=== PATIENT | female | born 1995 | race Caucasian/White ===

== ENCOUNTER 2016-05-06 13:44 | Emergency (ER) | payer OTHER ==
[2016-05-06] MEDS ORDERED: LORazepam 2 MG/ML SYRINGE IM STA (14:50)
[2016-05-06] MEDS ORDERED: ONDANSETRON 4 MG/2 ML VIAL IM STA (14:50)
--- NOTE | 2016-05-06 14:51 | ED ---
General Adult HPI - General Chief complaint: Anxiety Stated complaint: ANXIETY Time Seen by Provider: 05/06/16 14:47 Source: patient, RN notes reviewed Mode of arrival: ambulatory Limitations: no limitations - History of Present Illness Initial comments: Patient is a pleasant 21-year-old female presenting to the emergency department complaining of anxiety. Patient has chronic anxiety. Symptoms worsened last night around 7:00. Patient did not sleep well through the night. Patient is unable to take her anxiety medicine at this time secondary to nausea and vomiting which she also attributes to her anxiety. No fevers. Patient has had increased stress recently. - Related Data Home Medications Medication Instructions Recorded Confirmed Promethazine [Phenergan] 25 mg PO Q6H PRN 07/11/14 05/06/16 busPIRone HCL 15 mg PO BID 07/12/14 05/06/16 ALPRAZolam [Xanax] 0.5 mg PO TID PRN 05/06/16 05/06/16 Loratadine [Claritin] 10 mg PO DAILY 05/06/16 05/06/16 Mirtazapine [Remeron] 15 mg PO HS 05/06/16 05/06/16 Ondansetron [Zofran ODT] 8 mg PO Q8H PRN 05/06/16 05/06/16 Sertraline [Zoloft] 150 mg PO DAILY 05/06/16 05/06/16 Allergies Allergy/AdvReac Type Severity Reaction Status Date / Time No Known Allergies Allergy Verified 05/06/16 14:58 Review of Systems ROS Statement: Those systems with pertinent positive or pertinent negative responses have been documented in the HPI. ROS Other: All systems not noted in ROS Statement are negative. Constitutional: Denies: fever Eyes: Denies: eye pain ENT: Denies: ear pain Respiratory: Denies: cough Cardiovascular: Denies: chest pain Endocrine: Denies: fatigue Gastrointestinal: Reports: nausea, vomiting Genitourinary: Denies: dysuria Skin: Denies: rash Neurological: Denies: weakness Psychiatric: Reports: anxiety Past Medical History Past Medical History: No Reported History Additional Past Medical History / Comment(s): anxiety and nausea History of Any Multi-Drug Resistant Organisms: None Reported Past Surgical History: Adenoidectomy, Tonsillectomy Past Psychological History: Anxiety, Panic Disorder Smoking Status: Light tobacco smoker Past Alcohol Use History: None Reported Past Drug Use History: None Reported General Exam Limitations: no limitations General appearance: alert, anxious Head exam: Present: atraumatic Eye exam: Present: normal appearance, PERRL ENT exam: Present: normal oropharynx Neck exam: Present: normal inspection Respiratory exam: Present: normal lung sounds bilaterally Cardiovascular Exam: Present: tachycardia GI/Abdominal exam: Present: soft. Absent: tenderness Extremities exam: Present: normal inspection Neurological exam: Present: alert Psychiatric exam: Present: anxious Skin exam: Absent: rash Course Vital Signs 05/06/16 05/06/16 14:30 15:05 Temperature 98.6 F Pulse Rate 112 H 68 Respiratory 24 30 H Rate Blood Pressure 109/71 106/55 O2 Sat by Pulse 97 100 Oximetry Medical Decision Making - Medical Decision Making Patient reexamined and resting comfortably in bed. Patient appears much better and does request discharge home. Disposition Clinical Impression: Acute anxiety Disposition: HOME SELF-CARE Condition: Stable Instructions: Generalized Anxiety Disorder (ED) Additional Instructions: Please follow-up with your doctor in be in a week. Return for change or worsening symptoms or other concerns. Referrals: Rory Miner DO [Primary Care Provider] - 1-2 days
[2016-05-06 16:27] VITALS: BP 120/66; PULSE 65; RESP 16; TEMP 97.5
== END 2016-05-06 16:27 | disposition home or self-care (01) ==
LOC: EC 13:44
DX: F41.9 Anxiety disorder, unspecified (principal); F41.0 Panic disorder [episodic paroxysmal anxiety]; F17.200 Nicotine dependence, unspecified, uncomplicated; Z79.899 Other long term (current) drug therapy
CPT/HCPCS: 99283; 96372 ×2; J2060; J2405

== ENCOUNTER 2016-06-10 19:59 | Emergency (ER) | payer OTHER ==
[2016-06-10] MEDS ORDERED: ONDANSETRON 4 MG/2 ML VIAL IVP STA (20:48)
[2016-06-10] MEDS ORDERED: SODIUM CHLORIDE 0.9% 1,000 ML IV ONE (20:48)
[2016-06-10] MEDS ORDERED: LORazepam 2 MG/ML SYRINGE IV STA (20:48)
[2016-06-10 21:02] LABS: Basophils % (A) 0 %; CH 27.7; Eosinophils # (A) 0.1 k/uL (0-0.7); Eosinophils % (A) 1 %; HCT 43.9 % (34.0-46.0); HDW 2.37; HGB 14.1 gm/dL (11.4-16.0); Luc % (Auto) 1; Lymphocytes % (A) 22 %; MCH 27.2 pg (25.0-35.0); MCHC 32.2 g/dL (31.0-37.0); MCV 84.3 fL (80.0-100.0); Mean Platelet Volume 6.2; Monocytes # (A) 0.3 k/uL (0-1.0); Monocytes % (A) 4 %; Neutrophils # (A) 6.4 k/uL (1.3-7.7); Neutrophils % (A) 71 %; RDW 12.9 % (11.5-15.5); WBC (Perox) 9.23
[2016-06-10 21:11] LABS: ALT 25 U/L (9-52); AST 23 U/L (14-36); Alkaline Phosphatase 89 U/L (38-126); Anion Gap 16 mmol/L; Blood Urea Nitrogen 6 mg/dL (7-17); Calcium 10.5 mg/dL (8.4-10.2); Carbon Dioxide 23 mmol/L (22-30); Chloride 103 mmol/L (98-107); Glucose 116 mg/dL (74-99); Non-African American GFR(MDRD) >60 (>60 ml/min/1.73 sqM); Potassium 4.2 mmol/L (3.5-5.1); Sodium 142 mmol/L (137-145); Total Bilirubin 0.5 mg/dL (0.2-1.3); Total Protein 8.3 g/dL (6.3-8.2)
[2016-06-10 22:23] LABS: Appearance,Urine Cloudy (Clear); Bilirubin,Urine Negative (Negative); Glucose,Urine (UA) Negative (Negative); Ketones,Urine Negative (Negative); Leukocyte Esterase,Urine Negative (Negative); Mucus,Urine Occasional /hpf; Nitrite,Urine Negative (Negative); Particle Count 6598; Protein,Urine Trace (Negative); Specific Gravity,Urine 1.014 (1.001-1.035); Squamous Epithelial Cell,Urine 3 /hpf (0-4); UA Billing (MACRO vs. MICRO) MICRO; Urobilinogen,Urine <2.0 mg/dL (<2.0); WBC,Urine 1 /hpf (0-5)
--- NOTE | 2016-06-10 23:03 | ED ---
General Adult HPI - General Chief complaint: Anxiety Stated complaint: Anxiety Time Seen by Provider: 06/10/16 20:10 Source: patient Mode of arrival: EMS Limitations: no limitations - History of Present Illness Initial comments: 21-year-old female presenting for evaluation of anxiety with nausea and vomiting that started today. She states that she has a long-standing history of anxiety and it does present itself with nausea and vomiting during her severe exacerbations. She states that her grandfather recently which is been a stressor on her causing her to not eat over the last 3 weeks. She states that she will have the occasional cracker and a sip or 2 of water. Over the last 2 days she has been started to eat again but today without provocation or identifiable etiology she had an acute anxiety attack which express itself with severe anxiety, nausea, and vomiting. There is no associated hematemesis and she is only vomiting of stomach contents. She denies any preceding abdominal pain, dysuria, or diarrhea. 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 - Related Data Home Medications Medication Instructions Recorded Confirmed busPIRone HCL 15 mg PO BID 07/12/14 06/10/16 ALPRAZolam [Xanax] 0.5 - 1 mg PO TID PRN 05/06/16 06/10/16 Mirtazapine [Remeron] 15 mg PO HS 05/06/16 06/10/16 Ondansetron [Zofran ODT] 8 mg PO Q8H PRN 05/06/16 06/10/16 Sertraline [Zoloft] 150 mg PO DAILY 05/06/16 06/10/16 Allergies Allergy/AdvReac Type Severity Reaction Status Date / Time No Known Allergies Allergy Verified 06/10/16 20:17 Review of Systems ROS Statement: Those systems with pertinent positive or pertinent negative responses have been documented in the HPI. ROS Other: All systems not noted in ROS Statement are negative. Constitutional: Denies: fever, chills Eyes: Denies: eye pain, eye discharge ENT: Denies: ear pain, throat pain Respiratory: Denies: cough, dyspnea Cardiovascular: Denies: chest pain, palpitations Endocrine: Denies: polydipsia, polyuria Gastrointestinal: Reports: nausea, vomiting. Denies: abdominal pain, diarrhea, constipation, hematemesis, melena, hematochezia Genitourinary: Denies: urgency, dysuria Musculoskeletal: Denies: back pain, myalgia Skin: Denies: rash, lesions Neurological: Denies: headache, weakness Psychiatric: Reports: anxiety. Denies: homicidal thoughts, suicidal thoughts Past Medical History Past Medical History: No Reported History Additional Past Medical History / Comment(s): anxiety and nausea History of Any Multi-Drug Resistant Organisms: None Reported Past Surgical History: Adenoidectomy, Tonsillectomy Past Psychological History: Anxiety, Panic Disorder Smoking Status: Light tobacco smoker Past Alcohol Use History: None Reported Past Drug Use History: Marijuana General Exam Limitations: no limitations General appearance: alert, anxious Head exam: Present: atraumatic, normocephalic Eye exam: Present: normal appearance, EOMI ENT exam: Present: normal exam, normal oropharynx Neck exam: Present: normal inspection, tenderness Respiratory exam: Present: normal lung sounds bilaterally. Absent: respiratory distress, wheezes, rales Cardiovascular Exam: Present: normal rhythm, tachycardia GI/Abdominal exam: Present: soft. Absent: distended, tenderness, guarding Rectal exam: Present: deferred Extremities exam: Present: normal inspection, full ROM Back exam: Present: normal inspection, full ROM Neurological exam: Present: alert, oriented X3, normal gait Psychiatric exam: Present: normal affect, normal mood Skin exam: Present: warm, dry, intact Course Vital Signs 06/10/16 06/10/16 06/10/16 20:01 21:14 23:10 Temperature 98.8 F 97.2 F L Pulse Rate 129 H 115 H 114 H Respiratory 34 H 22 16 Rate Blood Pressure 141/83 129/81 138/62 O2 Sat by Pulse 99 97 97 Oximetry Medical Decision Making - Medical Decision Making 21-year-old female presented for evaluation of anxiety attack of sudden onset today. Patient states that her anxiety attacks have a concurrent nausea and vomiting component which she has been experiencing since the onset of her symptoms. Denies any preceding abdominal pain, dysuria, vaginal discharge or bleeding, or diarrhea. Physical examination reveals a markedly distressed and anxious female who is tearful but obeying commands. Physical exam is benign reveals no significant abnormalities. Although this is consistent with previous anxiety attacks we'll obtain laboratory workup to rule out any medical etiology. Labs revealed no significant abnormalities including negative for UTI and urine . The patient was reevaluated after being given Ativan and had marked improvement in symptoms, sitting on bed without crying and able to smile. The patient was informed of these results and that she would be discharged with instructions to follow-up with her primary care physician for further psychiatric referral. She was advised to return to this facility if her symptoms should worsen or persist. She acknowledged an understanding of this information and agreed with this plan of care. - Lab Data Result diagrams: 06/10/16 20:40 06/10/16 20:40 Lab Results 06/10/16 06/10/16 06/10/16 Range/Units 20:40 20:40 22:00 WBC 9.0 (3.8-10.6) k/uL RBC 5.20 (3.80-5.40) m/uL Hgb 14.1 (11.4-16.0) gm/dL Hct 43.9 (34.0-46.0) % MCV 84.3 (80.0-100.0) fL MCH 27.2 (25.0-35.0) pg MCHC 32.2 (31.0-37.0) g/dL RDW 12.9 (11.5-15.5) % Plt Count 428 (150-450) k/uL Neutrophils % 71 % Lymphocytes % 22 % Monocytes % 4 % Eosinophils % 1 % Basophils % 0 % Neutrophils # 6.4 (1.3-7.7) k/uL Lymphocytes # 2.0 (1.0-4.8) k/uL Monocytes # 0.3 (0-1.0) k/uL Eosinophils # 0.1 (0-0.7) k/uL Basophils # 0.0 (0-0.2) k/uL Sodium 142 (137-145) mmol/L Potassium 4.2 (3.5-5.1) mmol/L Chloride 103 (98-107) mmol/L Carbon Dioxide 23 (22-30) mmol/L Anion Gap 16 mmol/L BUN 6 L (7-17) mg/dL Creatinine 0.50 L (0.52-1.04) mg/dL Est GFR (MDRD) Af Amer >60 (>60 ml/min/1.73 sqM) Est GFR (MDRD) Non-Af >60 (>60 ml/min/1.73 sqM) Glucose 116 H (74-99) mg/dL Calcium 10.5 H (8.4-10.2) mg/dL Total Bilirubin 0.5 (0.2-1.3) mg/dL AST 23 (14-36) U/L ALT 25 (9-52) U/L Alkaline Phosphatase 89 (38-126) U/L Total Protein 8.3 H (6.3-8.2) g/dL Albumin 5.0 (3.5-5.0) g/dL Lipase 32 (23-300) U/L Urine Color Urine Appearance (Clear) Urine pH (5.0-8.0) Ur Specific [place] (1.001-1.035) Urine Protein (Negative) Urine Glucose (UA) (Negative) Urine Ketones (Negative) Urine Blood (Negative) Urine Nitrate (Negative) Urine Bilirubin (Negative) Urine Urobilinogen (<2.0) mg/dL Ur Leukocyte Esterase (Negative) Urine WBC (0-5) /hpf Ur Squamous Epith Cells (0-4) /hpf Urine Mucus (None) /hpf Urine HCG, Qual Not Detected (Not Detectd) 06/10/16 Range/Units 22:00 WBC (3.8-10.6) k/uL RBC (3.80-5.40) m/uL Hgb (11.4-16.0) gm/dL Hct (34.0-46.0) % MCV (80.0-100.0) fL MCH (25.0-35.0) pg MCHC (31.0-37.0) g/dL RDW (11.5-15.5) % Plt Count (150-450) k/uL Neutrophils % % Lymphocytes % % Monocytes % % Eosinophils % % Basophils % % Neutrophils # (1.3-7.7) k/uL Lymphocytes # (1.0-4.8) k/uL Monocytes # (0-1.0) k/uL Eosinophils # (0-0.7) k/uL Basophils # (0-0.2) k/uL Sodium (137-145) mmol/L Potassium (3.5-5.1) mmol/L Chloride (98-107) mmol/L Carbon Dioxide (22-30) mmol/L Anion Gap mmol/L BUN (7-17) mg/dL Creatinine (0.52-1.04) mg/dL Est GFR (MDRD) Af Amer (>60 ml/min/1.73 sqM) Est GFR (MDRD) Non-Af (>60 ml/min/1.73 sqM) Glucose (74-99) mg/dL Calcium (8.4-10.2) mg/dL Total Bilirubin (0.2-1.3) mg/dL AST (14-36) U/L ALT (9-52) U/L Alkaline Phosphatase (38-126) U/L Total Protein (6.3-8.2) g/dL Albumin (3.5-5.0) g/dL Lipase (23-300) U/L Urine Color Yellow Urine Appearance Cloudy H (Clear) Urine pH 8.0 (5.0-8.0) Ur Specific [place] 1.014 (1.001-1.035) Urine Protein Trace H (Negative) Urine Glucose (UA) Negative (Negative) Urine Ketones Negative (Negative) Urine Blood Negative (Negative) Urine Nitrate Negative (Negative) Urine Bilirubin Negative (Negative) Urine Urobilinogen <2.0 (<2.0) mg/dL Ur Leukocyte Esterase Negative (Negative) Urine WBC 1 (0-5) /hpf Ur Squamous Epith Cells 3 (0-4) /hpf Urine Mucus Occasional H (None) /hpf Urine HCG, Qual (Not Detectd) Disposition Clinical Impression: Anxiety, Nausea & vomiting Disposition: HOME SELF-CARE Condition: Stable Instructions: Generalized Anxiety Disorder (ED) Referrals: Rory Miner DO [Primary Care Provider] - 1-2 days Time of Disposition: 23:03
[2016-06-10 23:13] VITALS: BP 138/62; PULSE 114; RESP 16; TEMP 97.2
== END 2016-06-10 23:10 | disposition home or self-care (01) ==
LOC: EC 19:59
DX: F41.9 Anxiety disorder, unspecified (principal); R11.2 Nausea with vomiting, unspecified; F41.0 Panic disorder [episodic paroxysmal anxiety]; F17.200 Nicotine dependence, unspecified, uncomplicated; Z79.899 Other long term (current) drug therapy
CPT/HCPCS: 36415; 80053; 83690; 85025; 81001; 81025; 96374; 96375; 96361 ×2; 99283; J2060; J2405

== ENCOUNTER 2016-08-28 04:14 | Emergency (ER) | payer OTHER ==
[2016-08-28 04:45] VITALS: TEMP 98.5
[2016-08-28] MEDS ORDERED: LORazepam 2 MG/ML SYRINGE IM STA (05:06)
--- NOTE | 2016-08-28 05:08 | ED ---
General Adult HPI - General Chief complaint: Anxiety Stated complaint: anxiety Time Seen by Provider: 08/28/16 04:43 Source: patient, RN notes reviewed Mode of arrival: wheelchair Limitations: no limitations - History of Present Illness Initial comments: Patient is a pleasant 21-year-old female presenting to the emergency department with concerns for anxiety. Patient has chronic anxiety. Patient states she cannot afford her medication and has been off her Xanax recently. Patient states symptoms are similar to her prior anxiety. Patient feels tense all over. - Related Data Home Medications Medication Instructions Recorded Confirmed busPIRone HCL 15 mg PO BID 07/12/14 08/28/16 ALPRAZolam [Xanax] 0.5 - 1 mg PO TID PRN 05/06/16 08/28/16 Mirtazapine [Remeron] 15 mg PO HS 05/06/16 08/28/16 Ondansetron [Zofran ODT] 8 mg PO Q8H PRN 05/06/16 08/28/16 Sertraline [Zoloft] 150 mg PO DAILY 05/06/16 08/28/16 Previous Rx's Medication Instructions Recorded Ondansetron Odt [Zofran Odt] 4 mg PO Q8HR PRN #10 tab 08/28/16 Allergies Allergy/AdvReac Type Severity Reaction Status Date / Time No Known Allergies Allergy Verified 08/28/16 04:31 Review of Systems ROS Statement: Those systems with pertinent positive or pertinent negative responses have been documented in the HPI. ROS Other: All systems not noted in ROS Statement are negative. Constitutional: Denies: fever Eyes: Denies: eye pain ENT: Denies: ear pain Respiratory: Denies: cough Cardiovascular: Denies: chest pain Endocrine: Denies: fatigue Gastrointestinal: Denies: abdominal pain Genitourinary: Denies: dysuria Musculoskeletal: Denies: arthralgia Skin: Denies: rash Neurological: Denies: weakness Psychiatric: Reports: anxiety Past Medical History Past Medical History: No Reported History Additional Past Medical History / Comment(s): anxiety and nausea History of Any Multi-Drug Resistant Organisms: None Reported Past Surgical History: Adenoidectomy, Tonsillectomy Past Psychological History: Anxiety, Panic Disorder Smoking Status: Light tobacco smoker Past Alcohol Use History: None Reported Past Drug Use History: Marijuana General Exam Limitations: no limitations General appearance: alert, anxious Head exam: Present: atraumatic Eye exam: Present: normal appearance, PERRL Pupils: Present: mydriatic ENT exam: Present: normal oropharynx Neck exam: Present: normal inspection Respiratory exam: Present: normal lung sounds bilaterally Cardiovascular Exam: Present: tachycardia GI/Abdominal exam: Present: soft. Absent: distended, tenderness, guarding, rebound, rigid Extremities exam: Present: normal inspection Back exam: Present: normal inspection Neurological exam: Present: alert Psychiatric exam: Present: anxious Skin exam: Present: normal color Course Vital Signs 08/28/16 08/28/16 08/28/16 04:28 05:34 06:01 Temperature 98.5 F Pulse Rate 142 H 103 H Respiratory 40 H 20 Rate Blood Pressure 94/81 122/75 O2 Sat by Pulse 98 99 Oximetry Medical Decision Making - Medical Decision Making Patient reexamined and significant improvement. Patient resting comfortably in bed. Vital signs improved. Patient comfortable discharge. Patient does request nausea medicine for home. Patient states she will follow-up with her doctor today. Disposition Clinical Impression: Acute anxiety Disposition: HOME SELF-CARE Condition: Stable Instructions: Generalized Anxiety Disorder (ED) Additional Instructions: please follow-up today with her doctor as planned. Return for worsening symptoms or other concerns. Prescriptions: Ondansetron Odt [Zofran Odt] 4 mg PO Q8HR PRN #10 tab PRN Reason: Nausea Referrals: Rory Miner DO [Primary Care Provider] - 1-2 days Time of Disposition: 06:08
[2016-08-28 05:35] VITALS: BP 122/75; PULSE 103
[2016-08-28] MEDS ORDERED: ONDANSETRON ODT 4 MG TAB PO STA (05:36)
[2016-08-28 06:01] VITALS: RESP 20
== END 2016-08-28 06:17 | disposition home or self-care (01) ==
LOC: EC 04:14
DX: F41.9 Anxiety disorder, unspecified (principal); R00.0 Tachycardia, unspecified; F17.200 Nicotine dependence, unspecified, uncomplicated; Z79.899 Other long term (current) drug therapy
CPT/HCPCS: 99282; 96372; J2060

== ENCOUNTER 2017-01-04 15:19 | Emergency (ER) | payer OTHER ==
[2017-01-04] MEDS ORDERED: LORazepam 1 MG TAB PO STA (15:57)
[2017-01-04] MEDS ORDERED: SODIUM CHLORIDE 0.9% 1,000 ML IV STA ×2 (15:57)
[2017-01-04] MEDS ORDERED: ONDANSETRON 4 MG/2 ML VIAL IVP STA (15:57)
--- NOTE | 2017-01-04 16:04 | ED ---
General Adult HPI - General Chief complaint: Anxiety Stated complaint: anxiety Time Seen by Provider: 01/04/17 15:39 Source: patient, family, RN notes reviewed Mode of arrival: ambulatory Limitations: no limitations - History of Present Illness Initial comments: Chief complaint history of present illness is a 21-year-old female here with him mother. Patient's had a lot of [place] recently. Her father in the last day or 2. Her grandfather with whom she lived for years this past April. Patient has had a long standing history of anxiety. In the past she's been on Xanax as well as Zoloft. Patient reports that she takes that when she took Zoloft in the past because diarrhea. Patient has extreme phobia for vomiting. And feels nauseated all the time. She has used Reglan, Phenergan and Zofran in the past Zofran works best at this time the rest stop working. Patient reports she is depressed grandmother states that she stated she just wanted to go home and lay down and not wake up. She does not have a plan. She has been scratching her forearms. - Related Data Home Medications Medication Instructions Recorded Confirmed busPIRone HCL 15 mg PO BID 07/12/14 01/04/17 ALPRAZolam [Xanax] 0.5 - 1 mg PO TID PRN 05/06/16 01/04/17 Mirtazapine [Remeron] 15 mg PO HS 05/06/16 01/04/17 Ondansetron [Zofran ODT] 8 mg PO Q8H PRN 05/06/16 01/04/17 Previous Rx's Medication Instructions Recorded ALPRAZolam [Xanax] 0.5 mg PO DAILY PRN #5 tablet 01/04/17 Ondansetron Odt [Zofran Odt] 4 mg PO Q8HR PRN #10 tab 01/04/17 Allergies Allergy/AdvReac Type Severity Reaction Status Date / Time No Known Allergies Allergy Verified 01/04/17 16:35 Review of Systems ROS Statement: Those systems with pertinent positive or pertinent negative responses have been documented in the HPI. Review of systems. The patient reports she normally weighs 98 pounds is currently 88 pounds. States she has difficulty eating because she is nauseated and she does not want to vomit so she will need. Diarrhea started yesterday she thinks because of the Zoloft which cause diarrhea in the past. Patient denying any chest pain or shortness of breath. She is extremely anxious and shaky. All systems reviewed. Past history anxiety, surgeries tonsils and adenoids. Family history father recently both mother and father are alcoholics. Father they think of hypertension recently. Patient denies ALLERGIES occasionally smokes, rarely uses alcohol. ROS Other: All systems not noted in ROS Statement are negative. Past Medical History Past Medical History: No Reported History Additional Past Medical History / Comment(s): anxiety and nausea History of Any Multi-Drug Resistant Organisms: None Reported Past Surgical History: Adenoidectomy, Tonsillectomy Past Psychological History: Anxiety, Panic Disorder Smoking Status: Light tobacco smoker Past Alcohol Use History: None Reported Past Drug Use History: Marijuana General Exam - General Exam Comments Initial Comments: General: The patient is awake and alert, patient is distressed. Very anxious. His shaking. Depressed and sad because her father in the last 48 hours. Vital signs temperature 97.1 pulse 137 history of tachycardia in the past. Respiratory rate 24 pulse ox 99% room air blood pressure 138/85. Eye: Pupils are equal, round and reactive to light, extra-ocular movements are intact ; there is normal conjunctiva bilaterally. No signs of icterus. Ears, nose, mouth and throat: There are moist mucous membranes and no oral lesions. Neck: The neck is supple, there is no tenderness . Cardiovascular: Tachycardic heart rate, 1:30. No murmur, rub or gallop is appreciated. Respiratory: Lungs are clear to auscultation, respirations are non-labored, breath sounds are equal. No wheezes, stridor, rales, or rhonchi. Gastrointestinal: Patient complains of feeling nauseated but she hasn't eaten anything or has had anything to drink because she is deathly afraid of vomiting. States she's had loose stool for the past day after restarting Zoloft Back: There is no tenderness to palpation in the midline. There is no obvious deformity. No rashes noted. Musculoskeletal: Patient has a history of cutting herself she is recently restarted causing abrasions to her left forearm. None of which are infected or deep. Neurological: No neuro deficits. No balance problems. Able to walk. She does have shakes from anxiety. Skin: Skin is warm and dry and no rashes or lesions are noted. Psychiatric: Severe anxiety. States she used to see a counselor but didn't get along with the counselor. Used to take Zoloft but cause diarrhea. Has taken Xanax 0.5 on occasion when her anxiety becomes really bad. Denies a plan for suicide but reports she is depressed. Limitations: no limitations Course Vital Signs 01/04/17 01/04/17 15:30 17:44 Temperature 97.1 F L 98.2 F Pulse Rate 130 H 125 H Respiratory 24 18 Rate Blood Pressure 138/85 104/55 O2 Sat by Pulse 99 100 Oximetry Medical Decision Making - Medical Decision Making Medical decision making; the patient's white count 7.7 hemoglobin 14 hematocrit 44. Potassium is 4.3 with a BUN of 13 creatinine 0.5 and GFR greater than 60. Glucose 106. TSH normal at 0.47. The patient's feeling much better smiling and laughing. She'll be given a number for social insurance administrator follow-up. She also be given a prescription for Xanax for 5 days. 0.5 mg per dose. And Zofran ODT. - Lab Data Result diagrams: 01/04/17 16:20 01/04/17 16:20 Lab Results 01/04/17 01/04/17 Range/Units 16:20 16:20 WBC 7.7 (3.8-10.6) k/uL RBC 5.26 (3.80-5.40) m/uL Hgb 14.7 (11.4-16.0) gm/dL Hct 44.3 (34.0-46.0) % MCV 84.2 (80.0-100.0) fL MCH 28.0 (25.0-35.0) pg MCHC 33.2 (31.0-37.0) g/dL RDW 13.9 (11.5-15.5) % Plt Count 414 (150-450) k/uL Neutrophils % 67 % Lymphocytes % 26 % Monocytes % 5 % Eosinophils % 1 % Basophils % 0 % Neutrophils # 5.1 (1.3-7.7) k/uL Lymphocytes # 2.0 (1.0-4.8) k/uL Monocytes # 0.4 (0-1.0) k/uL Eosinophils # 0.1 (0-0.7) k/uL Basophils # 0.0 (0-0.2) k/uL Sodium 141 (137-145) mmol/L Potassium 4.3 (3.5-5.1) mmol/L Chloride 106 (98-107) mmol/L Carbon Dioxide 18 L (22-30) mmol/L Anion Gap 17 mmol/L BUN 13 (7-17) mg/dL Creatinine 0.50 L (0.52-1.04) mg/dL Est GFR (MDRD) Af Amer >60 (>60 ml/min/1.73 sqM) Est GFR (MDRD) Non-Af >60 (>60 ml/min/1.73 sqM) Glucose 106 H (74-99) mg/dL Calcium 10.7 H (8.4-10.2) mg/dL Total Bilirubin 1.0 (0.2-1.3) mg/dL AST 21 (14-36) U/L ALT 33 (9-52) U/L Alkaline Phosphatase 94 (38-126) U/L Total Protein 8.2 (6.3-8.2) g/dL Albumin 5.1 H (3.5-5.0) g/dL TSH 0.470 (0.465-4.680) mIU/L Disposition Clinical Impression: Anxiety attack Disposition: HOME SELF-CARE Condition: Stable Instructions: Generalized Anxiety Disorder (ED) Additional Instructions: Follow-up with Dr. Miner. Take Xanax 0.5 as needed one per day. Zofran for nausea vomiting. Advance her diet. Follow-up with social welfare administrator Med at [phone]. Prescriptions: ALPRAZolam [Xanax] 0.5 mg PO DAILY PRN #5 tablet PRN Reason: Anxiety Ondansetron Odt [Zofran Odt] 4 mg PO Q8HR PRN #10 tab PRN Reason: Nausea vomiting Referrals: Rory Miner DO [Primary Care Provider] - 1-2 days Time of Disposition: 18:42
[2017-01-04 16:31] LABS: Basophils % (A) 0 %; CH 29.3; CHCM 34.9; Eosinophils # (A) 0.1 k/uL (0-0.7); Eosinophils % (A) 1 %; HCT 44.3 % (34.0-46.0); HDW 2.29; HGB 14.7 gm/dL (11.4-16.0); Luc # (Auto) 0.12; Luc % (Auto) 2; Lymphocytes % (A) 26 %; MCHC 33.2 g/dL (31.0-37.0); MCV 84.2 fL (80.0-100.0); Mean Platelet Volume 6.6; Monocytes # (A) 0.4 k/uL (0-1.0); Monocytes % (A) 5 %; Neutrophils # (A) 5.1 k/uL (1.3-7.7); Neutrophils % (A) 67 %; RBC 5.26 m/uL (3.80-5.40); RDW 13.9 % (11.5-15.5); WBC 7.7 k/uL (3.8-10.6); WBC (Perox) 7.57
[2017-01-04 16:41] LABS: ALT 33 U/L (9-52); AST 21 U/L (14-36); Alkaline Phosphatase 94 U/L (38-126); Anion Gap 17 mmol/L; Blood Urea Nitrogen 13 mg/dL (7-17); Calcium 10.7 mg/dL (8.4-10.2); Carbon Dioxide 18 mmol/L (22-30); Chloride 106 mmol/L (98-107); Glucose 106 mg/dL (74-99); Non-African American GFR(MDRD) >60 (>60 ml/min/1.73 sqM); Potassium 4.3 mmol/L (3.5-5.1); Sodium 141 mmol/L (137-145); Total Protein 8.2 g/dL (6.3-8.2)
[2017-01-04 18:59] VITALS: BP 133/66; PULSE 133; RESP 15; TEMP 99.5
== END 2017-01-04 18:57 | disposition home or self-care (01) ==
LOC: EC 15:19
DX: F41.9 Anxiety disorder, unspecified (principal); R00.0 Tachycardia, unspecified; R11.0 Nausea; F17.200 Nicotine dependence, unspecified, uncomplicated; Z79.899 Other long term (current) drug therapy
CPT/HCPCS: 36415; 80053; 84443; 85025; 99283; 96374; 96361 ×2; J2405

== ENCOUNTER → 2017-04-05 | Outpatient (CLI) | payer OTHER | END | disposition home or self-care (01) | LOC: RADECHMAIN 12:21 | PROVIDERS: ATTEND Family Medicine | DX: R55 Syncope and collapse (principal) | CPT/HCPCS: 93270; 93271 ==

== ENCOUNTER 2017-08-21 10:15 | Emergency (ER) | payer OTHER ==
[2017-08-21 10:20] VITALS: BP 130/100; PULSE 60; RESP 18; TEMP 98
[2017-08-21] MEDS ORDERED: LORazepam 1 MG TAB PO STA (10:27)
[2017-08-21] MEDS ORDERED: ONDANSETRON ODT 4 MG TAB PO STA (10:27)
--- NOTE | 2017-08-21 10:36 | ED ---
Anxiety HPI - General Chief Complaint: Anxiety Stated Complaint: Anxiety Time Seen by Provider: 08/21/17 10:20 Source: patient, RN notes reviewed Mode of arrival: ambulatory Limitations: no limitations - History of Present Illness Initial Comments: 22-year-old female presents emergency from for severe anxiety panic attacks. Patient states she never takes Xanax 0.5 mg 3 times a day. Patient states that she just ran out. Patient states that she's having severe anxiety today. Patient states that she's in between insurances and cannot see her primary care physician. Patient also has ongoing nausea in which she takes a milligrams of Zofran daily. Patient denies any suicidal or homicidal ideations. Patient is here with family who states that she is stable that she would never hurt herself. Patient denies any physical complaints. - Related Data Home Medications: Home Medications Medication Instructions Recorded Confirmed Mirtazapine [Remeron] 15 mg PO HS 05/06/16 01/04/17 Ondansetron [Zofran ODT] 8 mg PO Q8H PRN 05/06/16 01/04/17 Norgestimate-Ethinyl Estradiol 1 tab PO HS 08/21/17 08/21/17 [Sprintec 28 Day Tablet] Previous Rx's Medication Instructions Recorded ALPRAZolam [Xanax] 0.5 mg PO DAILY PRN #5 tablet 01/04/17 ALPRAZolam [Xanax] 1 mg PO Q8HR PRN #10 tab 08/21/17 Allergies/Adverse Reactions: Allergies Allergy/AdvReac Type Severity Reaction Status Date / Time No Known Allergies Allergy Verified 08/21/17 10:30 Review of Systems ROS Statement: Those systems with pertinent positive or pertinent negative responses have been documented in the HPI. ROS Other: All systems not noted in ROS Statement are negative. Past Medical History Past Medical History: No Reported History Additional Past Medical History / Comment(s): anxiety and nausea History of Any Multi-Drug Resistant Organisms: None Reported Past Surgical History: Adenoidectomy, Tonsillectomy Past Psychological History: Anxiety, Panic Disorder Smoking Status: Light tobacco smoker Past Alcohol Use History: None Reported Past Drug Use History: Marijuana General Exam Limitations: no limitations General appearance: alert, in no apparent distress, anxious Head exam: Present: atraumatic, normocephalic, normal inspection Eye exam: Present: normal appearance, PERRL, EOMI. Absent: scleral icterus, conjunctival injection, periorbital swelling ENT exam: Present: normal exam, normal oropharynx, mucous membranes moist Neck exam: Present: normal inspection, full ROM. Absent: tenderness, meningismus, lymphadenopathy Respiratory exam: Present: normal lung sounds bilaterally. Absent: respiratory distress, wheezes, rales, rhonchi, stridor Cardiovascular Exam: Present: regular rate, normal rhythm, normal heart sounds. Absent: systolic murmur, diastolic murmur, rubs, gallop, clicks GI/Abdominal exam: Present: soft, normal bowel sounds. Absent: distended, tenderness, guarding, rebound, rigid Neurological exam: Present: alert, oriented X3, CN II-XII intact Psychiatric exam: Present: anxious Skin exam: Present: warm, dry, intact, normal color. Absent: rash Course Vital Signs 08/21/17 10:17 Temperature 98.0 F Pulse Rate 60 Respiratory 18 Rate Blood Pressure 130/100 O2 Sat by Pulse 99 Oximetry Medical Decision Making - Medical Decision Making 22-year-old female presented for severe anxiety, panic attacks. Patient will be given Ativan in the emergency department. Patient will be discharged on her Xanax and advised to follow-up. Disposition Clinical Impression: Panic attack, Acute anxiety Disposition: HOME SELF-CARE Condition: Stable Instructions: Generalized Anxiety Disorder (ED) Additional Instructions: Please return to the Emergency Department if symptoms worsen or any other concerns. Prescriptions: ALPRAZolam [Xanax] 1 mg PO Q8HR PRN #10 tab PRN Reason: Anxiety Is patient prescribed a controlled substance at d/c from ED?: Yes If prescribed controlled substance>3 days was MAPS reviewed?: Yes When asked, does pt state using other controlled substances?: Yes Referrals: Rory Miner DO [Primary Care Provider] - 1-2 days Time of Disposition: 10:36
== END 2017-08-21 11:10 | disposition home or self-care (01) ==
LOC: EC 10:15
DX: F41.0 Panic disorder [episodic paroxysmal anxiety] (principal); R11.0 Nausea; F17.200 Nicotine dependence, unspecified, uncomplicated; Z79.3 Long term (current) use of hormonal contraceptives; Z79.899 Other long term (current) drug therapy
CPT/HCPCS: 99283

== ENCOUNTER 2017-08-21 13:54 | Emergency (ER) | payer OTHER ==
[2017-08-21 14:02] VITALS: TEMP 97
[2017-08-21] MEDS ORDERED: SODIUM CHLORIDE 0.9% 1,000 ML IV STA ×2 (14:36→16:23)
[2017-08-21] MEDS ORDERED: ONDANSETRON 4 MG/2 ML VIAL IVP STA (14:36)
[2017-08-21] MEDS ORDERED: SODIUM CHLORIDE 0.9% 500 ML IV STA (14:36)
[2017-08-21] MEDS ORDERED: LORazepam 2 MG/ML INJ IV STA (14:37)
[2017-08-21] MEDS ORDERED: MIRTAZAPINE 15 MG TAB PO STA (14:38)
[2017-08-21 15:04] LABS: Basophils % (A) 0 %; Eosinophils # (A) 0.1 k/uL (0-0.7); Eosinophils % (A) 1 %; HCT 38.4 % (34.0-46.0); Lymphocytes # (A) 1.1 k/uL (1.0-4.8); Lymphocytes % (A) 11 %; MCH 27.3 pg (25.0-35.0); MCHC 33.8 g/dL (31.0-37.0); MCV 80.8 fL (80.0-100.0); Mean Platelet Volume 6.2; Monocytes # (A) 0.2 k/uL (0-1.0); Monocytes % (A) 2 %; Neutrophils # (A) 9.2 k/uL (1.3-7.7); Neutrophils % (A) 85 %; Platelet Count 379 k/uL (150-450); RBC 4.75 m/uL (3.80-5.40); RDW 12.9 % (11.5-15.5); WBC 10.8 k/uL (3.8-10.6)
[2017-08-21 15:17] LABS: ALT 31 U/L (9-52); AST 24 U/L (14-36); Alkaline Phosphatase 70 U/L (38-126); Anion Gap 14 mmol/L; Blood Urea Nitrogen 8 mg/dL (7-17); Calcium 10.6 mg/dL (8.4-10.2); Carbon Dioxide 23 mmol/L (22-30); Chloride 101 mmol/L (98-107); Glucose 111 mg/dL (74-99); Magnesium 1.9 mg/dL (1.6-2.3); Phosphorus 3.7 mg/dL (2.5-4.5); Potassium 4.3 mmol/L (3.5-5.1); Sodium 138 mmol/L (137-145); Total Bilirubin 0.4 mg/dL (0.2-1.3); Total Protein 7.6 g/dL (6.3-8.2)
--- NOTE | 2017-08-21 15:28 | ED ---
General Adult HPI - General Chief complaint: Anxiety Stated complaint: Anxiety/Nausea Time Seen by Provider: 08/21/17 14:16 Source: patient, RN notes reviewed, old records reviewed Mode of arrival: ambulatory Limitations: no limitations - History of Present Illness Initial comments: This is a 22-year-old female the ER for evaluation. Patient presents for evaluation of persistent anxiety. Patient going to multiple stressors, stressors related to recent family loss including father and mother. Patient is here with grandma today. Patient was in ER earlier today for evaluation of same symptoms, anxiety. Patient does not want herself or anyone else, patient denies any alcohol - Related Data Home Medications Medication Instructions Recorded Confirmed Mirtazapine [Remeron] 15 mg PO HS 05/06/16 08/21/17 Ondansetron [Zofran ODT] 8 mg PO Q8H PRN 05/06/16 08/21/17 Norgestimate-Ethinyl Estradiol 1 tab PO HS 08/21/17 08/21/17 [Sprintec 28 Day Tablet] Previous Rx's Medication Instructions Recorded ALPRAZolam [Xanax] 1 mg PO Q8HR PRN #10 tab 08/21/17 Allergies Allergy/AdvReac Type Severity Reaction Status Date / Time No Known Allergies Allergy Verified 08/21/17 14:05 Review of Systems ROS Statement: Those systems with pertinent positive or pertinent negative responses have been documented in the HPI. ROS Other: All systems not noted in ROS Statement are negative. Past Medical History Past Medical History: No Reported History Additional Past Medical History / Comment(s): anxiety and nausea History of Any Multi-Drug Resistant Organisms: None Reported Past Surgical History: Adenoidectomy, Tonsillectomy Past Psychological History: Anxiety, Panic Disorder Smoking Status: Light tobacco smoker Past Alcohol Use History: None Reported Past Drug Use History: Marijuana General Exam Limitations: no limitations General appearance: alert, in no apparent distress, anxious Head exam: Present: atraumatic, normocephalic, normal inspection Eye exam: Present: normal appearance, PERRL, EOMI. Absent: scleral icterus, conjunctival injection, periorbital swelling ENT exam: Present: normal exam, mucous membranes moist Neck exam: Present: normal inspection. Absent: tenderness, meningismus, lymphadenopathy Respiratory exam: Present: normal lung sounds bilaterally. Absent: respiratory distress, wheezes, rales, rhonchi, stridor Cardiovascular Exam: Present: normal rhythm, tachycardia, normal heart sounds. Absent: systolic murmur, diastolic murmur, rubs, gallop, clicks GI/Abdominal exam: Present: soft, normal bowel sounds. Absent: distended, tenderness, guarding, rebound, rigid Extremities exam: Present: normal inspection, full ROM, normal capillary refill. Absent: tenderness, pedal edema, joint swelling, calf tenderness Back exam: Present: normal inspection Neurological exam: Present: alert, oriented X3, CN II-XII intact Psychiatric exam: Present: normal affect, normal mood Skin exam: Present: warm, dry, intact, normal color. Absent: rash Course Vital Signs 08/21/17 13:59 Temperature 97.0 F L Pulse Rate 128 H Respiratory 18 Rate Blood Pressure 124/75 O2 Sat by Pulse 100 Oximetry - Reevaluation(s) Reevaluation #1: 08/21/17 15:38 ER visit from earlier today is reviewed Reevaluation #2: 08/21/17 15:38 Patient feeling better here in the ER EKG Findings - EKG Comments: EKG Findings:: Tach cardia rate 106, FL 160, QRS 80, QTC 464 Medical Decision Making - Medical Decision Making 20 female DEL with recurrent anxiety episode. Patient given prescription, patient will be discharged - Lab Data Result diagrams: 08/21/17 14:45 08/21/17 14:45 Lab Results 08/21/17 08/21/17 Range/Units 14:45 14:45 WBC 10.8 H (3.8-10.6) k/uL RBC 4.75 (3.80-5.40) m/uL Hgb 13.0 (11.4-16.0) gm/dL Hct 38.4 (34.0-46.0) % MCV 80.8 (80.0-100.0) fL MCH 27.3 (25.0-35.0) pg MCHC 33.8 (31.0-37.0) g/dL RDW 12.9 (11.5-15.5) % Plt Count 379 (150-450) k/uL Neutrophils % 85 % Lymphocytes % 11 % Monocytes % 2 % Eosinophils % 1 % Basophils % 0 % Neutrophils # 9.2 H (1.3-7.7) k/uL Lymphocytes # 1.1 (1.0-4.8) k/uL Monocytes # 0.2 (0-1.0) k/uL Eosinophils # 0.1 (0-0.7) k/uL Basophils # 0.0 (0-0.2) k/uL Sodium 138 (137-145) mmol/L Potassium 4.3 (3.5-5.1) mmol/L Chloride 101 (98-107) mmol/L Carbon Dioxide 23 (22-30) mmol/L Anion Gap 14 mmol/L BUN 8 (7-17) mg/dL Creatinine 0.45 L (0.52-1.04) mg/dL Est GFR (CKD-EPI)AfAm >90 (>60 ml/min/1.73 sqM) Est GFR (CKD-EPI)NonAf >90 (>60 ml/min/1.73 sqM) Glucose 111 H (74-99) mg/dL Calcium 10.6 H (8.4-10.2) mg/dL Phosphorus 3.7 (2.5-4.5) mg/dL Magnesium 1.9 (1.6-2.3) mg/dL Total Bilirubin 0.4 (0.2-1.3) mg/dL AST 24 (14-36) U/L ALT 31 (9-52) U/L Alkaline Phosphatase 70 (38-126) U/L Total Protein 7.6 (6.3-8.2) g/dL Albumin 5.0 (3.5-5.0) g/dL Disposition Clinical Impression: Panic disorder, Acute anxiety Disposition: HOME SELF-CARE Instructions: Generalized Anxiety Disorder (ED) Is patient prescribed a controlled substance at d/c from ED?: No Referrals: Rory Miner DO [Primary Care Provider] - 1-2 days
[2017-08-21] MEDS ORDERED: diphenhydrAMINE 50 MG/ML 1 ML VIAL IVP STA (15:42)
[2017-08-21] MEDS ORDERED: METOCLOPRAMIDE 5 MG/ML 2 ML VIAL IVP STA (15:42)
[2017-08-21] MEDS ORDERED: KETOROLAC 30 MG/ML 1 ML VIAL IVP STA (15:42)
[2017-08-21 16:52] VITALS: RESP 18
[2017-08-21 17:03] LABS: Appearance,Urine Clear (Clear); Bilirubin,Urine Negative (Negative); Blood,Urine Negative (Negative); Color,Urine Yellow; Glucose,Urine (UA) Negative (Negative); Ketones,Urine 1+ (Negative); Leukocyte Esterase,Urine Small (Negative); Mucus,Urine Occasional /hpf; Nitrite,Urine Negative (Negative); PH, Urine 7.5 (5.0-8.0); Protein,Urine Negative (Negative); RBC,Urine 2 /hpf (0-5); Specific Gravity,Urine 1.014 (1.001-1.035); Squamous Epithelial Cell,Urine 1 /hpf (0-4); Urobilinogen,Urine <2.0 mg/dL (<2.0); WBC,Urine 16 /hpf (0-5)
[2017-08-21 17:10] LABS: Amphetamine Screen,Urine Not Detected (NotDetected); Barbiturate Screen,Urine Not Detected (NotDetected); Benzodiazepines Screen,Urine Detected (NotDetected); Cocaine Screen,Urine Not Detected (NotDetected); Methadone Screen, Urine Not Detected (NotDetected); Opiate Screen,Urine Not Detected (NotDetected); Oxycodone Screen, Urine Not Detected (NotDetected); Phencyclidine Screen,Urine Not Detected (NotDetected); Tricyclic Antidepressant,Urine Not Detected (NotDetected); Urn Cannabinoid Scrn Detected (NotDetected)
[2017-08-21 17:22] VITALS: BP 121/70; PULSE 94
== END 2017-08-21 17:21 | disposition home or self-care (01) ==
LOC: EC 13:54
DX: F41.0 Panic disorder [episodic paroxysmal anxiety] (principal); R11.0 Nausea; F17.200 Nicotine dependence, unspecified, uncomplicated; Z79.3 Long term (current) use of hormonal contraceptives; Z79.899 Other long term (current) drug therapy
CPT/HCPCS: 96375 ×5; 96361 ×4; 96374 ×2; 99284 ×2; 99283; 36415; 93005; 80053; 83735; 84100; 85025; 81001; 81025; 80306; 87086; J2060; J1200; J2765; J2405; J1885

== ENCOUNTER 2017-09-25 23:36 | Emergency (ER) | payer OTHER ==
[2017-09-26] MEDS ORDERED: SODIUM CHLORIDE 0.9% 500 ML IV STA (01:11)
[2017-09-26] MEDS ORDERED: diphenhydrAMINE 50 MG/ML 1 ML VIAL IVP STA (01:11)
[2017-09-26] MEDS ORDERED: METOCLOPRAMIDE 5 MG/ML 2 ML VIAL IVP STA (01:11)
[2017-09-26] MEDS ORDERED: SODIUM CHLORIDE 0.9% 1,000 ML IV STA (01:11)
--- NOTE | 2017-09-26 01:22 | ED ---
Abdominal Pain HPI - General Chief Complaint: Abdominal Pain Stated Complaint: Vomiting-11 wks pg Time Seen by Provider: 09/26/17 00:47 Source: patient Mode of arrival: ambulatory Limitations: no limitations - History of Present Illness Initial Comments: 22-year-old female patient who is 11 weeks presents to the emergency department today for evaluation of vomiting, dizziness, and headache. Patient states that she has been experiencing increased vomiting for about the last month or so after stopping her anxiety medication. Patient states that she has been taking Zofran at home without relief of symptoms. Patient states that she is able to eat dry foods but whenever she tries to drink liquids she vomits. She denies any abdominal pain or cramping. Denies any abnormal vaginal bleeding or discharge. Denies any numbness or tingling. Denies any fevers or chills. Patient denies any recent rash, shortness breath, chest pain, abdominal pain, diarrhea, constipation, back pain, numbness, tingling, dizziness, weakness, hematuria, dysuria, urinary urgency, urinary frequency, visual changes, or any other complaints. - Related Data Previous Rx's Medication Instructions Recorded ALPRAZolam [Xanax] 1 mg PO Q8HR PRN #10 tab 08/21/17 Ondansetron [Zofran ODT] 8 mg PO Q8H PRN #30 tab.rapdis 08/21/17 Cephalexin [Keflex] 500 mg PO Q6H #28 cap 09/26/17 Metoclopramide [Reglan] 10 mg PO Q8H PRN #10 tab 09/26/17 Allergies Allergy/AdvReac Type Severity Reaction Status Date / Time No Known Allergies Allergy Verified 09/25/17 23:51 Review of Systems ROS Statement: Those systems with pertinent positive or pertinent negative responses have been documented in the HPI. ROS Other: All systems not noted in ROS Statement are negative. Past Medical History Past Medical History: No Reported History Additional Past Medical History / Comment(s): anxiety and nausea History of Any Multi-Drug Resistant Organisms: None Reported Past Surgical History: Adenoidectomy, Tonsillectomy Past Psychological History: Anxiety, Panic Disorder Smoking Status: Light tobacco smoker Past Alcohol Use History: None Reported Past Drug Use History: Marijuana General Exam Limitations: no limitations General appearance: alert, in no apparent distress Eye exam: Present: normal appearance, PERRL, EOMI. Absent: scleral icterus, conjunctival injection, periorbital swelling Respiratory exam: Present: normal lung sounds bilaterally. Absent: respiratory distress, wheezes, rales, rhonchi, stridor Cardiovascular Exam: Present: normal rhythm, tachycardia, normal heart sounds. Absent: systolic murmur, diastolic murmur, rubs, gallop, clicks GI/Abdominal exam: Present: soft, normal bowel sounds. Absent: distended, tenderness, guarding, rebound, rigid Back exam: Present: normal inspection. Absent: CVA tenderness (R), CVA tenderness (L) Neurological exam: Present: alert, oriented X3, CN II-XII intact Psychiatric exam: Present: normal affect, normal mood Skin exam: Present: warm, dry, intact, normal color. Absent: rash Course Vital Signs 09/25/17 09/26/17 23:46 03:49 Temperature 98.2 F 97.8 F Pulse Rate 119 H 68 Respiratory 20 18 Rate Blood Pressure 139/96 111/63 O2 Sat by Pulse 100 98 Oximetry Medical Decision Making - Medical Decision Making 22-year-old female patient presented to the emergency department today for evaluation of nausea and vomiting times one month. Patient states that she has been feeling lightheaded and dizzy today and feels like she may be getting dehydrated. Physical examination is unremarkable. Her abdomen is soft and nontender. heart tones were 150. Labs reviewed and are relatively unremarkable. Patient did have some bacteria in her urine, this has been sent for culture. Patient is feeling better upon reevaluation. She'll be discharged home with a prescription for Reglan. She is instructed to soak slowly on water throughout the day. She is instructed to follow with her OB/ EMERGENCY MEDICAL SERVICE COORDINATOR for recheck as possible. Return parameters discussed in detail. She verbalizes understanding and agrees with this plan. - Lab Data Result diagrams: 09/26/17 01:30 09/26/17 01:30 Lab Results 09/26/17 09/26/17 09/26/17 Range/Units 01:30 01:30 02:25 WBC 11.7 H (3.8-10.6) k/uL RBC 4.57 (3.80-5.40) m/uL Hgb 12.6 (11.4-16.0) gm/dL Hct 36.7 (34.0-46.0) % MCV 80.4 (80.0-100.0) fL MCH 27.5 (25.0-35.0) pg MCHC 34.2 (31.0-37.0) g/dL RDW 13.2 (11.5-15.5) % Plt Count 365 (150-450) k/uL Neutrophils % 70 % Lymphocytes % 23 % Monocytes % 5 % Eosinophils % 1 % Basophils % 0 % Neutrophils # 8.2 H (1.3-7.7) k/uL Lymphocytes # 2.7 (1.0-4.8) k/uL Monocytes # 0.6 (0-1.0) k/uL Eosinophils # 0.1 (0-0.7) k/uL Basophils # 0.0 (0-0.2) k/uL Sodium 138 (137-145) mmol/L Potassium 4.0 (3.5-5.1) mmol/L Chloride 101 (98-107) mmol/L Carbon Dioxide 24 (22-30) mmol/L Anion Gap 13 mmol/L BUN 8 (7-17) mg/dL Creatinine 0.40 L (0.52-1.04) mg/dL Est GFR (CKD-EPI)AfAm >90 (>60 ml/min/1.73 sqM) Est GFR (CKD-EPI)NonAf >90 (>60 ml/min/1.73 sqM) Glucose 90 (74-99) mg/dL Calcium 10.1 (8.4-10.2) mg/dL Total Bilirubin 0.3 (0.2-1.3) mg/dL AST 23 (14-36) U/L ALT 34 (9-52) U/L Alkaline Phosphatase 80 (38-126) U/L Total Protein 7.3 (6.3-8.2) g/dL Albumin 4.5 (3.5-5.0) g/dL Urine Color Yellow Urine Appearance Cloudy H (Clear) Urine pH 6.5 (5.0-8.0) Ur Specific [place] 1.016 (1.001-1.035) Urine Protein Negative (Negative) Urine Glucose (UA) Negative (Negative) Urine Ketones 1+ H (Negative) Urine Blood Negative (Negative) Urine Nitrite Negative (Negative) Urine Bilirubin Negative (Negative) Urine Urobilinogen <2.0 (<2.0) mg/dL Ur Leukocyte Esterase Trace H (Negative) Urine WBC 8 H (0-5) /hpf Ur Squamous Epith Cells 5 H (0-4) /hpf Amorphous Sediment Occasional H (None) /hpf Urine Bacteria Rare H (None) /hpf Urine Mucus Moderate H (None) /hpf Disposition Clinical Impression: Vomiting Disposition: HOME SELF-CARE Condition: Good Instructions: Acute Nausea and Vomiting (ED) Additional Instructions: Do small frequent sips of water. Take medications as directed. Follow-up with your SOCIOLOGY PROFESSOR for recheck as soon as possible. Take Benadryl if you're having difficulty sleeping. Return here immediately for any new, worsening, or concerning symptoms. Prescriptions: Cephalexin [Keflex] 500 mg PO Q6H #28 cap Metoclopramide [Reglan] 10 mg PO Q8H PRN #10 tab PRN Reason: Vomiting Is patient prescribed a controlled substance at d/c from ED?: No Referrals: Rory Miner DO [Primary Care Provider] - 1-2 days Time of Disposition: 03:20
[2017-09-26 01:54] LABS: Basophils % (A) 0 %; Eosinophils # (A) 0.1 k/uL (0-0.7); Eosinophils % (A) 1 %; HCT 36.7 % (34.0-46.0); HGB 12.6 gm/dL (11.4-16.0); Lymphocytes # (A) 2.7 k/uL (1.0-4.8); Lymphocytes % (A) 23 %; MCH 27.5 pg (25.0-35.0); MCHC 34.2 g/dL (31.0-37.0); MCV 80.4 fL (80.0-100.0); Mean Platelet Volume 6.2; Monocytes # (A) 0.6 k/uL (0-1.0); Monocytes % (A) 5 %; Neutrophils # (A) 8.2 k/uL (1.3-7.7); Neutrophils % (A) 70 %; Platelet Count 365 k/uL (150-450); RBC 4.57 m/uL (3.80-5.40); RDW 13.2 % (11.5-15.5); WBC 11.7 k/uL (3.8-10.6)
[2017-09-26 02:03] LABS: ALT 34 U/L (9-52); AST 23 U/L (14-36); Albumin 4.5 g/dL (3.5-5.0); Alkaline Phosphatase 80 U/L (38-126); Anion Gap 13 mmol/L; Blood Urea Nitrogen 8 mg/dL (7-17); Calcium 10.1 mg/dL (8.4-10.2); Carbon Dioxide 24 mmol/L (22-30); Chloride 101 mmol/L (98-107); Glucose 90 mg/dL (74-99); Sodium 138 mmol/L (137-145); Total Bilirubin 0.3 mg/dL (0.2-1.3); Total Protein 7.3 g/dL (6.3-8.2)
[2017-09-26 02:50] LABS: Amorphous Sediment,Urine Occasional /hpf; Appearance,Urine Cloudy (Clear); Bacteria,Urine Rare /hpf; Bilirubin,Urine Negative (Negative); Blood,Urine Negative (Negative); Color,Urine Yellow; Glucose,Urine (UA) Negative (Negative); Ketones,Urine 1+ (Negative); Leukocyte Esterase,Urine Trace (Negative); Mucus,Urine Moderate /hpf; Nitrite,Urine Negative (Negative); PH, Urine 6.5 (5.0-8.0); Protein,Urine Negative (Negative); Specific Gravity,Urine 1.016 (1.001-1.035); Squamous Epithelial Cell,Urine 5 /hpf (0-4); Urobilinogen,Urine <2.0 mg/dL (<2.0); WBC,Urine 8 /hpf (0-5)
[2017-09-26 03:50] VITALS: BP 111/63; PULSE 68; RESP 18; TEMP 97.8
== END 2017-09-26 03:35 | disposition home or self-care (01) ==
LOC: EC 23:36
DX: O21.0 Mild hyperemesis gravidarum (principal); O99.89 Other specified diseases and conditions complicating pregnancy, childbirth and the puerperium; R42 Dizziness and giddiness; R51 Headache; O99.331 Smoking (tobacco) complicating pregnancy, first trimester; F17.290 Nicotine dependence, other tobacco product, uncomplicated; Z3A.11 11 weeks gestation of pregnancy
CPT/HCPCS: 99284; 96374; 96375; 96361; 36415; 80053; 85025; 81001; 87086; J1200; J2765

== ENCOUNTER 2017-10-29 20:50 | Emergency (ER) | payer OTHER ==
[2017-10-29] MEDS ORDERED: SODIUM CHLORIDE 0.9% 1,000 ML IV STA (23:07)
--- NOTE | 2017-10-29 23:11 | ED ---
Syncope HPI - General Chief Complaint: Syncope Stated Complaint: syncope/vomiting-16wks preg Time Seen by Provider: 10/29/17 23:02 Source: patient, RN notes reviewed Mode of arrival: ambulatory Limitations: no limitations - History of Present Illness Initial Comments: This is a 22-year-old female who presents to the emergency department with chief complaint of syncope. Patient states that she is currently 16 weeks . She states that she has been very nauseous and has had multiple episodes of vomiting throughout . 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 Patient states that she is currently taking Zofran and Reglan. Patient states that at 7 :30 this evening she passed out and lost consciousness for approximately 5 minutes. She states that she knows this because she was exiting her boyfriend at the time and it was 5 minutes later when she came to. She denies any abdominal pain or vaginal bleeding. She does state that she feels nauseous at this time. Denies fevers or chills, chest pain or shortness of breath, dysuria or hematuria. - Related Data Home Medications Medication Instructions Recorded Confirmed Pnv No.95/Ferrous Fum/Folic AC 1 tab PO DAILY 10/29/17 10/29/17 [ Multivitamin Tablet] Previous Rx's Medication Instructions Recorded ALPRAZolam [Xanax] 1 mg PO Q8HR PRN #10 tab 08/21/17 Ondansetron [Zofran ODT] 8 mg PO Q8H PRN #30 tab.rapdis 08/21/17 Metoclopramide [Reglan] 10 mg PO Q8H PRN #10 tab 09/26/17 Nitrofurantoin Monohyd/M-Cryst 100 mg PO Q12HR #10 cap 10/30/17 [Macrobid] Allergies Allergy/AdvReac Type Severity Reaction Status Date / Time No Known Allergies Allergy Verified 10/29/17 23:12 Review of Systems ROS Statement: Those systems with pertinent positive or pertinent negative responses have been documented in the HPI. ROS Other: All systems not noted in ROS Statement are negative. Past Medical History Past Medical History: No Reported History Additional Past Medical History / Comment(s): anxiety and nausea History of Any Multi-Drug Resistant Organisms: None Reported Past Surgical History: Adenoidectomy, Tonsillectomy Past Psychological History: Anxiety, Panic Disorder Smoking Status: Former smoker Past Alcohol Use History: None Reported Past Drug Use History: None Reported General Exam - General Exam Comments Initial Comments: General: Awake and alert, well-developed; in no apparent distress. Does not appear acutely ill. HEENT: Head atraumatic, normocephalic. Pupils are equal, round and reactive to light. Extraocular movements intact. Oropharynx moist without erythema or exudate. Neck: Supple. Normal ROM. Cardiovascular: Regular rate and rhythm. No murmurs, rubs or gallops. Chest symmetrical. Respiratory: Lungs clear to auscultation bilaterally. No wheezes, rales or rhonchi. Normal respiratory effort with no use of accessory muscles. Abdomen: Soft, non-tender, non-distended. No rigidity, rebound or guarding. Musculoskeletal: Normal ROM, no tenderness bilateral upper and lower extremities. Ambulating normally. Skin: [place], warm and dry without rashes or lesions. Neurological: Alert and oriented x3. CN II-XII grossly intact. Speech is fluent and answers are appropriate. No focal neuro deficits. Psychiatric: Normal mood and affect. No overt signs of depression or anxiety noted. Limitations: no limitations Course Vital Signs 10/29/17 10/29/17 10/29/17 20:58 23:26 23:27 Temperature 98.2 F 97.8 F Pulse Rate 109 H 103 H Pulse Rate [ 103 H Water Quality Assistant ] Respiratory 18 18 Rate Blood Pressure 148/91 147/80 O2 Sat by Pulse 100 100 Oximetry 10/30/17 00:20 Temperature 99.2 F Pulse Rate 101 H Pulse Rate [ Water Quality Assistant ] Respiratory 18 Rate Blood Pressure 118/66 O2 Sat by Pulse 99 Oximetry - Reevaluation(s) Reevaluation #1: At this time, patient is resting comfortably in bed. She does state that her symptoms have improved. Awaiting heart tones. 10/30/17 00:36 EKG Findings - EKG Comments: EKG Findings:: 21:28:00. Sinus tachycardia. Ventricular rate 10 3 bpm, NH interval 122, QRS duration 80, QT/QTC 352/461. Medical Decision Making - Medical Decision Making This is a 22-year-old female, currently 16 weeks , who presents to the emergency department with chief complaint of syncope. Patient states that earlier today she passed out for 5 minutes. She states that she has had nausea and vomiting and feels as if she is dehydrated. Given a liter bolus and antiemetics while in the emergency department. CBC did reveal a slightly elevated white blood cell count of 13.1 with left shift at 9.5. CMP showed mildly elevated transaminases. UA showed evidence for many bacteria. Patient has had tachycardia while in the emergency department. EKG revealed sinus tachycardia. When brought to patient's attention, she states that she is feeling anxious and does have a history of anxiety. Patient denies any symptoms , however she will be treated for asymptomatic bacteriuria with Macrobid as she was treated one month ago with Keflex. heart tones were obtained and were within normal range at 138-145. Patient is in no acute distress and will be discharged home at this time. - Lab Data Result diagrams: 10/29/17 23:25 10/29/17 23:25 Lab Results 10/29/17 10/29/17 10/29/17 Range/Units 23:17 23:25 23:25 WBC 13.7 H (3.8-10.6) k/uL RBC 4.26 (3.80-5.40) m/uL Hgb 11.8 (11.4-16.0) gm/dL Hct 35.3 (34.0-46.0) % MCV 83.0 (80.0-100.0) fL MCH 27.7 (25.0-35.0) pg MCHC 33.4 (31.0-37.0) g/dL RDW 13.7 (11.5-15.5) % Plt Count 385 (150-450) k/uL Neutrophils % 69 % Lymphocytes % 22 % Monocytes % 5 % Eosinophils % 2 % Basophils % 0 % Neutrophils # 9.5 H (1.3-7.7) k/uL Lymphocytes # 3.1 (1.0-4.8) k/uL Monocytes # 0.7 (0-1.0) k/uL Eosinophils # 0.3 (0-0.7) k/uL Basophils # 0.0 (0-0.2) k/uL Sodium 137 (137-145) mmol/L Potassium 4.1 (3.5-5.1) mmol/L Chloride 105 (98-107) mmol/L Carbon Dioxide 22 (22-30) mmol/L Anion Gap 10 mmol/L BUN 8 (7-17) mg/dL Creatinine 0.40 L (0.52-1.04) mg/dL Est GFR (CKD-EPI)AfAm >90 (>60 ml/min/1.73 sqM) Est GFR (CKD-EPI)NonAf >90 (>60 ml/min/1.73 sqM) Glucose 76 (74-99) mg/dL Calcium 9.8 (8.4-10.2) mg/dL Total Bilirubin 0.1 L (0.2-1.3) mg/dL AST 45 H (14-36) U/L ALT 56 H (9-52) U/L Alkaline Phosphatase 100 (38-126) U/L Total Protein 7.2 (6.3-8.2) g/dL Albumin 4.3 (3.5-5.0) g/dL Urine Color Light Yellow Urine Appearance Cloudy H (Clear) Urine pH 7.0 (5.0-8.0) Ur Specific [place] 1.011 (1.001-1.035) Urine Protein Negative (Negative) Urine Glucose (UA) Negative (Negative) Urine Ketones Negative (Negative) Urine Blood Negative (Negative) Urine Nitrite Negative (Negative) Urine Bilirubin Negative (Negative) Urine Urobilinogen <2.0 (<2.0) mg/dL Ur Leukocyte Esterase Negative (Negative) Urine RBC 1 (0-5) /hpf Urine WBC 2 (0-5) /hpf Ur Squamous Epith Cells 5 H (0-4) /hpf Amorphous Sediment Occasional H (None) /hpf Urine Bacteria Many H (None) /hpf Urine Mucus Rare H (None) /hpf Disposition Clinical Impression: Syncope, Asymptomatic bacteriuria during Disposition: HOME SELF-CARE Condition: Good Instructions: Syncope (ED) Additional Instructions: Please take medications as prescribed. Please follow up with primary care provider within 1-2 days. Return to emergency department if symptoms should worsen or any concerns arise. Prescriptions: Nitrofurantoin Monohyd/M-Cryst [Macrobid] 100 mg PO Q12HR #10 cap Is patient prescribed a controlled substance at d/c from ED?: No Referrals: Rory Miner DO [Primary Care Provider] - 1-2 days Time of Disposition: 01:40
[2017-10-29 23:39] LABS: Basophils % (A) 0 %; Eosinophils # (A) 0.3 k/uL (0-0.7); Eosinophils % (A) 2 %; HCT 35.3 % (34.0-46.0); HGB 11.8 gm/dL (11.4-16.0); Lymphocytes # (A) 3.1 k/uL (1.0-4.8); Lymphocytes % (A) 22 %; MCH 27.7 pg (25.0-35.0); MCHC 33.4 g/dL (31.0-37.0); Mean Platelet Volume 6.1; Monocytes # (A) 0.7 k/uL (0-1.0); Monocytes % (A) 5 %; Neutrophils # (A) 9.5 k/uL (1.3-7.7); Neutrophils % (A) 69 %; Platelet Count 385 k/uL (150-450); RBC 4.26 m/uL (3.80-5.40); RDW 13.7 % (11.5-15.5); WBC 13.7 k/uL (3.8-10.6)
[2017-10-29 23:51] LABS: ALT 56 U/L (9-52); AST 45 U/L (14-36); Albumin 4.3 g/dL (3.5-5.0); Alkaline Phosphatase 100 U/L (38-126); Anion Gap 10 mmol/L; Blood Urea Nitrogen 8 mg/dL (7-17); Calcium 9.8 mg/dL (8.4-10.2); Carbon Dioxide 22 mmol/L (22-30); Chloride 105 mmol/L (98-107); Glucose 76 mg/dL (74-99); Potassium 4.1 mmol/L (3.5-5.1); Sodium 137 mmol/L (137-145); Total Bilirubin 0.1 mg/dL (0.2-1.3); Total Protein 7.2 g/dL (6.3-8.2)
[2017-10-30 00:11] LABS: Amorphous Sediment,Urine Occasional /hpf; Appearance,Urine Cloudy (Clear); Bacteria,Urine Many /hpf; Bilirubin,Urine Negative (Negative); Blood,Urine Negative (Negative); Color,Urine Light Yellow; Glucose,Urine (UA) Negative (Negative); Ketones,Urine Negative (Negative); Leukocyte Esterase,Urine Negative (Negative); Mucus,Urine Rare /hpf; Nitrite,Urine Negative (Negative); Protein,Urine Negative (Negative); RBC,Urine 1 /hpf (0-5); Specific Gravity,Urine 1.011 (1.001-1.035); Squamous Epithelial Cell,Urine 5 /hpf (0-4); Urobilinogen,Urine <2.0 mg/dL (<2.0); WBC,Urine 2 /hpf (0-5)
[2017-10-30] MEDS ORDERED: METOCLOPRAMIDE 5 MG/ML 2 ML VIAL IVP STA (01:26)
[2017-10-30] MEDS ORDERED: diphenhydrAMINE 50 MG/ML 1 ML VIAL IVP STA (01:26)
[2017-10-30] MEDS ORDERED: NITROFURANTOIN MONOHYD/M-CRYST 100 MG CAP PO STA (01:27)
[2017-10-30 02:04] VITALS: BP 126/92; RESP 16
[2017-10-30 02:26] VITALS: PULSE 105
[2017-10-30 02:32] VITALS: TEMP 98.7
== END 2017-10-30 02:31 | disposition home or self-care (01) ==
LOC: EC 20:50
DX: O99.89 Other specified diseases and conditions complicating pregnancy, childbirth and the puerperium (principal); R55 Syncope and collapse; R82.71 Bacteriuria; R00.0 Tachycardia, unspecified; R74.0 Nonspecific elevation of levels of transaminase and lactic acid dehydrogenase [LDH]; O21.9 Vomiting of pregnancy, unspecified; O99.112 Other diseases of the blood and blood-forming organs and certain disorders involving the immune mechanism complicating pregnancy, second trimester; D72.829 Elevated white blood cell count, unspecified; O99.342 Other mental disorders complicating pregnancy, second trimester; F41.9 Anxiety disorder, unspecified; Z3A.16 16 weeks gestation of pregnancy; Z87.891 Personal history of nicotine dependence
CPT/HCPCS: 99284; 96374; 96375; 96361; 36415; 93005; 80053; 85025; 81001; 87086; J1200; J2765

== ENCOUNTER 2017-11-20 16:16 | Emergency (ER) | payer OTHER ==
[2017-11-20] MEDS ORDERED: SODIUM CHLORIDE 0.9% 1,000 ML IV ONE (18:27)
--- NOTE | 2017-11-20 18:28 | ED ---
Anxiety HPI - General Chief Complaint: Anxiety Stated Complaint: panic attack, Time Seen by Provider: 11/20/17 18:00 Source: patient Mode of arrival: ambulatory - History of Present Illness Initial Comments: This is a 22-year-old female past medical history of severe anxiety who is currently [address] Veloz for obstetrics care who presents today for chief complaint of anxiety attack and dehydration. Patient states that she has chronic nausea and vomiting for many years and has been prescribed Reglan and Zofran 8 mg every 8 hours. Since patient became she's not been able to take her benzodiazepines for her anxiety, so she states that it has been worse in usual. She had an episode of vomiting a week ago, no episode since however she stated that this threw her into a state of anxiety. Patient states that she hasnt been feeling like drinking due to her anxiety. She called Dr. Veloz's office today, who told her to come to the emergency department for at least some fluids. Patient states that this feels exactly like all of her other panic attacks, including feeling of racing heart and impending doom. Patient denies any chest pain or shortness of breath, dizziness , syncope, visual changes, headache, abdominal pain, vaginal bleeding, lower extremity edema, suicidal ideations, depression or homicidal thoughts. - Related Data Home Medications: Home Medications Medication Instructions Recorded Confirmed Pnv No.95/Ferrous Fum/Folic AC 1 tab PO DAILY 10/29/17 10/29/17 [ Multivitamin Tablet] Previous Rx's Medication Instructions Recorded ALPRAZolam [Xanax] 1 mg PO Q8HR PRN #10 tab 08/21/17 Ondansetron [Zofran ODT] 8 mg PO Q8H PRN #30 tab.rapdis 08/21/17 Metoclopramide [Reglan] 10 mg PO Q8H PRN #10 tab 09/26/17 Nitrofurantoin Monohyd/M-Cryst 100 mg PO Q12HR #10 cap 10/30/17 [Macrobid] Allergies/Adverse Reactions: Allergies Allergy/AdvReac Type Severity Reaction Status Date / Time No Known Allergies Allergy Verified 11/20/17 16:52 Review of Systems ROS Statement: Those systems with pertinent positive or pertinent negative responses have been documented in the HPI. ROS Other: All systems not noted in ROS Statement are negative. Past Medical History Past Medical History: No Reported History Additional Past Medical History / Comment(s): anxiety and nausea History of Any Multi-Drug Resistant Organisms: None Reported Past Surgical History: Adenoidectomy, Tonsillectomy Past Psychological History: Anxiety, Panic Disorder Smoking Status: Former smoker Past Alcohol Use History: None Reported Past Drug Use History: None Reported General Exam - General Exam Comments Initial Comments: General: The patient is awake and alert, in no acute distress, and does not appear acutely ill. No diaphoresis. Eye: Pupils are equal, round and reactive to light, extra-ocular movements are intact. No nystagmus. There is normal conjunctiva bilaterally. No signs of icterus. Ears, nose, mouth and throat: There are moist mucous membranes and no oral lesions. Neck: The neck is supple, there is no tenderness or JVD. Cardiovascular: There is a regular rate and rhythm. No murmur, rub or gallop is appreciated. Respiratory: Lungs are clear to auscultation, respirations are non-labored, breath sounds are equal. No wheezes, stridor, rales, or rhonchi. Musculoskeletal: Normal ROM, no tenderness. Strength 5/5. Sensation intact. Pulses equal bilaterally 2+. No edema of the lower extremities bilaterally. Neurological: A&O x 3. CN II-XII intact, There are no obvious motor or sensory deficits. Coordination appears grossly intact. Speech is normal. Skin: Skin is warm and dry and no rashes or lesions are noted. Psychiatric: Cooperative, appropriate mood & affect, normal judgment. Limitations: no limitations Course Vital Signs 11/20/17 16:49 Temperature 98.6 F Pulse Rate 127 H Respiratory 18 Rate Blood Pressure 130/89 O2 Sat by Pulse 98 Oximetry Medical Decision Making - Medical Decision Making Pt prsents today for CC of anxiety and dehydration. Given pt states this feels exactly like her previous episodes of anxiety and she is a 22 year old with no PMH i have low suspicion for an ACS. UA, CBC and CMP obtained all returned WNL. UA appeared to be a dirty catch, with 9 squamous cell and 6 WBC. No ketones, leukocyesterase or nitrates. Physical examination pt appeared hydrated. Pt is requesting d/c stating that the fluids made her feel better and her anxiety is better knowing she is hydrated. Case discussed with Dr. Winchester at this time we feel pt is stable for d/c with OBGYN f/u. Pt agreed with plan and d/c in stable condition.Pt was educated to return to the ER if she experiencing any SOB or CP , or new or worsening symptoms. - Lab Data Result diagrams: 11/20/17 18:38 11/20/17 18:38 Lab Results 11/20/17 11/20/17 11/20/17 Range/Units 18:38 18:38 20:00 WBC 11.0 H (3.8-10.6) k/uL RBC 4.04 (3.80-5.40) m/uL Hgb 11.2 L (11.4-16.0) gm/dL Hct 33.5 L (34.0-46.0) % MCV 82.9 (80.0-100.0) fL MCH 27.8 (25.0-35.0) pg MCHC 33.5 (31.0-37.0) g/dL RDW 13.6 (11.5-15.5) % Plt Count 345 (150-450) k/uL Neutrophils % 82 % Lymphocytes % 12 % Monocytes % 4 % Eosinophils % 1 % Basophils % 0 % Neutrophils # 9.0 H (1.3-7.7) k/uL Lymphocytes # 1.4 (1.0-4.8) k/uL Monocytes # 0.4 (0-1.0) k/uL Eosinophils # 0.1 (0-0.7) k/uL Basophils # 0.0 (0-0.2) k/uL Sodium 136 L (137-145) mmol/L Potassium 4.3 (3.5-5.1) mmol/L Chloride 104 (98-107) mmol/L Carbon Dioxide 22 (22-30) mmol/L Anion Gap 10 mmol/L BUN 6 L (7-17) mg/dL Creatinine 0.40 L (0.52-1.04) mg/dL Est GFR (CKD-EPI)AfAm >90 (>60 ml/min/1.73 sqM) Est GFR (CKD-EPI)NonAf >90 (>60 ml/min/1.73 sqM) Glucose 88 (74-99) mg/dL Calcium 9.7 (8.4-10.2) mg/dL Total Bilirubin 0.2 (0.2-1.3) mg/dL AST 21 (14-36) U/L ALT 23 (9-52) U/L Alkaline Phosphatase 98 (38-126) U/L Total Protein 7.0 (6.3-8.2) g/dL Albumin 4.1 (3.5-5.0) g/dL Urine Color Yellow Urine Appearance Turbid H (Clear) Urine pH 7.5 (5.0-8.0) Ur Specific [place] 1.015 (1.001-1.035) Urine Protein Trace H (Negative) Urine Glucose (UA) Negative (Negative) Urine Ketones Negative (Negative) Urine Blood Negative (Negative) Urine Nitrite Negative (Negative) Urine Bilirubin Negative (Negative) Urine Urobilinogen <2.0 (<2.0) mg/dL Ur Leukocyte Esterase Negative (Negative) Urine WBC 6 H (0-5) /hpf Ur Squamous Epith Cells 9 H (0-4) /hpf Urine Bacteria Moderate H (None) /hpf Urine Mucus Moderate H (None) /hpf Disposition Clinical Impression: Anxiety Disposition: HOME SELF-CARE Condition: Good Instructions: Generalized Anxiety Disorder (ED) Additional Instructions: Please follow-up with OBGYN in the next 2 days of symptoms have not improved. Please return to emergency room if the symptoms increase or worsen or for any other concerns. Is patient prescribed a controlled substance at d/c from ED?: No Referrals: Rory Miner DO [Primary Care Provider] - 1-2 days Mary Veloz MD [STAFF PHYSICIAN] - 1-2 days Time of Disposition: 21:00
[2017-11-20 18:49] LABS: Basophils % (A) 0 %; Eosinophils # (A) 0.1 k/uL (0-0.7); Eosinophils % (A) 1 %; HCT 33.5 % (34.0-46.0); HGB 11.2 gm/dL (11.4-16.0); Lymphocytes # (A) 1.4 k/uL (1.0-4.8); Lymphocytes % (A) 12 %; MCH 27.8 pg (25.0-35.0); MCHC 33.5 g/dL (31.0-37.0); MCV 82.9 fL (80.0-100.0); Mean Platelet Volume 6.8; Monocytes # (A) 0.4 k/uL (0-1.0); Monocytes % (A) 4 %; Neutrophils % (A) 82 %; Platelet Count 345 k/uL (150-450); RBC 4.04 m/uL (3.80-5.40); RDW 13.6 % (11.5-15.5)
[2017-11-20 19:02] LABS: ALT 23 U/L (9-52); AST 21 U/L (14-36); Albumin 4.1 g/dL (3.5-5.0); Alkaline Phosphatase 98 U/L (38-126); Anion Gap 10 mmol/L; Blood Urea Nitrogen 6 mg/dL (7-17); Calcium 9.7 mg/dL (8.4-10.2); Carbon Dioxide 22 mmol/L (22-30); Chloride 104 mmol/L (98-107); Glucose 88 mg/dL (74-99); Potassium 4.3 mmol/L (3.5-5.1); Sodium 136 mmol/L (137-145); Total Bilirubin 0.2 mg/dL (0.2-1.3)
[2017-11-20 20:49] LABS: Appearance,Urine Turbid (Clear); Bacteria,Urine Moderate /hpf; Bilirubin,Urine Negative (Negative); Blood,Urine Negative (Negative); Color,Urine Yellow; Glucose,Urine (UA) Negative (Negative); Ketones,Urine Negative (Negative); Leukocyte Esterase,Urine Negative (Negative); Mucus,Urine Moderate /hpf; Nitrite,Urine Negative (Negative); PH, Urine 7.5 (5.0-8.0); Protein,Urine Trace (Negative); Specific Gravity,Urine 1.015 (1.001-1.035); Squamous Epithelial Cell,Urine 9 /hpf (0-4); Urobilinogen,Urine <2.0 mg/dL (<2.0); WBC,Urine 6 /hpf (0-5)
[2017-11-20 21:16] VITALS: BP 119/78; PULSE 102; RESP 16; TEMP 98.3
== END 2017-11-20 21:16 | disposition home or self-care (01) ==
LOC: EC 16:16
DX: O99.342 Other mental disorders complicating pregnancy, second trimester (principal); F41.9 Anxiety disorder, unspecified; O21.9 Vomiting of pregnancy, unspecified; Z3A.19 19 weeks gestation of pregnancy; Z87.891 Personal history of nicotine dependence
CPT/HCPCS: 36415; 80053; 81001; 85025; 96360; 99283

== ENCOUNTER → 2018-01-26 | Outpatient (CLI) | payer OTHER | END | disposition home or self-care (01) | LOC: LABWHC1 09:37 | PROVIDERS: ATTEND Obstetrics & Gynecology | DX: L29.9 Pruritus, unspecified (principal) | CPT/HCPCS: 36415 ==

== ENCOUNTER 2018-01-30 10:55 | Outpatient (CLI) | payer OTHER ==
[2018-01-30 11:34] VITALS: BP 158/106; PULSE 144; RESP 18; TEMP 98.3
[2018-01-30] MEDS ORDERED: MISOPROSTOL 200 MCG TAB VAGINAL STA (12:19)
[2018-01-30] MEDS ORDERED: MISOPROSTOL 200 MCG TAB PO STA (12:19)
--- NOTE | 2018-01-30 12:53 | US ---
EXAMINATION TYPE: US OB >= 14 wk fetus DATE OF EXAM: 01/30/2018 COMPARISON: None CLINICAL HISTORY: decreased movement, no fhts Exam was performed portable in [facility] TECHNIQUE: Transabdominal (TA) GESTATIONAL AGE / DATING Physician Established: (29 weeks/4 days) EDC: 04/13/2018 Dates by Current Scan: (27 weeks/6 days) EDC: 04/25/2018 SURVEY IUP: Single PLACENTA: Anterior PREVIA: No Previa ROM: 10.1 cm Normal CERVICAL LENGTH (transabdominal: norm > 3.0cm): 3.1 cm BIOMETRY PRESENTATION: Vertex BPD: 6.8 cm 27 weeks / 4 days HC: 26.2 cm 28 weeks / 4 days AC: 22.7 cm 27 weeks / 0 days FL: 5.3 cm 28 weeks / 2 days ESTIMATED WEIGHT IN GRAMS: 1108 grams ESTIMATED WEIGHT IN LBS/OZ: 2 lbs. 7 oz. WEIGHT PERCENTAGE BASED ON ESTABLISHED DATES: <3% HC/AC: 1.2 Normal FL/AC: 23.5 Normal HEART RATE: 0 bpm demise. Negative FHT's. M-Mode and color doppler performed. Hypoechoic lesion within placent a = 3.8 x 3.3 x 2.5 cm, possible placental barrett IMPRESSION: There is no heart rate detected compatible with demise
--- NOTE | 2018-02-15 07:28 | P.MSEPDOC ---
Presenting Problems - Arrival Data Date of Arrival on Unit: 01/30/18 Time of Arrival on Unit: 10:56 Mode of Transport: Portable - Complaint OB-Reason for Admission/Chief Complaint: Decreased Movement Comment: no movement x2 days Medical History - Information : 1 Para: 0 Term: 0 : 0 Abortions: Spontaneous or Elective: 0 Number of Living Children: 0 - Gestational Age Gestational Age by PREETI (wks/days): 29 Weeks and 4 Days Review of Systems - Review of Systems Constitutional: No problems Breast: No problems ENT: No problems Cardiovascular: No problems Respiratory: No problems Gastrointestinal: No problems Genitourinary: No problems Musculoskeletal: No problems Neurological: No problems Skin: No problems Vital Signs - Temperature Temperature: 98.3 F Temperature Source: Temporal Artery Scan - Pulse Right Pulse Rate: 144 Pulse Assessment Method: Pulse Oximetry - Respirations Respiratory Rate: 18 O2 Sat by Pulse Oximetry: 100 - Blood Pressure Right Arm Blood Pressure: 158/106 Blood Pressure Mean: 123 Blood Pressure Source: Automatic Cuff Medical Screen Scoring (Pre) - Assessment NST: Unable to detect FHT's = 10 - Total Score Total Score (Pre): 10 - Level of Risk Level of Risk: High (10+) Physician Notification (Pre) - Physician Notified Physician Notified Date: 01/30/18 Physician Notified Time: 11:20 Physician/Practitioner Notifed:: Dr Veloz - Notification Comment Comment: Dr Veloz called at office. Reported on no fhts, decreased movement x2 days. Reported on vitals- orders for u/s stat, and do not treat vitals at this time. call with results Medical Screen Scoring (Post) - Cervical Exam Dilation: 1-3 cm = 1 Membranes: Intact - Uterine Contractions Frequency: N/A Duration: N/A Intensity: N/A - Maternal Vital Signs Maternal Temperature: N/A Maternal Blood Pressure: N/A Signs of Preeclampsia: N/A Maternal Respirations: N/A - Pain Assessment Pain Scale Used: Numeric (1 - 10) Pain Intensity: 0 Pain Management Goal: 2 - Maternal Trauma Maternal Trauma: N/A - Assessment NST: Unable to detect FHT's = 10 - Total Score Total Score (Post): 11 - Post Treatment Level of Risk Post Treatment Level of Risk: High (10+) Physician Notification (Post) - Notification Comment Comment: Dr Veloz to unit to discuss plan of care with patient regarding IUFD, pt wishes to return tomorrow am for IOL so that she can be NPO after midnight and reduce chances of vomiting because she states she gets very bad panic attacks when she vomits. pt educated on instructions to continue home medications Disposition - Disposition OB Disposition: Discharge to home Discharge Date: 01/30/18 Discharge Time: 14:10 I agree with the RN Medical Screening Exam: Yes Risk & Benefit of care provided described in d/c instruction: Yes Diagnosis: DECREASED MOVEMENTS, THIRD TRIMESTER, FETUS 1
== END 2018-01-30 14:10 | disposition home or self-care (01) ==
LOC: FBPOP 10:55 → 4FBP 12:21 → UNDOADMIN 12:21 → FBPOP 14:10
PROVIDERS: ATTEND Obstetrics & Gynecology
DX: O36.8130 Decreased fetal movements, third trimester, not applicable or unspecified (principal); Z3A.29 29 weeks gestation of pregnancy
CPT/HCPCS: 76805; G0463; 99213

== ENCOUNTER 2018-01-30 15:12 | Outpatient (CLI) | payer OTHER ==
[2018-01-30 17:28] VITALS: BP 143/91; PULSE 97; RESP 18; TEMP 98.1
[2018-01-31] MEDS ORDERED: ROPIVACAINE 100 MG, fentaNYL (PF) 200 MCG in SODIUM CHLORIDE 0.9% 76 ML EPIDURAL ONE (14:37)
--- NOTE | 2018-02-15 07:31 | P.MSEPDOC ---
Presenting Problems - Arrival Data Date of Arrival on Unit: 01/30/18 Time of Arrival on Unit: 15:10 Mode of Transport: Ambulatory Vital Signs - Temperature Temperature: 98.1 F Temperature Source: Oral - Pulse Right Pulse Oximetery Pulse Rate: 97 Pulse Assessment Method: Pulse Oximetry - Respirations Respiratory Rate: 18 Oxygen Delivery Method: Room Air O2 Sat by Pulse Oximetry: 99 - Blood Pressure Right Arm Blood Pressure: 143/91 Blood Pressure Mean: 108 Blood Pressure Source: Automatic Cuff Medical Screen Scoring (Post) - Cervical Exam Dilation: Exam Deferred Effacement: Exam Deferred Membranes: Intact - Uterine Contractions Frequency: N/A Duration: N/A Intensity: N/A - Maternal Vital Signs Maternal Temperature: N/A Maternal Blood Pressure: N/A Signs of Preeclampsia: N/A Maternal Respirations: N/A - Pain Assessment Pain Scale Used: Numeric (1 - 10) Pain Intensity: 0 - Maternal Trauma Maternal Trauma: N/A - Assessment NST: Unable to detect FHT's = 10 - Total Score Total Score (Post): 10 - Post Treatment Level of Risk Post Treatment Level of Risk: High (10+) Physician Notification (Post) - Physician Notified Physician Notified Date: 01/30/18 Physician Notified Time: 16:40 Physician/Practitioner Notified:: Dr Veloz Spoke With: Dr Veloz - Notification Comment Comment: pt returned to TR for bleeding - no bleeding noted on pad, spotting was post cervical exam. pt reassured. following vitals WNL, pt discharged home per physician orders. Disposition - Disposition OB Disposition: Discharge to home Discharge Date: 01/30/18 Discharge Time: 17:10 I agree with the RN Medical Screening Exam: Yes Risk & Benefit of care provided described in d/c instruction: Yes Diagnosis: DECREASED MOVEMENTS, THIRD TRIMESTER, FETUS 1
== END 2018-01-30 17:10 | disposition home or self-care (01) ==
LOC: FBPOP 15:12
PROVIDERS: ATTEND Obstetrics & Gynecology
DX: O36.8131 Decreased fetal movements, third trimester, fetus 1 (principal); Z3A.00 Weeks of gestation of pregnancy not specified
CPT/HCPCS: 99213

== ENCOUNTER 2018-01-31 04:55 | Inpatient (IN) | payer OTHER ==
[2018-01-31 05:20] VITALS: BMI 20.2
[2018-01-31] MEDS: LACTATED RINGERS 1,000 ML IV SCH ×4 (05:22→22:14)
[2018-01-31] MEDS ORDERED: LORazepam 2 MG/ML INJ IV STA ×6 (05:48→19:21)
[2018-01-31 06:01] LABS: Basophils % (A) 0 %; Eosinophils # (A) 0.1 k/uL (0-0.7); Eosinophils % (A) 1 %; HCT 36.6 % (34.0-46.0); HGB 12.1 gm/dL (11.4-16.0); Lymphocytes # (A) 3.8 k/uL (1.0-4.8); Lymphocytes % (A) 36 %; MCH 26.2 pg (25.0-35.0); MCHC 32.9 g/dL (31.0-37.0); MCV 79.5 fL (80.0-100.0); Mean Platelet Volume 6.8; Monocytes # (A) 0.6 k/uL (0-1.0); Monocytes % (A) 5 %; Neutrophils # (A) 5.8 k/uL (1.3-7.7); Neutrophils % (A) 55 %; Platelet Count 332 k/uL (150-450); RBC 4.61 m/uL (3.80-5.40); RDW 13.2 % (11.5-15.5); WBC 10.5 k/uL (3.8-10.6)
[2018-01-31 06:10] LABS: INR 0.9 (<1.2); Partial Thromboplastin Time 23.4 sec (22.0-30.0); Prothrombin Time 9.3 sec (9.0-12.0)
[2018-01-31 06:16] LABS: Uric Acid 5.2 mg/dL (3.7-7.4)
[2018-01-31 06:30] LABS: Amphetamine Screen,Urine Not Detected (NotDetected); Barbiturate Screen,Urine Not Detected (NotDetected); Benzodiazepines Screen,Urine Not Detected (NotDetected); Cocaine Screen,Urine Not Detected (NotDetected); Methadone Screen, Urine Not Detected (NotDetected); Opiate Screen,Urine Not Detected (NotDetected); Oxycodone Screen, Urine Not Detected (NotDetected); Phencyclidine Screen,Urine Not Detected (NotDetected); Tricyclic Antidepressant,Urine Not Detected (NotDetected); Urn Cannabinoid Scrn Not Detected (NotDetected)
[2018-01-31] MEDS: MISOPROSTOL 200 MCG TAB VAGINAL SCH ×4 (07:07→21:57)
--- NOTE | 2018-01-31 07:46 | P.HPOB ---
History of Present Illness H&P Date: 01/31/18 Chief Complaint: Intrauterine demise This is a 22-year-old white female 1 para 0 EDC 04/04/1918 29-5/7 weeks ' gestation. Patient presented to triage yesterday with the complaint of no movement for 48 hours. On evaluation she was noted to have an intrauterine demise, vertex presentation. Offer was made for induction at that time but patient was concerned regarding her nothing by mouth status, not wishing to have emesis. She was therefore sent home and presents this morning for induction having been nothing by mouth after midnight. She denies complaints with the exception of vaginal pressure. She did have vaginal bleeding 1 after her pelvic exam yesterday. Past medical history significant for chronic nausea, anxiety. Past surgical history tonsillectomy. Current medications Zofran 8 mg tablets every 8 hours when necessary, Reglan 10 mg tablets once daily, vitamin daily. ALLERGIES none known. Family history significant for esophageal cancer, hypertension, stomach cancer and heart failure. Social history patient is a previous marijuana smoker, she denies tobacco use, she denies alcohol or drug use. history is significant for one hour Glucola 128, GC and chlamydia cultures negative, HIV hepatitis B surface antigen and urine culture negative. Rubella status immune. Blood type B positive, antibody screen negative. On exam this is an anxious young female, she is 5 foot 3 inches, 126 pounds, blood pressure 152/100 on admission with a pulse of 114, blood pressure now 120s over 70s. HEENT examination is negative. Chest is clear. Cardiac exam reveals no murmur click or rub. Abdomen is soft and nontender, 28 week size. Extremities are negative for edema. Cervix is 1 cm dilated, soft, anterior, 1-1 /2 cm long. Cytotec 400 MCG's is placed intravaginally. Impression: 29-5/7 weeks intrauterine demise. Here for Cytotec induction of labor. Plan: Extensive blood work has been ordered along with urine drug screen. We will consult our ham rolling machine operator for spiritual support as well. Patient is wishing to view the and hold her after delivery. Placental cultures will be sent and autopsy to be considered. Close maternal surveillance. Ativan has been given 1 mg IV and may be repeated as needed for anxiety. Anticipate vaginal delivery. Review of Systems Negative except as in HPI Constitutional: Reports as per HPI Past Medical History Past Medical History: No Reported History Additional Past Medical History / Comment(s): anxiety and nausea History of Any Multi-Drug Resistant Organisms: None Reported Past Surgical History: Adenoidectomy, Tonsillectomy Past Anesthesia/Blood Transfusion Reactions: Postoperative Nausea & Vomiting ( PONV) Past Psychological History: Anxiety, Panic Disorder Smoking Status: Never smoker Past Alcohol Use History: None Reported Past Drug Use History: Marijuana Additional Drug Use History / Comment(s): Pt states not using in months - Past Family History Father Family Medical History: Hypertension Medications and Allergies Home Medications Medication Instructions Recorded Confirmed Type ALPRAZolam [Xanax] 1 mg PO Q8HR PRN #10 tab 08/21/17 01/30/18 Rx Ondansetron [Zofran ODT] 8 mg PO Q8H PRN #30 tab.rapdis 08/21/17 01/31/18 Rx Metoclopramide [Reglan] 10 mg PO Q8H PRN #10 tab 09/26/17 01/31/18 Rx Pnv No.95/Ferrous Fum/Folic AC 1 tab PO DAILY 10/29/17 01/31/18 History [ Multivitamin Tablet] methylPREDNISolone [Medrol Dose 4 mg PO DIRECTED 01/30/18 01/31/18 History Pack] Allergies Allergy/AdvReac Type Severity Reaction Status Date / Time No Known Allergies Allergy Verified 01/30/18 16:27 Exam Vital Signs Temp Pulse Resp BP Pulse Ox 01/31/18 05:13 96.8 F L 114 H 16 152/100 99 Intake and Output 01/30/18 01/31/18 01/31/18 22:59 06:59 14:59 Other: # Voids 1 Weight 57.153 kg See dictation under HPI please Results Result Diagrams: 01/31/18 05:23 Abnormal Lab Results - Last 24 Hours (Table) 01/31/18 01/31/18 Range/Units 05:23 05:43 MCV 79.5 L (80.0-100.0) fL Fibrinogen 560 H (200-500) mg/dL Assessment and Plan Assessment: 29-5/7 weeks intrauterine , demise Plan: For Cytotec induction per hospital protocol. Please see dictation. Close maternal surveillance. Spiritual support provided. Time with Patient: Greater than 30
[2018-01-31] MEDS: ONDANSETRON 4 MG/2 ML VIAL IVP PRN ×3 (09:09→21:48)
[2018-01-31 11:16] LABS: Cardiolipin Ab IgG Interp NEGATIVE (NEGATIVE); Cardiolipin Ab IgM Interp NEGATIVE (NEGATIVE); Cardiolipin IgA Antibody <0.5 U/mL; Cardiolipin IgM Antibody 1.2 U/mL
[2018-01-31] MEDS ORDERED: ROPIVACAINE 5MG/ML 20ML VIAL ONE (14:05)
[2018-01-31] MEDS ORDERED: fentaNYL (PF) 50 MCG/ML 5 ML AMP ONE (14:05)
[2018-01-31] MEDS ORDERED: SODIUM CHLORIDE 0.9% 100 ML BAG ONE (14:05)
[2018-01-31] MEDS: METOCLOPRAMIDE 5 MG/ML 2 ML VIAL IVP SCH (17:34)
[2018-01-31] MEDS ORDERED: OXYTOCIN 20 UNITS/1000 ML NS 1,000 ML IV SCH (19:44)
[2018-01-31] MEDS ORDERED: HYDROCORTISONE 2.5% RECTAL CREAM 30 GM TUBE RECTAL PRN (20:10)
[2018-01-31] MEDS ORDERED: IBUPROFEN 600 MG TAB PO PRN (20:10)
[2018-01-31] MEDS ORDERED: ZOLPIDEM 5 MG TAB PO PRN (20:10)
[2018-01-31] MEDS ORDERED: WITCH HAZEL 1 EACH MED..PAD TOPICAL PRN (20:10)
[2018-01-31] MEDS ORDERED: LANOLIN CREAM 5 GM TUBE TOPICAL PRN (20:10)
[2018-01-31] MEDS ORDERED: diphenhydrAMINE 25 MG CAP PO PRN (20:10)
[2018-01-31] MEDS ORDERED: ACETAMINOPHEN TAB 325 MG TAB PO PRN (20:10)
[2018-01-31] MEDS ORDERED: BENZOCAINE/MENTHOL SPRAY 1 GM/SPRAY AEROSOL TOPICAL PRN (20:10)
[2018-01-31] MEDS ORDERED: diphenhydrAMINE 50 MG/ML 1 ML VIAL IVP PRN ×2 (20:10)
[2018-01-31] MEDS ORDERED: SIMETHICONE 80 MG CHEWABLE PO PRN (20:10)
[2018-01-31] MEDS ORDERED: diphenhydrAMINE 50 MG CAP PO PRN (20:10)
--- NOTE | 2018-01-31 20:10 | P.PROBDLV ---
Vaginal Delivery Note - . Vaginal Delivery Note: This is a 22-year-old white female 1 para 0 EDC 04/04/1918 29-5/7 weeks ' gestation. Patient presented yesterday with decreased movement for 2 days. Sonogram revealed intrauterine demise. Patient went home for rest and so that she could re-present with nothing by mouth status. was essentially unremarkable with the exception of late presentation, history of Xanax and marijuana use earlier in the . Blood type is B+, rubella status immune. Please see dictated history and physical for details. Cytotec was given 400 MCG's intravaginally 3 doses, at 7 AM, 11 PM, and 3 PM. She became uncomfortable and epidural was placed per her request. Artificial amniorrhexis revealed meconium-stained fluid at approximately 1643 hours. Ativan was given per her request 3 times during the course of labor. Patient had an uncontrollable urge to push. Perineal body was prepped and draped in the usual sterile fashion. She was judged to be completely dilated at 1940 hrs., vertex presentation. With maternal expulsive effort the stillborn fetus was delivered at 1942 hrs. The umbilical cord appeared edematous, it was clamped and ligated. It was noted to have 3 vessels. With good uterine expulsive efforts again and uterine massage the placenta was delivered spontaneously at 1944 hrs. It was inspected and noted to be meconium- stained, but otherwise intact. Aerobic and anaerobic cultures were done on both the maternal and sides. Inspection now of the cervix, vagina, and periurethral areas revealed no lacerations. No suture material was deemed necessary. Total estimated blood loss 100 mL's. scores 0 and 0 at one and 5 minutes respectively. Heart rate 0. No nuchal cord noted. Weight of infant is pending at time of this dictation. The patient and her family are contemplating autopsy and this will be discussed further. Close maternal surveillance at this time and continued emotional and spiritual support.
[2018-01-31] MEDS ORDERED: ACETAMINOPHEN IV (For NPO) 1,000 MG in EMPTY BAG 1 BAG IVPB STA (20:22)
[2018-01-31] MEDS ORDERED: DIPHENOX-ATROP 2.5-0.025 MG 1 EACH TAB PO PRN (21:22)
[2018-01-31] MEDS: AMPICILLIN-SULBACTAM 3 GM in SODIUM CHLORIDE 0.9% 100 ML IVPB SCH (22:15)
[2018-01-31 22:39] LABS: Basophils % (A) 0 %; Eosinophils % (A) 0 %; HCT 29.4 % (34.0-46.0); Hypochromasia Slight; Lymphocytes # (A) 2.6 k/uL (1.0-4.8); Lymphocytes % (A) 16 %; MCH 26.1 pg (25.0-35.0); MCHC 32.7 g/dL (31.0-37.0); MCV 79.8 fL (80.0-100.0); Mean Platelet Volume 6.8; Monocytes # (A) 0.7 k/uL (0-1.0); Monocytes % (A) 4 %; Neutrophils # (A) 13.1 k/uL (1.3-7.7); Neutrophils % (A) 79 %; Platelet Count 273 k/uL (150-450); RBC 3.68 m/uL (3.80-5.40); RDW 13.1 % (11.5-15.5); WBC 16.6 k/uL (3.8-10.6)
[2018-01-31 22:41] LABS: HGB 9.6 gm/dL (11.4-16.0)
[2018-02-01] MEDS: METOCLOPRAMIDE 5 MG/ML 2 ML VIAL IVP SCH ×2 (00:20→06:58)
[2018-02-01] MEDS: ONDANSETRON 4 MG/2 ML VIAL IVP PRN (03:48)
[2018-02-01 03:54] VITALS: RESP 16
[2018-02-01 05:13] LABS: Herpes simplex IgG I Ab 6.36 (< or = 0.90); Herpes simplex IgG II Ab 0.09 (< or = 0.90); Toxoplasma Antibody (IgG) <3.0 IU/mL (<7.2)
[2018-02-01] MEDS: AMPICILLIN-SULBACTAM 3 GM in SODIUM CHLORIDE 0.9% 100 ML IVPB SCH (05:47)
[2018-02-01 07:11] LABS: Herpes simplex I and/or II IgM 1.92 INDEX (<=0.90); Toxoplasma Antibody (IgM) <3.0 AU/mL (<8.0)
[2018-02-01 07:59] LABS: Basophils % (A) 0 %; Eosinophils # (A) 0.1 k/uL (0-0.7); Eosinophils % (A) 1 %; HCT 29.6 % (34.0-46.0); HGB 9.8 gm/dL (11.4-16.0); Hypochromasia Slight; Lymphocytes # (A) 2.9 k/uL (1.0-4.8); Lymphocytes % (A) 28 %; MCH 26.2 pg (25.0-35.0); MCV 79.4 fL (80.0-100.0); Mean Platelet Volume 6.5; Monocytes # (A) 0.6 k/uL (0-1.0); Monocytes % (A) 5 %; Neutrophils # (A) 6.8 k/uL (1.3-7.7); Neutrophils % (A) 64 %; Platelet Count 241 k/uL (150-450); RBC 3.72 m/uL (3.80-5.40); WBC 10.6 k/uL (3.8-10.6)
[2018-02-01] MEDS ORDERED: SENNOSIDES-DOCUSATE SODIUM 1 EACH TAB PO SCH (08:00)
--- NOTE | 2018-02-01 08:13 | P.DS ---
Providers Date of admission: 01/31/18 04:55 Expected date of discharge: 02/01/18 Attending physician: Mary Veloz Primary care physician: Mary Veloz [facility] Course: This is a 22-year-old white female 1 para 0 EDC 04/13/2018 at 29-5/7 weeks' gestation. Patient presents to the hospital with decreased movement. Ultrasound revealed intrauterine demise. Patient's history is significant for anxiety, nausea and vomiting. Blood type B+, rubella status immune. Please see dictated history and physical for details. Patient was admitted and Cytotec induction was started. She received 400 MCG's of Cytotec intravaginally 3. She went on to deliver A stillborn female with scores of 0 and 0. Infant weighed 2 lbs. 9 oz. or 1180 g. There was a trivascular cord. Placental cultures were sent. Patient has declined the option for autopsy. Our route service representative has seen the patient for spiritual support. This morning from the physical perspective patient appears well for discharge. She however has a long-standing psychiatric history which is concerning. She denies homicidal or suicidal ideation this morning. I have consulted social media marketing specialist and will arrange outpatient follow-up prior to discharge home today. She will call me with any fevers shakes or chills, foul smelling or copious lochia, with the passage of large blood clots, or with indeed with any physical concerns. I have also asked her to call me if she should have suicidal or homicidal ideation which began at this time she denies. She does have good family support. Contraceptive options have been reviewed and we will discuss this further in the office. Morning CBC is pending. Patient Condition at Discharge: Fair Plan - Discharge Summary Discharge Rx Participant: No New Discharge Prescriptions: No Action ALPRAZolam [Xanax] 1 mg PO Q8HR PRN #10 tab PRN Reason: Anxiety Ondansetron [Zofran ODT] 8 mg PO Q8H PRN #30 tab.rapdis PRN Reason: Nausea And Vomiting Metoclopramide [Reglan] 10 mg PO Q8H PRN #10 tab PRN Reason: Vomiting Pnv No.95/Ferrous Fum/Folic AC [ Multivitamin Tablet] 1 tab PO DAILY methylPREDNISolone [Medrol Dose Pack] 4 mg PO DIRECTED Discharge Medication List ALPRAZolam [Xanax] 1 mg PO Q8HR PRN #10 tab 08/21/17 [Rx] Ondansetron [Zofran ODT] 8 mg PO Q8H PRN #30 tab.rapdis 08/21/17 [Rx] Metoclopramide [Reglan] 10 mg PO Q8H PRN #10 tab 09/26/17 [Rx] Pnv No.95/Ferrous Fum/Folic AC [ Multivitamin Tablet] 1 tab PO DAILY [History] methylPREDNISolone [Medrol Dose Pack] 4 mg PO DIRECTED 01/30/18 [History] Follow up Appointment(s)/Referral(s): Mary Veloz MD [Primary Care Provider] - 2 Weeks Discharge Disposition: HOME SELF-CARE
[2018-02-01 08:50] VITALS: BP 127/83; PULSE 100; TEMP 98
[2018-02-01 13:42] LABS: APTT 37 Sec(s) (<43); Dilute Russell Viper Venom 39 Sec(s) (<44)
== END 2018-02-01 10:30 | disposition home or self-care (01) | DRG 807 ==
LOC: 4FBP 04:55
PROVIDERS: ADMIT Obstetrics & Gynecology; ATTEND Obstetrics & Gynecology
PROC: 10E0XZZ Delivery of Products of Conception, External Approach (ICD-10-PCS; principal; 2018-01-31)
PROC: 3E033VJ Introduction of Other Hormone into Peripheral Vein, Percutaneous Approach (ICD-10-PCS; 2018-01-31)
PROC: 00HU33Z Insertion of Infusion Device into Spinal Canal, Percutaneous Approach (ICD-10-PCS; 2018-01-31)
PROC: 3E0R3BZ Introduction of Anesthetic Agent into Spinal Canal, Percutaneous Approach (ICD-10-PCS; 2018-01-31)
PROC: 10907ZC Drainage of Amniotic Fluid, Therapeutic from Products of Conception, Via Natural or Artificial Opening (ICD-10-PCS; 2018-01-31)
DX: O36.4XX0 Maternal care for intrauterine death, not applicable or unspecified (principal); Z37.1 Single stillbirth; O77.0 Labor and delivery complicated by meconium in amniotic fluid; O99.344 Other mental disorders complicating childbirth; Z3A.29 29 weeks gestation of pregnancy; F41.0 Panic disorder [episodic paroxysmal anxiety]; Z79.899 Other long term (current) drug therapy; Z80.0 Family history of malignant neoplasm of digestive organs; Z82.49 Family history of ischemic heart disease and other diseases of the circulatory system
CPT/HCPCS: 80306; 84443; 84450; 84460; 84550; 85025; 85384; 85610; 85613; 85730; 86147; 86644; 86645; 86694; 86695; 86696; 86747; 86762; 86777; 86778; 86850; 86900; 86901; 87070; 87075; 87077; 87186; 87205; 88233; 88262; 88305; 88307

== ENCOUNTER 2018-03-14 20:28 | Emergency (ER) | payer OTHER ==
[2018-03-14 20:56] VITALS: TEMP 98.1
--- NOTE | 2018-03-14 21:45 | ED ---
Headache HPI - General Chief Complaint: Headache Stated Complaint: headache, panic attack Time Seen by Provider: 03/14/18 21:07 Source: RN notes reviewed, old records reviewed Mode of arrival: ambulatory Limitations: no limitations - History of Present Illness Initial Comments: This is a 23-year-old female the ER for evaluation of panic attack, headaches, before seeing patient in room when evaluating, patient wanted to be discharged secondary to needing more medication originally was given, patient requesting pain medication Associated Symptoms: other (Anxiety) - Related Data Home Medications Medication Instructions Recorded Confirmed ALPRAZolam [Xanax] 0.5 mg PO DAILY PRN 03/14/18 03/14/18 Metoclopramide [Reglan] 2.5 mg PO Q8H PRN 03/14/18 03/14/18 Mirtazapine [Remeron] 22.5 mg PO HS 03/14/18 03/14/18 Ondansetron [Zofran ODT] 4 mg PO Q8H PRN 03/14/18 03/14/18 Allergies Allergy/AdvReac Type Severity Reaction Status Date / Time No Known Allergies Allergy Verified 03/14/18 21:08 Review of Systems ROS Statement: Those systems with pertinent positive or pertinent negative responses have been documented in the HPI. ROS Other: All systems not noted in ROS Statement are negative. Past Medical History Past Medical History: No Reported History Additional Past Medical History / Comment(s): anxiety and nausea, Still born at 7 months History of Any Multi-Drug Resistant Organisms: None Reported Past Surgical History: Adenoidectomy, Tonsillectomy Past Anesthesia/Blood Transfusion Reactions: Postoperative Nausea & Vomiting ( PONV) Past Psychological History: Anxiety, Panic Disorder Smoking Status: Never smoker Past Alcohol Use History: None Reported Past Drug Use History: Marijuana - Past Family History Father Family Medical History: Hypertension Course Vital Signs 03/14/18 03/14/18 20:51 22:29 Temperature 98.1 F Pulse Rate 132 H 105 H Respiratory 30 H 18 Rate Blood Pressure 133/78 121/87 O2 Sat by Pulse 99 99 Oximetry Medical Decision Making - Medical Decision Making 23 female the ER for panic attack and migraine headache, patient requesting pain medication, patient refusing further evaluation and treatment, is leaving AGAINST MEDICAL ADVICE Disposition Clinical Impression: Headache, Acute anxiety Disposition: Left Against Medical Advice Condition: Undetermined Instructions: Acute Headache (ED) Is patient prescribed a controlled substance at d/c from ED?: No Referrals: Rory Miner DO [Primary Care Provider] - 1-2 days
[2018-03-14] MEDS ORDERED: ONDANSETRON ODT 4 MG TAB PO STA (21:48)
[2018-03-14] MEDS ORDERED: LORazepam 1 MG TAB PO STA (21:48)
[2018-03-14] MEDS ORDERED: LORazepam 2 MG/ML INJ IM STA (22:06)
[2018-03-14 22:30] VITALS: BP 121/87; PULSE 105; RESP 18
--- NOTE | 2018-03-25 00:38 | CDI ---
Dear Jose Dowling DO: Please do addendum Physical Examination. Thank you, Dragan Correa, Broadcast News Producer. If you have any questions, please contact Lawn C[facility]aker at [phone]. [facility]
== END 2018-03-14 23:19 | disposition left against medical advice (07) ==
LOC: EC 20:28
DX: F41.0 Panic disorder [episodic paroxysmal anxiety] (principal); R51 Headache; Z79.899 Other long term (current) drug therapy
CPT/HCPCS: 99284; 96372; J2060

== ENCOUNTER 2018-03-23 17:41 | Emergency (ER) | payer OTHER ==
[2018-03-23] MEDS ORDERED: SODIUM CHLORIDE 0.9% 1,000 ML IV STA (18:26)
[2018-03-23] MEDS ORDERED: PROMETHAZINE INJ 25 MG in SODIUM CHLORIDE 0.9% 50 ML IVPB STA (18:26)
[2018-03-23] MEDS ORDERED: LORazepam 2 MG/ML INJ IV STA (18:26)
[2018-03-23 19:13] LABS: Appearance,Urine Cloudy (Clear); Bilirubin,Urine Negative (Negative); Blood,Urine Moderate (Negative); Color,Urine Yellow; Glucose,Urine (UA) Negative (Negative); Ketones,Urine Negative (Negative); Leukocyte Esterase,Urine Negative (Negative); Mucus,Urine Few /hpf; Nitrite,Urine Negative (Negative); PH, Urine 7.5 (5.0-8.0); Protein,Urine Trace (Negative); RBC,Urine 26 /hpf (0-5); Specific Gravity,Urine 1.022 (1.001-1.035); Squamous Epithelial Cell,Urine 5 /hpf (0-4)
[2018-03-23 19:13] LABS: Basophils % (A) 0 %; Eosinophils # (A) 0.3 k/uL (0-0.7); Eosinophils % (A) 4 %; HCT 39.9 % (34.0-46.0); Lymphocytes # (A) 3.4 k/uL (1.0-4.8); Lymphocytes % (A) 45 %; MCH 24.5 pg (25.0-35.0); MCHC 32.1 g/dL (31.0-37.0); MCV 76.5 fL (80.0-100.0); Microcytosis Slight; Monocytes # (A) 0.3 k/uL (0-1.0); Monocytes % (A) 4 %; Neutrophils # (A) 3.4 k/uL (1.3-7.7); Neutrophils % (A) 45 %; Platelet Count 409 k/uL (150-450); RBC 5.21 m/uL (3.80-5.40); RDW 15.5 % (11.5-15.5); WBC 7.6 k/uL (3.8-10.6)
--- NOTE | 2018-03-23 19:13 | ED ---
General Adult HPI - General Chief complaint: Anxiety Stated complaint: Anxiety Time Seen by Provider: 03/23/18 18:10 Source: patient, RN notes reviewed Mode of arrival: ambulatory Limitations: no limitations - History of Present Illness Initial comments: Patient's a 23-year-old female presenting to the emergency room today with chief complaint of increased anxiety. She states to history of anxiety states she uses Xanax. She admits that she was seen yesterday at [facility] for this as well. She states that because of the nausea feeling that she gets with her anxiety she's not been eating. She states that she's only had a small amount of water recently. She states they give her shot of anxiety medicine and Center home. She is also on antibiotics because she was bitten on the right index finger by a cat 3 days ago. She states she believes that the antibiotics are also making her feel nauseated. She does admit to increased anxiety as she states that she had a rough year last year. She states she lost both her grandfather and her father suddenly. She states that she had a still born at 29 weeks. Patient admits that she uses Zofran also Compazine at home for her nausea and has been trying this with little relief recently. She states she was on promethazine in the past and thinks that this may help better. Patient states she was seen a counselor for her anxiety but stopped going there because it was 2 hours away. She is trying to follow up with someone else. She's been seen her family doctor who has been treating her for the symptoms. Patient denies any homicidal or suicidal thoughts or plans. She denies any other complaints or symptoms at this time. - Related Data Home Medications Medication Instructions Recorded Confirmed ALPRAZolam [Xanax] 0.5 mg PO DAILY PRN 03/14/18 03/23/18 Metoclopramide [Reglan] 10 mg PO Q8H PRN 03/14/18 03/23/18 Mirtazapine [Remeron] 45 mg PO HS 03/14/18 03/23/18 Ondansetron [Zofran ODT] 8 mg PO Q8H 03/14/18 03/23/18 Amoxic-Pot Clav 875-125Mg 1 tab PO BID 03/23/18 03/23/18 [Augmentin 875-125] Previous Rx's Medication Instructions Recorded Promethazine [Phenergan] 25 mg PO Q6HR #16 tablet 03/23/18 Allergies Allergy/AdvReac Type Severity Reaction Status Date / Time No Known Allergies Allergy Verified 03/23/18 18:12 Review of Systems ROS Statement: Those systems with pertinent positive or pertinent negative responses have been documented in the HPI. ROS Other: All systems not noted in ROS Statement are negative. Past Medical History Past Medical History: No Reported History Additional Past Medical History / Comment(s): anxiety and nausea, Still born at 7 months History of Any Multi-Drug Resistant Organisms: None Reported Past Surgical History: Adenoidectomy, Tonsillectomy Past Anesthesia/Blood Transfusion Reactions: Postoperative Nausea & Vomiting ( PONV) Past Psychological History: Anxiety, Panic Disorder Smoking Status: Never smoker Past Alcohol Use History: None Reported Past Drug Use History: Marijuana - Past Family History Father Family Medical History: Hypertension General Exam - General Exam Comments Initial Comments: General: The patient is awake and alert, in no distress, and does not appear acutely ill. Eye: Pupils are equal, round and reactive to light, extra-ocular movements are intact. No nystagmus. There is normal conjunctiva bilaterally. No signs of icterus. Ears, nose, mouth and throat: There are moist mucous membranes and no oral lesions. Neck: The neck is supple, there is no tenderness or JVD. Cardiovascular: There is a regular rate and rhythm. No murmur, rub or gallop is appreciated. Respiratory: Lungs are clear to auscultation, respirations are non-labored, breath sounds are equal. No wheezes, stridor, rales, or rhonchi. Musculoskeletal: Normal ROM, no tenderness. Neurological: A&O x 3. CN II-XII intact, There are no obvious motor or sensory deficits. Coordination appears grossly intact. Speech is normal. Skin: Skin is warm and dry and no rashes or lesions are noted. Psychiatric: Cooperative, appropriate mood & affect, normal judgment. Limitations: no limitations Course Vital Signs 03/23/18 18:03 Temperature 98.5 F Pulse Rate 121 H Respiratory 18 Rate Blood Pressure 126/86 O2 Sat by Pulse 99 Oximetry Medical Decision Making - Medical Decision Making Patient reexamined at this time shows no signs of distress. Resting comfortably. Patient was seen by mental health. The recommendation patient can follow up outpatient. She denies any suicidal or homicidal thoughts or plans. Feeling better after IV fluids and nausea medication here and will be discharged home with a prescription for Phenergan. Advised following up with therapist. Advised return if symptoms increase or worsen. - Lab Data Result diagrams: 03/23/18 18:50 Lab Results 03/23/18 03/23/18 03/23/18 Range/Units 18:50 18:51 18:51 WBC 7.6 (3.8-10.6) k/uL RBC 5.21 (3.80-5.40) m/uL Hgb 12.8 D (11.4-16.0) gm/dL Hct 39.9 (34.0-46.0) % MCV 76.5 L (80.0-100.0) fL MCH 24.5 L (25.0-35.0) pg MCHC 32.1 (31.0-37.0) g/dL RDW 15.5 (11.5-15.5) % Plt Count 409 (150-450) k/uL Neutrophils % 45 % Lymphocytes % 45 % Monocytes % 4 % Eosinophils % 4 % Basophils % 0 % Neutrophils # 3.4 (1.3-7.7) k/uL Lymphocytes # 3.4 (1.0-4.8) k/uL Monocytes # 0.3 (0-1.0) k/uL Eosinophils # 0.3 (0-0.7) k/uL Basophils # 0.0 (0-0.2) k/uL Microcytosis Slight Urine Color Yellow Urine Appearance Cloudy H (Clear) Urine pH 7.5 (5.0-8.0) Ur Specific [place] 1.022 (1.001-1.035) Urine Protein Trace H (Negative) Urine Glucose (UA) Negative (Negative) Urine Ketones Negative (Negative) Urine Blood Moderate H (Negative) Urine Nitrite Negative (Negative) Urine Bilirubin Negative (Negative) Urine Urobilinogen 2.0 (<2.0) mg/dL Ur Leukocyte Esterase Negative (Negative) Urine RBC 26 H (0-5) /hpf Urine WBC 4 (0-5) /hpf Ur Squamous Epith Cells 5 H (0-4) /hpf Urine Mucus Few H (None) /hpf Urine HCG, Qual Not Detected (Not Detectd) Urine Opiates Screen Not Detected (NotDetected) Ur Oxycodone Screen Not Detected (NotDetected) Urine Methadone Screen Not Detected (NotDetected) Ur Propoxyphene Screen Not Detected (NotDetected) Ur Barbiturates Screen Not Detected (NotDetected) U Tricyclic Antidepress Not Detected (NotDetected) Ur Phencyclidine Scrn Not Detected (NotDetected) Ur Amphetamines Screen Not Detected (NotDetected) U Methamphetamines Scrn Not Detected (NotDetected) U Benzodiazepines Scrn Detected H (NotDetected) Urine Cocaine Screen Not Detected (NotDetected) U Marijuana (THC) Screen Detected H (NotDetected) Disposition Clinical Impression: Anxiety, Nausea Disposition: HOME SELF-CARE Condition: Good Instructions: Generalized Anxiety Disorder (ED) Additional Instructions: Please use medication as discussed. Please follow-up with family doctor in the next 2 days of symptoms have not improved. Please return to emergency room if the symptoms increase or worsen or for any other concerns. Prescriptions: Promethazine [Phenergan] 25 mg PO Q6HR #16 tablet Is patient prescribed a controlled substance at d/c from ED?: No Referrals: Rory Miner DO [Primary Care Provider] - 1-2 days Time of Disposition: 19:35
[2018-03-23 19:19] LABS: Amphetamine Screen,Urine Not Detected (NotDetected); Barbiturate Screen,Urine Not Detected (NotDetected); Benzodiazepines Screen,Urine Detected (NotDetected); Cocaine Screen,Urine Not Detected (NotDetected); Methadone Screen, Urine Not Detected (NotDetected); Opiate Screen,Urine Not Detected (NotDetected); Oxycodone Screen, Urine Not Detected (NotDetected); Phencyclidine Screen,Urine Not Detected (NotDetected); Tricyclic Antidepressant,Urine Not Detected (NotDetected); Urn Cannabinoid Scrn Detected (NotDetected)
[2018-03-23 19:19] LABS: HGB 12.8 gm/dL (11.4-16.0)
[2018-03-23 19:31] LABS: ALT 22 U/L (9-52); AST 35 U/L (14-36); Albumin 4.9 g/dL (3.5-5.0); Alkaline Phosphatase 97 U/L (38-126); Anion Gap 13 mmol/L; Blood Urea Nitrogen 10 mg/dL (7-17); Calcium 10.5 mg/dL (8.4-10.2); Carbon Dioxide 23 mmol/L (22-30); Chloride 108 mmol/L (98-107); Glucose 96 mg/dL (74-99); Sodium 144 mmol/L (137-145); Total Bilirubin 0.3 mg/dL (0.2-1.3); Total Protein 8.5 g/dL (6.3-8.2)
[2018-03-23 19:42] VITALS: BP 140/84; PULSE 88; RESP 16; TEMP 98.4
== END 2018-03-23 19:52 | disposition home or self-care (01) ==
LOC: EC 17:41
DX: F41.9 Anxiety disorder, unspecified (principal); R11.0 Nausea; Z79.899 Other long term (current) drug therapy
CPT/HCPCS: 36415; 80053; 85025; 81001; 81025; 80306; 99284; 96374; 96361; J2060; J2550

== ENCOUNTER 2019-04-19 22:21 | Emergency (ER) | payer OTHER ==
[2019-04-19] MEDS ORDERED: SODIUM CHLORIDE 0.9% 1,000 ML IV STA (23:28)
[2019-04-20 00:41] LABS: Appearance,Urine Clear (Clear); Bilirubin,Urine Negative (Negative); Blood,Urine Negative (Negative); Color,Urine Yellow; Glucose,Urine (UA) Negative (Negative); Ketones,Urine Negative (Negative); Leukocyte Esterase,Urine Negative (Negative); Nitrite,Urine Negative (Negative); PH, Urine 6.5 (5.0-8.0); Protein,Urine Negative (Negative); Specific Gravity,Urine 1.025 (1.001-1.035)
--- NOTE | 2019-04-20 00:43 | US ---
EXAMINATION TYPE: Transabdominal DATE OF EXAM: 04/20/2019 12:27 AM COMPARISON: NONE CLINICAL HISTORY: back pain. Back pain, pelvic pressure EXAM PERFORMED: Transabdominal (TA) EXAM MEASUREMENTS: GESTATIONAL AGE / DATING Physician Established: not yet established Dates by LMP: (13 weeks/0 days) EDC: 10/26/19 Dates by First Scan: No previous this is first scan Dates by Current Scan for: (14 weeks/0 days) EDC: 10/19/19 MATERNAL ANATOMY Uterus: 14.8 x 7.3 x 10.8cm Right Ovary: 2.9 x 1.8 x 2.1cm Left Ovary: 3.1 x 2.1 x 2.8cm Post CDS / Adnexa: appears wnl Presence of free fluid: no Presence of corpus luteal cyst: yes, cystic area right ovary = 1.4 x 1.7 x 1.3cm GESTATION / SURVEY CRL: 8.0cm (14 weeks/0 days) Yolk Sac (normal less than 6mm): not seen Heart Rate: 149 bpm Rhythm: Normal IUP: Viable IUP Date of LMP: 01/19/19 Beta HcG (if available): Not available at this time single viable IUP 14wks/0days with PREETI of 10/19/19. corpus luteum right ovary IMPRESSION: Ultrasound gestational age is 14 weeks. No complicating process.
[2019-04-20 00:44] LABS: Basophils % (A) 0 %; Eosinophils # (A) 0.3 k/uL (0-0.7); Eosinophils % (A) 3 %; HCT 32.8 % (34.0-46.0); HGB 11.1 gm/dL (11.4-16.0); Lymphocytes # (A) 2.7 k/uL (1.0-4.8); Lymphocytes % (A) 28 %; MCH 27.7 pg (25.0-35.0); MCHC 33.8 g/dL (31.0-37.0); Mean Platelet Volume 6.4; Monocytes # (A) 0.5 k/uL (0-1.0); Monocytes % (A) 5 %; Neutrophils # (A) 5.9 k/uL (1.3-7.7); Neutrophils % (A) 62 %; Platelet Count 338 k/uL (150-450); RBC 3.99 m/uL (3.80-5.40); RDW 13.2 % (11.5-15.5); WBC 9.5 k/uL (3.8-10.6)
[2019-04-20 00:55] LABS: ALT 16 U/L (4-34); AST 29 U/L (14-36); African American GFR (CKD) >90 (>60 ml/min/1.73 sqM); Albumin 4.1 g/dL (3.5-5.0); Alkaline Phosphatase 105 U/L (38-126); Amylase 43 U/L (30-110); Anion Gap 9 mmol/L; Blood Urea Nitrogen 9 mg/dL (7-17); Calcium 9.4 mg/dL (8.4-10.2); Carbon Dioxide 21 mmol/L (22-30); Chloride 106 mmol/L (98-107); Glucose 84 mg/dL (74-99); Non-African American GFR(CKD) >90 (>60 ml/min/1.73 sqM); Sodium 136 mmol/L (137-145); Total Bilirubin 0.2 mg/dL (0.2-1.3); Total Protein 7.2 g/dL (6.3-8.2)
--- NOTE | 2019-04-20 01:35 | ED ---
General Adult HPI - General Chief complaint: Back Pain/Injury Stated complaint: 13 wks , back pain Time Seen by Provider: 04/19/19 23:26 Source: patient, RN notes reviewed Mode of arrival: ambulatory Limitations: no limitations - History of Present Illness Initial comments: 24-year-old female with a past medical history of anxiety presents to the emergency department for a chief complaint of back pain. Patient states that she is a female currently 13 weeks . Patient states she miscarried at 30 weeks during her last so is very anxious about this . States that she has had hyperemesis gravidarum. Therefore she has not been to work. However when she returned today she started to have back pain. 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 Patient is concerned that this could be uterine cramping. She denies any vaginal bleeding. States she is very anxious and wanted ultrasound to make sure everything is okay. She denies any abdominal pain.Patient has no other complaints at this time including shortness of breath, chest pain, abdominal pain, nausea or vomiting, headache, or visual changes. - Related Data Home Medications Medication Instructions Recorded Confirmed ALPRAZolam [Xanax] 0.5 mg PO DAILY PRN 03/14/18 03/23/18 Metoclopramide [Reglan] 10 mg PO Q8H PRN 03/14/18 03/23/18 Mirtazapine [Remeron] 45 mg PO HS 03/14/18 03/23/18 Ondansetron [Zofran ODT] 8 mg PO Q8H 03/14/18 03/23/18 Amoxic-Pot Clav 875-125Mg 1 tab PO BID 03/23/18 03/23/18 [Augmentin 875-125] Previous Rx's Medication Instructions Recorded Promethazine [Phenergan] 25 mg PO Q6HR #16 tablet 03/23/18 Allergies Allergy/AdvReac Type Severity Reaction Status Date / Time No Known Allergies Allergy Verified 03/23/18 18:12 Review of Systems ROS Statement: Those systems with pertinent positive or pertinent negative responses have been documented in the HPI. ROS Other: All systems not noted in ROS Statement are negative. Past Medical History Past Medical History: No Reported History Additional Past Medical History / Comment(s): anxiety and nausea, Still born at 7 months History of Any Multi-Drug Resistant Organisms: None Reported Past Surgical History: Adenoidectomy, Tonsillectomy Past Anesthesia/Blood Transfusion Reactions: Postoperative Nausea & Vomiting (PONV) Past Psychological History: Anxiety, Panic Disorder Smoking Status: Never smoker Past Alcohol Use History: None Reported Past Drug Use History: None Reported - Past Family History Father Family Medical History: Hypertension General Exam Limitations: no limitations General appearance: alert, in no apparent distress Head exam: Present: atraumatic, normocephalic, normal inspection Eye exam: Present: normal appearance, PERRL, EOMI. Absent: scleral icterus, conjunctival injection, periorbital swelling ENT exam: Present: normal exam, mucous membranes moist Neck exam: Present: normal inspection, full ROM. Absent: tenderness, meningismus, lymphadenopathy Respiratory exam: Present: normal lung sounds bilaterally. Absent: respiratory distress, wheezes, rales, rhonchi, stridor Cardiovascular Exam: Present: regular rate, normal rhythm, normal heart sounds. Absent: systolic murmur, diastolic murmur, rubs, gallop, clicks GI/Abdominal exam: Present: soft, normal bowel sounds. Absent: distended, tenderness, guarding, rebound, rigid Neurological exam: Present: alert Psychiatric exam: Present: normal affect, normal mood Course Vital Signs 04/19/19 22:41 Temperature 98.4 F Pulse Rate 119 H Respiratory 18 Rate Blood Pressure 153/92 O2 Sat by Pulse 99 Oximetry Medical Decision Making - Medical Decision Making Patient initially tachycardic which is likely secondary to anxiety as she has tearful and upset at time of exam and vitals. Lab work was obtained which was unremarkable. Urinalysis is unremarkable. HCG Quant was not obtained as patient is out of the first trimester. ultrasound was performed which shows a single viable IUP at 14 weeks with heart rate of 149. No complicating process seen. Patient is feeling much better after receiving a normal ultrasound. Patient will be dismissed home. I offered to give her the next 2 days off work but she would prefer to return to work tomorrow. - Lab Data Result diagrams: 04/20/19 00:01 04/20/19 00:01 Lab Results 04/20/19 04/20/19 04/20/19 Range/Units 00:01 00:01 00:01 WBC 9.5 (3.8-10.6) k/uL RBC 3.99 (3.80-5.40) m/uL Hgb 11.1 L (11.4-16.0) gm/dL Hct 32.8 L (34.0-46.0) % MCV 82.0 (80.0-100.0) fL MCH 27.7 (25.0-35.0) pg MCHC 33.8 (31.0-37.0) g/dL RDW 13.2 (11.5-15.5) % Plt Count 338 (150-450) k/uL Neutrophils % 62 % Lymphocytes % 28 % Monocytes % 5 % Eosinophils % 3 % Basophils % 0 % Neutrophils # 5.9 (1.3-7.7) k/uL Lymphocytes # 2.7 (1.0-4.8) k/uL Monocytes # 0.5 (0-1.0) k/uL Eosinophils # 0.3 (0-0.7) k/uL Basophils # 0.0 (0-0.2) k/uL Sodium 136 L (137-145) mmol/L Potassium 4.0 (3.5-5.1) mmol/L Chloride 106 (98-107) mmol/L Carbon Dioxide 21 L (22-30) mmol/L Anion Gap 9 mmol/L BUN 9 (7-17) mg/dL Creatinine 0.39 L (0.52-1.04) mg/dL Est GFR (CKD-EPI)AfAm >90 (>60 ml/min/1.73 sqM) Est GFR (CKD-EPI)NonAf >90 (>60 ml/min/1.73 sqM) Glucose 84 (74-99) mg/dL Calcium 9.4 (8.4-10.2) mg/dL Total Bilirubin 0.2 (0.2-1.3) mg/dL AST 29 (14-36) U/L ALT 16 (4-34) U/L Alkaline Phosphatase 105 (38-126) U/L Total Protein 7.2 (6.3-8.2) g/dL Albumin 4.1 (3.5-5.0) g/dL Amylase 43 (30-110) U/L Lipase 82 (23-300) U/L Urine Color Urine Appearance (Clear) Urine pH (5.0-8.0) Ur Specific [place] (1.001-1.035) Urine Protein (Negative) Urine Glucose (UA) (Negative) Urine Ketones (Negative) Urine Blood (Negative) Urine Nitrite (Negative) Urine Bilirubin (Negative) Urine Urobilinogen (<2.0) mg/dL Ur Leukocyte Esterase (Negative) Urine HCG, Qual Detected (Not Detectd) 04/20/19 Range/Units 00:01 WBC (3.8-10.6) k/uL RBC (3.80-5.40) m/uL Hgb (11.4-16.0) gm/dL Hct (34.0-46.0) % MCV (80.0-100.0) fL MCH (25.0-35.0) pg MCHC (31.0-37.0) g/dL RDW (11.5-15.5) % Plt Count (150-450) k/uL Neutrophils % % Lymphocytes % % Monocytes % % Eosinophils % % Basophils % % Neutrophils # (1.3-7.7) k/uL Lymphocytes # (1.0-4.8) k/uL Monocytes # (0-1.0) k/uL Eosinophils # (0-0.7) k/uL Basophils # (0-0.2) k/uL Sodium (137-145) mmol/L Potassium (3.5-5.1) mmol/L Chloride (98-107) mmol/L Carbon Dioxide (22-30) mmol/L Anion Gap mmol/L BUN (7-17) mg/dL Creatinine (0.52-1.04) mg/dL Est GFR (CKD-EPI)AfAm (>60 ml/min/1.73 sqM) Est GFR (CKD-EPI)NonAf (>60 ml/min/1.73 sqM) Glucose (74-99) mg/dL Calcium (8.4-10.2) mg/dL Total Bilirubin (0.2-1.3) mg/dL AST (14-36) U/L ALT (4-34) U/L Alkaline Phosphatase (38-126) U/L Total Protein (6.3-8.2) g/dL Albumin (3.5-5.0) g/dL Amylase (30-110) U/L Lipase (23-300) U/L Urine Color Yellow Urine Appearance Clear (Clear) Urine pH 6.5 (5.0-8.0) Ur Specific [place] 1.025 (1.001-1.035) Urine Protein Negative (Negative) Urine Glucose (UA) Negative (Negative) Urine Ketones Negative (Negative) Urine Blood Negative (Negative) Urine Nitrite Negative (Negative) Urine Bilirubin Negative (Negative) Urine Urobilinogen 2.0 (<2.0) mg/dL Ur Leukocyte Esterase Negative (Negative) Urine HCG, Qual (Not Detectd) Disposition Clinical Impression: Intrauterine , Abdominal pain in Disposition: HOME SELF-CARE Condition: Good Instructions (If sedation given, give patient instructions): Abdominal Pain in (ED) Additional Instructions: 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 If you have any worsening symptoms or vaginal bleeding return to the emergency department. Is patient prescribed a controlled substance at d/c from ED?: No Referrals: Rory Miner DO [Primary Care Provider] - 1-2 days Mary Veloz MD [STAFF PHYSICIAN] - 1-2 days Time of Disposition: 01:34
[2019-04-20 01:49] VITALS: BP 112/71; PULSE 90; RESP 15; TEMP 98
== END 2019-04-20 01:46 | disposition home or self-care (01) ==
LOC: EC 22:21
DX: O99.89 Other specified diseases and conditions complicating pregnancy, childbirth and the puerperium (principal); R10.9 Unspecified abdominal pain; R00.0 Tachycardia, unspecified; R45.83 Excessive crying of child, adolescent or adult; M54.9 Dorsalgia, unspecified; O21.0 Mild hyperemesis gravidarum; O99.342 Other mental disorders complicating pregnancy, second trimester; F41.0 Panic disorder [episodic paroxysmal anxiety]; Z79.899 Other long term (current) drug therapy; Z87.59 Personal history of other complications of pregnancy, childbirth and the puerperium; Z3A.14 14 weeks gestation of pregnancy
CPT/HCPCS: 36415; 76801; 80053; 81003; 81025; 82150; 83690; 85025; 96360; 96361; 99284

== ENCOUNTER 2019-04-21 12:20 | Emergency (ER) | payer OTHER ==
[2019-04-21 12:33] VITALS: BP 128/85
[2019-04-21 12:48] VITALS: PULSE 123
[2019-04-21 12:49] VITALS: RESP 20
[2019-04-21 12:58] VITALS: TEMP 99.8
--- NOTE | 2019-04-21 13:21 | XR ---
EXAMINATION TYPE: XR chest 2V DATE OF EXAM: 04/21/2019 COMPARISON: 07/03/2014 TECHNIQUE: PA and lateral views submitted. HISTORY: Cough FINDINGS: The lungs are clear and there is no pneumothorax, pleural effusion, or focal pneumonia. No overt fa ilure. IMPRESSION: 1. No acute process.
[2019-04-21] MEDS ORDERED: ACETAMINOPHEN TAB 500 MG TAB PO STA (13:30)
--- NOTE | 2019-04-21 13:33 | ED ---
URI HPI - General Chief Complaint: Upper Respiratory Infection Stated Complaint: 13wks preg, cough Time Seen by Provider: 04/21/19 12:47 Source: patient, RN notes reviewed Mode of arrival: ambulatory Limitations: no limitations - History of Present Illness Initial Comments: 24-year-old female presents emergency Department with chief complaint cough congestion fever chills. Patient states that her boyfriend has been sick with similar symptoms. Patient states that she has a productive cough, nasal congestion, sore throat. Patient is concerned that she is . Patient seen here a few days ago for pain and concern of her patient states that she's had a stillborn but to 2 days ago which was unremarkable. patient denies any vaginal bleeding or vaginal discharge this time. patient took 500 mg of acetaminophen 3.5 hours prior arrival. patient offers no other complaints at this time. - Related Data Home Medications Medication Instructions Recorded Confirmed ALPRAZolam [Xanax] 0.5 mg PO DAILY PRN 03/14/18 03/23/18 Metoclopramide [Reglan] 10 mg PO Q8H PRN 03/14/18 03/23/18 Mirtazapine [Remeron] 45 mg PO HS 03/14/18 03/23/18 Ondansetron [Zofran ODT] 8 mg PO Q8H 03/14/18 03/23/18 Amoxic-Pot Clav 875-125Mg 1 tab PO BID 03/23/18 03/23/18 [Augmentin 875-125] Previous Rx's Medication Instructions Recorded Promethazine [Phenergan] 25 mg PO Q6HR #16 tablet 03/23/18 Allergies Allergy/AdvReac Type Severity Reaction Status Date / Time No Known Allergies Allergy Verified 04/21/19 12:31 Review of Systems ROS Statement: Those systems with pertinent positive or pertinent negative responses have been documented in the HPI. ROS Other: All systems not noted in ROS Statement are negative. Past Medical History Past Medical History: No Reported History Additional Past Medical History / Comment(s): anxiety and nausea, Still born at 7 months History of Any Multi-Drug Resistant Organisms: None Reported Past Surgical History: Adenoidectomy, Tonsillectomy Past Anesthesia/Blood Transfusion Reactions: Postoperative Nausea & Vomiting (PONV) Past Psychological History: Anxiety, Panic Disorder Smoking Status: Never smoker Past Alcohol Use History: None Reported Past Drug Use History: None Reported - Past Family History Father Family Medical History: Hypertension General Exam Limitations: no limitations General appearance: alert, in no apparent distress Head exam: Present: atraumatic, normocephalic, normal inspection Eye exam: Present: normal appearance, PERRL, EOMI. Absent: scleral icterus, conjunctival injection, periorbital swelling ENT exam: Present: normal exam, normal oropharynx, mucous membranes moist Neck exam: Present: normal inspection, full ROM. Absent: tenderness Respiratory exam: Present: normal lung sounds bilaterally. Absent: respiratory distress, wheezes, rales, rhonchi, stridor Cardiovascular Exam: Present: normal rhythm, tachycardia, normal heart sounds. Absent: systolic murmur, diastolic murmur, rubs, gallop, clicks GI/Abdominal exam: Present: soft, normal bowel sounds. Absent: distended, tenderness, guarding, rebound, rigid Course Vital Signs 04/21/19 04/21/19 04/21/19 12:29 12:48 12:57 Temperature 99.5 F 99.8 F H Pulse Rate 167 H 123 H Respiratory 16 20 Rate Blood Pressure 128/85 O2 Sat by Pulse 100 Oximetry - Reevaluation(s) Reevaluation #1: 04/21/19 13:32 EKG was obtained secondary to heart rate of 167 on triage EKG revealed heart rate of 123 Medical Decision Making - Medical Decision Making Patient has influenza A positive chest x-ray unremarkable. Patient does have mild tachycardia related to her fever. Patient denies increase fluids, continue Tylenol return for any worsening symptoms. Patient declines Tamiflu. - Lab Data Lab Results 04/21/19 Range/Units 13:06 Influenza Type A RNA Detected H (Not Detectd) Influenza Type B (PCR) Not Detected (Not Detectd) - EKG Data EKG Comments: EKG performed at 12:44 sinus tachycardia rate of 123 CA 142 QRS 80 QT/QTC 314/449 Disposition Clinical Impression: Influenza Disposition: HOME SELF-CARE Condition: Stable Instructions (If sedation given, give patient instructions): Influenza (ED) Additional Instructions: Please return to the Emergency Department if symptoms worsen or any other concerns. Is patient prescribed a controlled substance at d/c from ED?: No Referrals: Rory Miner DO [Primary Care Provider] - 1-2 days Time of Disposition: 13:40
== END 2019-04-21 13:45 | disposition home or self-care (01) ==
LOC: EC 12:20
DX: O99.511 Diseases of the respiratory system complicating pregnancy, first trimester (principal); J10.1 Influenza due to other identified influenza virus with other respiratory manifestations; O99.89 Other specified diseases and conditions complicating pregnancy, childbirth and the puerperium; R00.0 Tachycardia, unspecified; O99.341 Other mental disorders complicating pregnancy, first trimester; F41.9 Anxiety disorder, unspecified; Z79.899 Other long term (current) drug therapy; Z90.89 Acquired absence of other organs; Z3A.13 13 weeks gestation of pregnancy; Z82.49 Family history of ischemic heart disease and other diseases of the circulatory system
CPT/HCPCS: 71046; 87502; 93005; 99284

== ENCOUNTER 2019-04-22 11:30 | Emergency (ER) | payer OTHER ==
--- NOTE | 2019-04-22 12:14 | ED ---
General Adult HPI - General Source: patient Mode of arrival: ambulatory Limitations: no limitations <Taye Lockhart - Last Filed: 04/22/19 12:10> - General Source: patient, RN notes reviewed, old records reviewed Mode of arrival: ambulatory Limitations: no limitations <Stefan Drake - Last Filed: 04/22/19 14:49> - General Stated complaint: 14 wks preg/poss dehydration Time Seen by Provider: 04/22/19 12:10 - History of Present Illness Initial comments: 24-year-old female seen in triage. Patient presented yesterday and with influenza positive. 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 Patient doesn't that she has chronic nausea vomiting. (Taye Lockhart) 24-year-old female presenting for evaluation of URI symptoms, nausea, decreased appetite. Patient is currently 14 weeks , she was seen in the emergency department yesterday and diagnosed with influenza. She's been sick for 72 hours at this point. She is had decreased appetite and some nausea and vomiting. No diarrhea. She's had myalgias and has been unable to keep down Tylenol secondary to nausea. No lower abdominal pain, no vaginal bleeding. No vaginal discharge. (Stefan Drake) - Related Data Home Medications Medication Instructions Recorded Confirmed ALPRAZolam [Xanax] 0.5 mg PO DAILY PRN 03/14/18 03/23/18 Metoclopramide [Reglan] 10 mg PO Q8H PRN 03/14/18 03/23/18 Mirtazapine [Remeron] 45 mg PO HS 03/14/18 03/23/18 Ondansetron [Zofran ODT] 8 mg PO Q8H 03/14/18 03/23/18 Amoxic-Pot Clav 875-125Mg 1 tab PO BID 03/23/18 03/23/18 [Augmentin 875-125] Previous Rx's Medication Instructions Recorded Promethazine [Phenergan] 25 mg PO Q6HR #16 tablet 03/23/18 Allergies Allergy/AdvReac Type Severity Reaction Status Date / Time No Known Allergies Allergy Verified 04/22/19 12:11 Review of Systems ROS Other: All systems not noted in ROS Statement are negative. <Dedoe,Taye M - Last Filed: 04/22/19 12:10> ROS Other: All systems not noted in ROS Statement are negative. <Stefan Drake - Last Filed: 04/22/19 14:49> ROS Statement: Those systems with pertinent positive or pertinent negative responses have been documented in the HPI. Past Medical History Past Medical History: No Reported History Additional Past Medical History / Comment(s): anxiety and nausea, Still born at 7 months History of Any Multi-Drug Resistant Organisms: None Reported Past Surgical History: Adenoidectomy, Tonsillectomy Past Anesthesia/Blood Transfusion Reactions: Postoperative Nausea & Vomiting (PONV) Past Psychological History: Anxiety, Panic Disorder Smoking Status: Never smoker Past Alcohol Use History: None Reported Past Drug Use History: None Reported - Past Family History Father Family Medical History: Hypertension <PavelTaye romero - Last Filed: 04/22/19 12:10> General Exam General appearance: alert, in no apparent distress Head exam: Present: atraumatic, normocephalic Eye exam: Present: normal appearance, PERRL ENT exam: Present: mucous membranes dry Neck exam: Present: normal inspection. Absent: tenderness, meningismus Respiratory exam: Present: normal lung sounds bilaterally. Absent: respiratory distress, wheezes Cardiovascular Exam: Present: normal rhythm, tachycardia GI/Abdominal exam: Present: soft. Absent: distended, tenderness, guarding, rebound Extremities exam: Present: normal inspection, normal capillary refill. Absent: calf tenderness Neurological exam: Present: alert, oriented X3, CN II-XII intact. Absent: motor sensory deficit Psychiatric exam: Present: normal affect, normal mood Skin exam: Present: warm, dry, intact. Absent: cyanosis, diaphoretic <Stefan Drake N - Last Filed: 04/22/19 14:49> Course Vital Signs 04/22/19 04/22/19 12:08 13:11 Temperature 99.7 F H Pulse Rate 117 H Respiratory 20 16 Rate Blood Pressure 122/81 O2 Sat by Pulse 100 Oximetry Medical Decision Making - Lab Data Result diagrams: 04/22/19 12:30 04/22/19 12:30 <Stefan Drake - Last Filed: 04/22/19 14:49> - Medical Decision Making 24-year-old female influenza A positive, 14 weeks presenting with nausea vomiting, dehydration. Patient's is tachycardic and appears dehydrated on initial exam. Given fluid bolus. She has normal CBC, normal CMP, urinalysis negative for infection but does show 3+ ketones consistent with dehydration. After Tylenol, Zofran, and rehydration patient's feeling much better. She will be discharged home with close outpatient follow-up. She will return with worsening or changing symptoms. (Stefan Drake) - Lab Data Lab Results 04/22/19 04/22/19 04/22/19 Range/Units 12:30 12:30 14:00 WBC 7.0 (3.8-10.6) k/uL RBC 4.16 (3.80-5.40) m/uL Hgb 11.5 (11.4-16.0) gm/dL Hct 34.0 (34.0-46.0) % MCV 81.6 (80.0-100.0) fL MCH 27.6 (25.0-35.0) pg MCHC 33.9 (31.0-37.0) g/dL RDW 13.4 (11.5-15.5) % Plt Count 294 (150-450) k/uL Neutrophils % 76 % Lymphocytes % 13 % Monocytes % 8 % Eosinophils % 1 % Basophils % 1 % Neutrophils # 5.3 (1.3-7.7) k/uL Lymphocytes # 0.9 L (1.0-4.8) k/uL Monocytes # 0.5 (0-1.0) k/uL Eosinophils # 0.1 (0-0.7) k/uL Basophils # 0.1 (0-0.2) k/uL Sodium 135 L (137-145) mmol/L Potassium 3.8 (3.5-5.1) mmol/L Chloride 103 (98-107) mmol/L Carbon Dioxide 22 (22-30) mmol/L Anion Gap 10 mmol/L BUN 4 L (7-17) mg/dL Creatinine 0.40 L (0.52-1.04) mg/dL Est GFR (CKD-EPI)AfAm >90 (>60 ml/min/1.73 sqM) Est GFR (CKD-EPI)NonAf >90 (>60 ml/min/1.73 sqM) Glucose 99 (74-99) mg/dL Calcium 9.4 (8.4-10.2) mg/dL Total Bilirubin 0.4 (0.2-1.3) mg/dL AST 28 (14-36) U/L ALT 17 (4-34) U/L Alkaline Phosphatase 126 (38-126) U/L Total Protein 7.4 (6.3-8.2) g/dL Albumin 4.2 (3.5-5.0) g/dL Urine Color Yellow Urine Appearance Clear (Clear) Urine pH 6.5 (5.0-8.0) Ur Specific [place] 1.023 (1.001-1.035) Urine Protein Trace H (Negative) Urine Glucose (UA) Negative (Negative) Urine Ketones 3+ H (Negative) Urine Blood Negative (Negative) Urine Nitrite Negative (Negative) Urine Bilirubin Negative (Negative) Urine Urobilinogen 3.0 (<2.0) mg/dL Ur Leukocyte Esterase Negative (Negative) Disposition <Taye Lockhart M - Last Filed: 04/22/19 12:10> Is patient prescribed a controlled substance at d/c from ED?: No Time of Disposition: 14:49 <Stefan Drake - Last Filed: 04/22/19 14:49> Clinical Impression: Dehydration, Influenza, Intrauterine Disposition: HOME SELF-CARE Condition: Good Instructions (If sedation given, give patient instructions): Acute Nausea and Vomiting (ED), Dehydration (ED) Referrals: Rory Miner DO [Primary Care Provider] - 1-2 days
[2019-04-22] MEDS ORDERED: SODIUM CHLORIDE 0.9% 1,000 ML IV STA (12:19)
[2019-04-22 12:46] LABS: Basophils # (A) 0.1 k/uL (0-0.2); Basophils % (A) 1 %; Eosinophils # (A) 0.1 k/uL (0-0.7); Eosinophils % (A) 1 %; HGB 11.5 gm/dL (11.4-16.0); Lymphocytes # (A) 0.9 k/uL (1.0-4.8); Lymphocytes % (A) 13 %; MCH 27.6 pg (25.0-35.0); MCHC 33.9 g/dL (31.0-37.0); MCV 81.6 fL (80.0-100.0); Mean Platelet Volume 6.8; Monocytes # (A) 0.5 k/uL (0-1.0); Monocytes % (A) 8 %; Neutrophils # (A) 5.3 k/uL (1.3-7.7); Neutrophils % (A) 76 %; Platelet Count 294 k/uL (150-450); RBC 4.16 m/uL (3.80-5.40); RDW 13.4 % (11.5-15.5)
[2019-04-22 13:08] LABS: ALT 17 U/L (4-34); AST 28 U/L (14-36); African American GFR (CKD) >90 (>60 ml/min/1.73 sqM); Albumin 4.2 g/dL (3.5-5.0); Alkaline Phosphatase 126 U/L (38-126); Anion Gap 10 mmol/L; Blood Urea Nitrogen 4 mg/dL (7-17); Calcium 9.4 mg/dL (8.4-10.2); Carbon Dioxide 22 mmol/L (22-30); Chloride 103 mmol/L (98-107); Glucose 99 mg/dL (74-99); Non-African American GFR(CKD) >90 (>60 ml/min/1.73 sqM); Potassium 3.8 mmol/L (3.5-5.1); Sodium 135 mmol/L (137-145); Total Bilirubin 0.4 mg/dL (0.2-1.3); Total Protein 7.4 g/dL (6.3-8.2)
[2019-04-22] MEDS ORDERED: ACETAMINOPHEN TAB 500 MG TAB PO STA (13:25)
[2019-04-22] MEDS ORDERED: SODIUM CHLORIDE 0.9% 500 ML 500 ML IV ONE (13:25)
[2019-04-22] MEDS ORDERED: ONDANSETRON 4 MG/2 ML VIAL IVP STA (13:59)
[2019-04-22 14:08] VITALS: RESP 16
[2019-04-22 14:30] LABS: Appearance,Urine Clear (Clear); Bilirubin,Urine Negative (Negative); Blood,Urine Negative (Negative); Color,Urine Yellow; Glucose,Urine (UA) Negative (Negative); Ketones,Urine 3+ (Negative); Leukocyte Esterase,Urine Negative (Negative); Nitrite,Urine Negative (Negative); PH, Urine 6.5 (5.0-8.0); Protein,Urine Trace (Negative); Specific Gravity,Urine 1.023 (1.001-1.035)
[2019-04-22 14:57] VITALS: BP 117/64; PULSE 106; TEMP 98.8
== END 2019-04-22 14:55 | disposition home or self-care (01) ==
LOC: EC 11:30
DX: O99.281 Endocrine, nutritional and metabolic diseases complicating pregnancy, first trimester (principal); E86.0 Dehydration; O99.511 Diseases of the respiratory system complicating pregnancy, first trimester; J11.1 Influenza due to unidentified influenza virus with other respiratory manifestations; O21.9 Vomiting of pregnancy, unspecified; O99.341 Other mental disorders complicating pregnancy, first trimester; F41.9 Anxiety disorder, unspecified; Z79.899 Other long term (current) drug therapy; Z3A.14 14 weeks gestation of pregnancy
CPT/HCPCS: 36415; 80053; 85025; 81003; 99284; 96374; 96361 ×2; J2405

== ENCOUNTER 2019-05-27 03:28 | Emergency (ER) | payer OTHER ==
[2019-05-27 03:33] VITALS: RESP 16; TEMP 98.3
[2019-05-27] MEDS ORDERED: SODIUM CHLORIDE 0.9% 1,000 ML IV ONE (03:49)
--- NOTE | 2019-05-27 03:52 | ED ---
Abdominal Pain HPI - General Chief Complaint: Abdominal Pain Stated Complaint: 19-20 wks preg,abd/back pain Time Seen by Provider: 05/27/19 03:41 Source: patient Mode of arrival: ambulatory Limitations: no limitations - History of Present Illness Initial Comments: Patient is 24-year-old woman presenting to be evaluated for suprapubic abdominal pain. She states she had been at work earlier and then tonight sometime around 11 began experiencing severe sharp cramping pain. She states seems to come in waves. She denies any vaginal bleeding or discharge. No fever or chills. No vomiting, change in bowel movements or urination. Patient believes that she is approximately 19 weeks . She does have an appointment with Dr. Veloz for this morning. Patient is with what sounds like previous field demise at 30 weeks. MD Complaint: abdominal pain Onset/Timin -: hour(s) Location: suprapubic Radiation: none Migration to: no migration Severity: severe Quality: cramping Consistency: colicky Improves With: nothing Worsens With: nothing Associated Symptoms: denies other symptoms - Related Data LMP (females 10-50): Patient : Yes Number of weeks : 19 Home Medications Medication Instructions Recorded Confirmed ALPRAZolam [Xanax] 0.5 mg PO DAILY PRN 03/14/18 03/23/18 Metoclopramide [Reglan] 10 mg PO Q8H PRN 03/14/18 03/23/18 Mirtazapine [Remeron] 45 mg PO HS 03/14/18 03/23/18 Ondansetron [Zofran ODT] 8 mg PO Q8H 03/14/18 03/23/18 Amoxic-Pot Clav 875-125Mg 1 tab PO BID 03/23/18 03/23/18 [Augmentin 875-125] Previous Rx's Medication Instructions Recorded Promethazine [Phenergan] 25 mg PO Q6HR #16 tablet 03/23/18 Allergies Allergy/AdvReac Type Severity Reaction Status Date / Time No Known Allergies Allergy Verified 05/27/19 03:33 Review of Systems ROS Statement: Those systems with pertinent positive or pertinent negative responses have been documented in the HPI. ROS Other: All systems not noted in ROS Statement are negative. Constitutional: Denies: fever, chills Respiratory: Denies: cough, dyspnea Cardiovascular: Denies: chest pain, palpitations, edema Gastrointestinal: Reports: abdominal pain. Denies: nausea, vomiting, diarrhea, constipation Genitourinary: Denies: dysuria, frequency, hematuria, discharge, abnormal menses Musculoskeletal: Denies: back pain Skin: Denies: rash Neurological: Denies: headache Past Medical History Past Medical History: No Reported History Additional Past Medical History / Comment(s): anxiety and nausea, Still born at 7 months History of Any Multi-Drug Resistant Organisms: None Reported Past Surgical History: Adenoidectomy, Tonsillectomy Past Anesthesia/Blood Transfusion Reactions: Postoperative Nausea & Vomiting (PONV) Past Psychological History: Anxiety, Panic Disorder Smoking Status: Never smoker Past Alcohol Use History: None Reported Past Drug Use History: None Reported - Past Family History Father Family Medical History: Hypertension General Exam Limitations: no limitations General appearance: alert, in no apparent distress Head exam: Present: atraumatic, normocephalic Eye exam: Present: normal appearance. Absent: scleral icterus, conjunctival injection ENT exam: Present: normal oropharynx Neck exam: Present: normal inspection Respiratory exam: Present: normal lung sounds bilaterally. Absent: respiratory distress, wheezes, rales, rhonchi, stridor Cardiovascular Exam: Present: regular rate, normal rhythm, normal heart sounds. Absent: systolic murmur, diastolic murmur, rubs, gallop GI/Abdominal exam: Present: soft, other (Gravid uterus palpable to just below the umbilicus.). Absent: distended, tenderness, guarding, rebound, rigid, mass Extremities exam: Present: normal inspection, normal capillary refill. Absent: pedal edema, calf tenderness Back exam: Present: normal inspection. Absent: CVA tenderness (R), CVA tenderness (L) Neurological exam: Present: alert Skin exam: Present: warm, dry, intact, normal color. Absent: rash Course Vital Signs 05/27/19 03:31 Temperature 98.3 F Pulse Rate 117 H Respiratory 16 Rate Blood Pressure 131/82 O2 Sat by Pulse 99 Oximetry Medical Decision Making - Medical Decision Making Patient is 24-year-old woman estimated to be 19 weeks with suprapubic abdominal pain. The workup is unremarkable. The patient does have normal heart tones. She does state that she is feeling markedly better following IV fluid here. In fact the patient is feeling so much better that she would like to go home and follow-up with Dr. Veloz today at her scheduled appointment. I did discuss that I was planning to call the physician covering for Dr. Veloz, patient states she is feeling somewhat better that she doesn't really want to wait for the phone call and will just go to the clinic today. She will return should any symptoms recur. - Lab Data Result diagrams: 05/27/19 03:44 05/27/19 03:44 Lab Results 05/27/19 05/27/19 05/27/19 Range/Units 03:35 03:44 03:44 WBC 9.8 (3.8-10.6) k/uL RBC 4.32 (3.80-5.40) m/uL Hgb 11.3 L (11.4-16.0) gm/dL Hct 35.6 (34.0-46.0) % MCV 82.5 (80.0-100.0) fL MCH 26.3 (25.0-35.0) pg MCHC 31.8 (31.0-37.0) g/dL RDW 13.0 (11.5-15.5) % Plt Count 302 (150-450) k/uL Neutrophils % 57 % Lymphocytes % 34 % Monocytes % 4 % Eosinophils % 2 % Basophils % 1 % Neutrophils # 5.6 (1.3-7.7) k/uL Lymphocytes # 3.3 (1.0-4.8) k/uL Monocytes # 0.4 (0-1.0) k/uL Eosinophils # 0.2 (0-0.7) k/uL Basophils # 0.1 (0-0.2) k/uL Sodium 135 L (137-145) mmol/L Potassium 4.2 (3.5-5.1) mmol/L Chloride 104 (98-107) mmol/L Carbon Dioxide 25 (22-30) mmol/L Anion Gap 6 mmol/L BUN 7 (7-17) mg/dL Creatinine 0.38 L (0.52-1.04) mg/dL Est GFR (CKD-EPI)AfAm >90 (>60 ml/min/1.73 sqM) Est GFR (CKD-EPI)NonAf >90 (>60 ml/min/1.73 sqM) Glucose 92 (74-99) mg/dL Calcium 9.8 (8.4-10.2) mg/dL Total Bilirubin 0.4 (0.2-1.3) mg/dL AST 24 (14-36) U/L ALT 10 (4-34) U/L Alkaline Phosphatase 113 (38-126) U/L Total Protein 7.5 (6.3-8.2) g/dL Albumin 4.3 (3.5-5.0) g/dL Amylase 53 (30-110) U/L Lipase 80 (23-300) U/L Urine Color Colorless Urine Appearance Clear (Clear) Urine pH 7.0 (5.0-8.0) Ur Specific [place] 1.005 (1.001-1.035) Urine Protein Negative (Negative) Urine Glucose (UA) Negative (Negative) Urine Ketones Negative (Negative) Urine Blood Negative (Negative) Urine Nitrite Negative (Negative) Urine Bilirubin Negative (Negative) Urine Urobilinogen <2.0 (<2.0) mg/dL Ur Leukocyte Esterase Negative (Negative) Blood Type Blood Type Recheck Bld Type Recheck Status 05/27/19 Range/Units 04:11 WBC (3.8-10.6) k/uL RBC (3.80-5.40) m/uL Hgb (11.4-16.0) gm/dL Hct (34.0-46.0) % MCV (80.0-100.0) fL MCH (25.0-35.0) pg MCHC (31.0-37.0) g/dL RDW (11.5-15.5) % Plt Count (150-450) k/uL Neutrophils % % Lymphocytes % % Monocytes % % Eosinophils % % Basophils % % Neutrophils # (1.3-7.7) k/uL Lymphocytes # (1.0-4.8) k/uL Monocytes # (0-1.0) k/uL Eosinophils # (0-0.7) k/uL Basophils # (0-0.2) k/uL Sodium (137-145) mmol/L Potassium (3.5-5.1) mmol/L Chloride (98-107) mmol/L Carbon Dioxide (22-30) mmol/L Anion Gap mmol/L BUN (7-17) mg/dL Creatinine (0.52-1.04) mg/dL Est GFR (CKD-EPI)AfAm (>60 ml/min/1.73 sqM) Est GFR (CKD-EPI)NonAf (>60 ml/min/1.73 sqM) Glucose (74-99) mg/dL Calcium (8.4-10.2) mg/dL Total Bilirubin (0.2-1.3) mg/dL AST (14-36) U/L ALT (4-34) U/L Alkaline Phosphatase (38-126) U/L Total Protein (6.3-8.2) g/dL Albumin (3.5-5.0) g/dL Amylase (30-110) U/L Lipase (23-300) U/L Urine Color Urine Appearance (Clear) Urine pH (5.0-8.0) Ur Specific [place] (1.001-1.035) Urine Protein (Negative) Urine Glucose (UA) (Negative) Urine Ketones (Negative) Urine Blood (Negative) Urine Nitrite (Negative) Urine Bilirubin (Negative) Urine Urobilinogen (<2.0) mg/dL Ur Leukocyte Esterase (Negative) Blood Type B Positive Blood Type Recheck B Pos Bld Type Recheck Status No Disposition Clinical Impression: Abdominal pain affecting Disposition: HOME SELF-CARE Condition: Good Instructions (If sedation given, give patient instructions): Abdominal Pain in (ED) Is patient prescribed a controlled substance at d/c from ED?: No Referrals: Rory Miner DO [Primary Care Provider] - 1-2 days Mary Veloz MD [STAFF PHYSICIAN] - 1-2 days
[2019-05-27 04:01] LABS: Basophils # (A) 0.1 k/uL (0-0.2); Basophils % (A) 1 %; Eosinophils # (A) 0.2 k/uL (0-0.7); Eosinophils % (A) 2 %; HCT 35.6 % (34.0-46.0); HGB 11.3 gm/dL (11.4-16.0); Lymphocytes # (A) 3.3 k/uL (1.0-4.8); Lymphocytes % (A) 34 %; MCH 26.3 pg (25.0-35.0); MCHC 31.8 g/dL (31.0-37.0); MCV 82.5 fL (80.0-100.0); Mean Platelet Volume 6.8; Monocytes # (A) 0.4 k/uL (0-1.0); Monocytes % (A) 4 %; Neutrophils # (A) 5.6 k/uL (1.3-7.7); Neutrophils % (A) 57 %; Platelet Count 302 k/uL (150-450); RBC 4.32 m/uL (3.80-5.40); WBC 9.8 k/uL (3.8-10.6)
[2019-05-27 04:03] LABS: Appearance,Urine Clear (Clear); Bilirubin,Urine Negative (Negative); Blood,Urine Negative (Negative); Color,Urine Colorless; Glucose,Urine (UA) Negative (Negative); Ketones,Urine Negative (Negative); Leukocyte Esterase,Urine Negative (Negative); Nitrite,Urine Negative (Negative); Protein,Urine Negative (Negative); Specific Gravity,Urine 1.005 (1.001-1.035); Urobilinogen,Urine <2.0 mg/dL (<2.0)
[2019-05-27 04:11] LABS: ALT 10 U/L (4-34); AST 24 U/L (14-36); African American GFR (CKD) >90 (>60 ml/min/1.73 sqM); Albumin 4.3 g/dL (3.5-5.0); Alkaline Phosphatase 113 U/L (38-126); Amylase 53 U/L (30-110); Anion Gap 6 mmol/L; Blood Urea Nitrogen 7 mg/dL (7-17); Calcium 9.8 mg/dL (8.4-10.2); Carbon Dioxide 25 mmol/L (22-30); Chloride 104 mmol/L (98-107); Glucose 92 mg/dL (74-99); Non-African American GFR(CKD) >90 (>60 ml/min/1.73 sqM); Potassium 4.2 mmol/L (3.5-5.1); Sodium 135 mmol/L (137-145); Total Bilirubin 0.4 mg/dL (0.2-1.3); Total Protein 7.5 g/dL (6.3-8.2)
[2019-05-27 05:53] VITALS: BP 113/72; PULSE 90
== END 2019-05-27 05:56 | disposition home or self-care (01) ==
LOC: EC 03:28
DX: O26.892 Other specified pregnancy related conditions, second trimester (principal); O99.342 Other mental disorders complicating pregnancy, second trimester; F41.0 Panic disorder [episodic paroxysmal anxiety]; Z3A.19 19 weeks gestation of pregnancy; Z79.899 Other long term (current) drug therapy
CPT/HCPCS: 36415; 80053; 81003; 82150; 83690; 85025; 86900; 86901; 96360; 99284

== ENCOUNTER 2019-07-19 16:45 | Outpatient (CLI) | payer OTHER ==
[2019-07-19 17:43] LABS: Basophils % (A) 0 %; Eosinophils # (A) 0.2 k/uL (0-0.7); Eosinophils % (A) 2 %; HCT 36.1 % (34.0-46.0); HGB 11.8 gm/dL (11.4-16.0); Lymphocytes # (A) 2.7 k/uL (1.0-4.8); Lymphocytes % (A) 23 %; MCH 25.4 pg (25.0-35.0); MCHC 32.7 g/dL (31.0-37.0); MCV 77.8 fL (80.0-100.0); Mean Platelet Volume 7.4; Monocytes # (A) 0.4 k/uL (0-1.0); Monocytes % (A) 3 %; Neutrophils # (A) 8.1 k/uL (1.3-7.7); Neutrophils % (A) 70 %; Platelet Count 249 k/uL (150-450); RBC 4.64 m/uL (3.80-5.40); RDW 12.8 % (11.5-15.5); WBC 11.7 k/uL (3.8-10.6)
[2019-07-19 17:45] LABS: Appearance,Urine Clear (Clear); Bacteria,Urine Rare /hpf; Bilirubin,Urine Negative (Negative); Blood,Urine Negative (Negative); Color,Urine Yellow; Glucose,Urine (UA) Negative (Negative); Ketones,Urine Negative (Negative); Leukocyte Esterase,Urine Negative (Negative); Mucus,Urine Few /hpf; Nitrite,Urine Negative (Negative); Protein,Urine 1+ (Negative); Specific Gravity,Urine 1.013 (1.001-1.035); Squamous Epithelial Cell,Urine 4 /hpf (0-4); Urobilinogen,Urine <2.0 mg/dL (<2.0); WBC,Urine 1 /hpf (0-5)
[2019-07-19 18:03] LABS: ALT 11 U/L (4-34); AST 31 U/L (14-36); African American GFR (CKD) >90 (>60 ml/min/1.73 sqM); Blood Urea Nitrogen 8 mg/dL (7-17); LDH 805 U/L (313-618); Magnesium 2.4 mg/dL (1.6-2.3); Non-African American GFR(CKD) >90 (>60 ml/min/1.73 sqM); Uric Acid 3.5 mg/dL (3.7-7.4)
[2019-07-19] MEDS: LACTATED RINGERS 1,000 ML IV SCH ×3 (18:07→19:56)
[2019-07-19] MEDS ORDERED: BETAMET ACET-BETAMETH SOD PHOS 6 MG/ML VIAL IM SCH (18:45)
--- NOTE | 2019-07-19 19:36 | US ---
EXAMINATION TYPE: US OB >= 14 wk fetus DATE OF EXAM: 07/19/2019 COMPARISON: None CLINICAL HISTORY: non reassuring heart tonesContractions. TECHNIQUE: Transabdominal (TA) GESTATIONAL AGE / DATING Physician Established: (25 weeks/3 days) EDC: 10/29/2019 Dates by LMP: (25 weeks/3 days) EDC: 10/29/2019 Dates by First Scan: No previous this is first scan Dates by Current Scan: (25 weeks/3 days) EDC: 10/29/2019 SURVEY IUP: Single PLACENTA: Posterior PREVIA: No Previa ROM: 10.8 cm CERVICAL LENGTH (transabdominal: norm > 3.0cm): 3.9 cm BIOMETRY PRESENTATION: Vertex LIE: Longitudinal BPD: 6.57 cm 26 weeks / 4 days HC: 22.34 cm 24 weeks / 3 days AC: 20.49 cm 25 weeks / 1 days FL: 4.98 cm 26 weeks / 6 days ESTIMATED WEIGHT IN GRAMS: 843.93 grams ESTIMATED WEIGHT IN LBS/OZ: 1 lbs. 14 oz. HC/AC: 1.09cm Normal FL/AC: 24.31cm Normal HEART RATE: 163 bpm RHYTHM: Normal IMPRESSION: No complicating process seen. There is fairly satisfactory growth compared to previous exam of 04/20/19.
[2019-07-19] MEDS ORDERED: LABETALOL 5 MG/ML VIAL MDV IVP STA ×2 (19:39→19:46)
[2019-07-19] MEDS ORDERED: MAGNESIUM SULFATE-WATER PMX 4 GM in WATER FOR INJECTION 1 100ML.BAG IVPB ONE (20:10)
[2019-07-19] MEDS ORDERED: MAGNESIUM SULFATE-WATER PMX 20 GM in WATER FOR INJECTION 1 500ML.BAG IV SCH (20:15)
--- NOTE | 2019-07-19 20:35 | P.HPOB ---
History of Present Illness H&P Date: 07/19/19 Chief Complaint: 26-0/7 weeks, suspected preeclampsia with severe features The patient is a 24-year-old 2 para 0100 admitted through triage at 26- 0/7 weeks as established by last menstrual period and confirmed by 19 week ultrasound. She is admitted with a report of significantly decreased movement over the last 24 hours as well as elevating blood pressures at home. She secondarily reports a history of a headache for the last 2 days which she reports as not severe. On labor and delivery, she was found to have fairly significantly elevated blood pressures in the range of 150-160/95-105. heart tones were category 2 with minimal short-term variability and repetitive and occasionally deep variable decelerations. Aggressive rehydration was birgit d out which spaced out contractions fairly significantly. Along with position changes of the patient, the variable decelerations were significantly blunted and have now slowed to perhaps every 20-25 minutes. Laboratory workup returned with normal platelet count and CBC in general, normal liver function tests, elevated LDH at approximately 860, and 1+ protein noted in the urine. She does not currently complaining of a headache and has normal reflexes on examination. Digital cervical examination by the nursing staff demonstrated her cervix to be 1 cm dilated at the external os. Bedside ultrasound demonstrated what appears to be appropriate growth with estimated weight at 843 g or 1 pounds 14 ounces in the vertex presentation. Amniotic fluid index was 10.9 cm. Placenta was posterior with no evidence of any retroplacental findings were other concerns. She does carry a history of a previous demise at 30 weeks for which no etiology was found. This has also been noted to have a circumvallate placenta. At this time, heart tones remained blunted but have minimal decelerations spaced widely apart. They remain category 2. The patient also does carry a history of fairly significant anxiety with panic attacks though she is showing no evidence of this at this time. Obstetrical history: 2 para 0100 to history of a previous 30 week demise without an apparent diagnosis. Current statistics are listed in history present illness. EDC of 10/22/2019 was established by last menstrual period and confirmed by 19 week ultrasound. Laboratory workup demonstrates a blood type of B+ with a negative antibody screen. Rubella status is immune. The remainder of the laboratory workup was within normal limits. She did undergo trisomy testing which was negative for findings of trisomy. One hour Glucola and further testing has not been performed. Gynecologic history: Unremarkable with no history of any infections to include STDs. Review of Systems Review of systems is confined to history of present illness. Past Medical History Past Medical History: No Reported History Additional Past Medical History / Comment(s): anxiety and nausea, Still born at 7 months History of Any Multi-Drug Resistant Organisms: None Reported Past Surgical History: Adenoidectomy, Tonsillectomy Past Anesthesia/Blood Transfusion Reactions: Postoperative Nausea & Vomiting (P ONV) Smoking Status: Never smoker - Past Family History Father Family Medical History: Hypertension Medications and Allergies Home Medications Medication Instructions Recorded Confirmed Type Metoclopramide [Reglan] 10 mg PO Q8H PRN 03/14/18 07/19/19 History Ondansetron [Zofran ODT] 4 mg PO Q8H 03/14/18 07/19/19 History Pnv,Calcium 72/Iron/Folic Acid 1 tab PO DAILY 07/19/19 07/19/19 History [ Plus Tablet] Allergies Allergy/AdvReac Type Severity Reaction Status Date / Time No Known Allergies Allergy Verified 07/19/19 17:15 Exam Intake and Output 07/19/19 07/19/19 07/19/19 06:59 14:59 22:59 Other: Weight 57.153 kg In general, this is a well-developed, well-nourished white female in no acute distress though she is anxious under the current circumstances. Her heart has a regular rhythm and rate without murmur. Her lungs are clear to auscultation bilaterally in all owen. Her abdomen is gravid, nondistended, has normal active bowel sounds, soft, nontender, and without any palpable masses aside from uterine fundus. Her extremities are without any cyanosis, clubbing, or edema and are nontender to palpation bilaterally. Digital cervical examination performed by the nursing staff demonstrated her external os to be dilated at 1 cm the cervix is otherwise thick and high. fibronectin was negative. Results Result Diagrams: 07/19/19 17:25 07/19/19 17:25 Abnormal Lab Results - Last 24 Hours (Table) 07/19/19 07/19/19 07/19/19 Range/Units 17:25 17:25 17:30 WBC 11.7 H (3.8-10.6) k/uL MCV 77.8 L (80.0-100.0) fL Neutrophils # 8.1 H (1.3-7.7) k/uL Creatinine 0.43 L (0.52-1.04) mg/dL Uric Acid 3.5 L (3.7-7.4) mg/dL Magnesium 2.4 H (1.6-2.3) mg/dL Lactate Dehydrogenase 805 H (313-618) U/L Urine Protein 1+ H (Negative) Urine Bacteria Rare H (None) /hpf Urine Mucus Few H (None) /hpf Assessment and Plan (1) Preeclampsia Current Visit: Yes Status: Acute Code(s): O14.90 - UNSPECIFIED PRE- ECLAMPSIA, UNSPECIFIED TRIMESTER SNOMED Code(s): 484989424 (2) contractions Current Visit: Yes Status: Acute Code(s): O47.9 - FALSE LABOR, UNSPECIFIED SNOMED Code(s): 031973636 (3) Circumvallate placenta Current Visit: Yes Status: Acute Code(s): O43.119 - CIRCUMVALLATE PLACENTA, UNSPECIFIED TRIMESTER SNOMED Code(s): 7478404 Plan: The current working diagnosis is preeclampsia with possible severe features. Given the patient's gestational age, she will be transferred to a tertiary care center secondary to both and services availability. I have discussed the case with Dr. Brown at [facility] who has accepted the transfer. She currently appears to be stable for transfer. She has been given betamethasone all 0.5 mg intramuscularly 1. She additionally was treated with labetalol 10 mg IV which temporarily lowered her blood pressure. She is currently being started on magnesium sulfate 4 g IV loading dose to be followed by 2 g per hour. Further management of her care will take place once she arrives at [facility].
== END 2019-07-19 20:55 | disposition other institution (70) ==
LOC: FBPOP 16:45
PROVIDERS: ATTEND Obstetrics & Gynecology
DX: O14.90 Unspecified pre-eclampsia, unspecified trimester (principal); O47.9 False labor, unspecified; O43.119 Circumvallate placenta, unspecified trimester; Z3A.00 Weeks of gestation of pregnancy not specified; Z79.899 Other long term (current) drug therapy
CPT/HCPCS: 96376; 96361; 96365; 96375; 96372; 82731; 82565; 83615; 83735; 84450; 84460; 84520; 84550; 85025; 85384; 81001; 76805; G0463; J0702; J3475 ×2; 99215

== ENCOUNTER 2019-10-26 04:30 | Emergency (ER) | payer OTHER ==
[2019-10-26 04:49] VITALS: TEMP 98
[2019-10-26] MEDS ORDERED: PROMETHAZINE INJ 25 MG/ML 1 ML VIAL IM STA (05:06)
[2019-10-26] MEDS ORDERED: LORazepam 1 MG TAB PO STA (05:07)
--- NOTE | 2019-10-26 05:10 | ED ---
Anxiety HPI - General Chief Complaint: Anxiety Stated Complaint: panic attack Time Seen by Provider: 10/26/19 04:48 Source: patient Mode of arrival: ambulatory - History of Present Illness Initial Comments: This patient is 24-year-old woman who states she has history of anxiety and panic attacks. She states that she is here because she has had a number of roundsof vomiting. MD Complaint: anxiety -: hour(s) Symptoms: extremity numbness/tingling, perioral numbness/tingling, dry mouth Place: home Previous History of Same: Yes Severity: moderate Quality: constant Provoking factors: emotional stress Improves With: nothing Worsens With: nothing Associated symptoms: nausea/vomiting - Related Data Home Medications: Home Medications Medication Instructions Recorded Confirmed Metoclopramide [Reglan] 10 mg PO Q8H PRN 03/14/18 07/19/19 Ondansetron [Zofran ODT] 4 mg PO Q8H 03/14/18 07/19/19 Pnv,Calcium 72/Iron/Folic Acid 1 tab PO DAILY 07/19/19 07/19/19 [ Plus Tablet] Allergies/Adverse Reactions: Allergies Allergy/AdvReac Type Severity Reaction Status Date / Time No Known Allergies Allergy Verified 10/26/19 04:49 Review of Systems ROS Statement: Those systems with pertinent positive or pertinent negative responses have been documented in the HPI. ROS Other: All systems not noted in ROS Statement are negative. Constitutional: Denies: fever, chills Respiratory: Denies: cough, dyspnea Cardiovascular: Reports: palpitations. Denies: chest pain, syncope Gastrointestinal: Reports: nausea, vomiting. Denies: abdominal pain, diarrhea, hematemesis Genitourinary: Denies: dysuria, hematuria Musculoskeletal: Denies: back pain Skin: Denies: rash Neurological: Denies: headache, weakness, numbness Psychiatric: Reports: anxiety. Denies: depression, homicidal thoughts, suicidal thoughts Past Medical History Past Medical History: No Reported History Additional Past Medical History / Comment(s): anxiety and nausea, 2 miscarriage, preeclampsia History of Any Multi-Drug Resistant Organisms: None Reported Past Surgical History: Adenoidectomy, Section, Tonsillectomy Past Anesthesia/Blood Transfusion Reactions: Postoperative Nausea & Vomiting (PONV) Past Psychological History: Anxiety, Panic Disorder Smoking Status: Never smoker Past Alcohol Use History: None Reported Past Drug Use History: Marijuana - Past Family History Father Family Medical History: Hypertension General Exam Limitations: no limitations General appearance: alert, anxious Head exam: Present: atraumatic, normocephalic Eye exam: Present: normal appearance. Absent: scleral icterus, conjunctival injection ENT exam: Present: normal oropharynx Respiratory exam: Present: normal lung sounds bilaterally. Absent: respiratory distress, wheezes, rales, rhonchi, stridor Cardiovascular Exam: Present: normal rhythm, tachycardia, normal heart sounds. Absent: systolic murmur, diastolic murmur, rubs, gallop GI/Abdominal exam: Present: soft. Absent: distended, tenderness, guarding, rebound, rigid, mass Extremities exam: Present: normal inspection, normal capillary refill. Absent: pedal edema, calf tenderness Back exam: Present: normal inspection. Absent: CVA tenderness (R), CVA tenderness (L) Neurological exam: Present: alert Psychiatric exam: Present: anxious. Absent: depressed, manic, homicidal ideation, suicidal ideation Skin exam: Present: warm, dry, intact, normal color. Absent: rash Course Vital Signs 10/26/19 10/26/19 10/26/19 04:45 05:17 06:10 Temperature 98 F Pulse Rate 108 H 84 80 Respiratory 24 18 18 Rate Blood Pressure 139/110 131/92 125/90 O2 Sat by Pulse 98 100 99 Oximetry 10/26/19 07:33 Temperature Pulse Rate 83 Respiratory 18 Rate Blood Pressure 127/95 O2 Sat by Pulse 100 Oximetry Medical Decision Making - Medical Decision Making This patient is a 24-year-old woman with history of anxiety and panic attacks. She presents with an exacerbation of her panic attacks as this is proximally the date she would have delivered had she not miscarried. Patient is feeling better following medication here. She will follow-up. Discussed return parameters and appropriate follow-up care. Disposition Clinical Impression: Panic attack Disposition: HOME SELF-CARE Condition: Fair Instructions (If sedation given, give patient instructions): Panic Attack (ED) Is patient prescribed a controlled substance at d/c from ED?: No Referrals: Rory Miner DO [Primary Care Provider] - 1-2 days
[2019-10-26 05:17] VITALS: RESP 18
[2019-10-26] MEDS ORDERED: ALPRAZolam 1 MG TAB PO STA (07:25)
[2019-10-26 07:34] VITALS: BP 127/95; PULSE 83
== END 2019-10-26 07:35 | disposition home or self-care (01) ==
LOC: EC 04:30
DX: F41.0 Panic disorder [episodic paroxysmal anxiety] (principal); F41.9 Anxiety disorder, unspecified; R00.0 Tachycardia, unspecified
CPT/HCPCS: 99283; 96372; J2550

== ENCOUNTER → 2020-04-20 | Outpatient (CLI) | payer OTHER ==
--- NOTE | 2020-04-20 16:27 | CT ---
EXAMINATION TYPE: CT brain wo con DATE OF EXAM: 04/20/2020 COMPARISON: 07/11/2014 HISTORY: 25-year-old female R51.9, Headaches and dizziness, patient on blood thinners TECHNIQUE: Examination was done in axial plane without intravenous contrast. Coronal and sagittal r econstructions performed. CT DLP: 1121 mGycm Automated exposure control for dose reduction was used. FINDINGS: There is no evidence of acute intracranial hemorrhage, acute ischemic changes, mass, mass-effect, or extra-axial fluid collection. There is no effacement of cerebral sulci or basal subarachnoid cister ns. There is no hydrocephalus. There is no midline shift. Reyes-white matter distinction is preserv ed. There is 4.5 mm of right-sided cerebellar tonsillar ectopia and 4.0 mm on the left. Mild mucosal thickening right ethmoid air cells. Mastoid air cells well pneumatized. Orbits and globe s are intact. IMPRESSION: 1. There is 4.5 mm of cerebellar tonsillar ectopia. This is considered indeterminate between benign c erebellar tonsillar ectopia and Chiari I malformation by some classification systems. Clinically marleny elate. 2. Otherwise, no acute intracranial abnormality seen. 3. Mild chronic right ethmoid sinus disease.
== END | disposition home or self-care (01) ==
LOC: RADCTMAIN 13:52
PROVIDERS: ATTEND Family Medicine
DX: G93.89 Other specified disorders of brain (principal); J32.2 Chronic ethmoidal sinusitis
CPT/HCPCS: 70450

== ENCOUNTER 2022-07-08 18:53 | Emergency (ER) | payer OTHER ==
[2022-07-08 19:06] VITALS: BP 135/82; PULSE 102; RESP 20; TEMP 98.2
[2022-07-08] MEDS ORDERED: ENOXAPARIN 40 MG/0.4 ML SYRINGE SQ STA (19:22)
--- NOTE | 2022-07-08 19:39 | ED ---
Recheck HPI - General Chief Complaint: Recheck/Abnormal Lab/Rx Stated Complaint: med review Time Seen by Provider: 07/08/22 19:10 Source: patient, RN notes reviewed Mode of arrival: ambulatory Limitations: no limitations - History of Present Illness Initial Comments: This is a 27-year-old female who presents to the emergency department for medication adjustments. 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 She was diagnosed with this in 2019. She was told that she had an undiagnosed clotting disorder. She had a positive at home test this morning. She called her PCP, who advised she come to the emergency department to get started on Lovenox. She has never been on Lovenox before. States that she is and would be approximately 4 weeks . She previously had miscarriages at 30 weeks and 26 weeks as the result of the clotting disorder that had been undiagnosed at the time. She is currently trying to become established with a high-risk BAR ATTENDANT but does not have the contact information for anyone. She otherwise denies any concerns or complaints. Denies any fevers, chills, sore throat, cough, dyspnea, chest pain, palpitations, abdominal pain, nausea, vomiting, diarrhea, back pain, or headaches. MD Complaint: other (Requests Lovenox prescription) - Related Data Home Medications Medication Instructions Recorded Confirmed Metoclopramide [Reglan] 10 mg PO Q8H PRN 03/14/18 07/19/19 Ondansetron [Zofran ODT] 4 mg PO Q8H 03/14/18 07/19/19 Vit No.180/Iron/Folic 1 tab PO DAILY 07/19/19 07/19/19 [ Plus Tablet] Previous Rx's Medication Instructions Recorded Enoxaparin Sodium 50 mg SQ Q12H #60 each 07/08/22 Allergies Allergy/AdvReac Type Severity Reaction Status Date / Time No Known Allergies Allergy Verified 07/08/22 19:06 Review of Systems ROS Statement: Those systems with pertinent positive or pertinent negative responses have been documented in the HPI. ROS Other: All systems not noted in ROS Statement are negative. Past Medical History Past Medical History: Deep Vein Thrombosis (DVT) Additional Past Medical History / Comment(s): anxiety and nausea, 2 miscarriage, preeclampsia History of Any Multi-Drug Resistant Organisms: None Reported Past Surgical History: Adenoidectomy, Section, Tonsillectomy Past Anesthesia/Blood Transfusion Reactions: Postoperative Nausea & Vomiting (PONV) Past Psychological History: Anxiety, Panic Disorder Smoking Status: Never smoker Past Alcohol Use History: None Reported Past Drug Use History: Marijuana - Past Family History Father Family Medical History: Hypertension General Exam Limitations: no limitations General appearance: alert, in no apparent distress Head exam: Present: atraumatic, normocephalic, normal inspection Respiratory exam: Present: normal lung sounds bilaterally. Absent: respiratory distress, wheezes, rales, rhonchi, stridor Cardiovascular Exam: Present: regular rate, normal rhythm, normal heart sounds. Absent: systolic murmur, diastolic murmur, rubs, gallop, clicks Neurological exam: Present: alert, oriented X3, CN II-XII intact Psychiatric exam: Present: normal affect, normal mood Skin exam: Present: warm, dry, intact, normal color. Absent: rash Course Vital Signs 07/08/22 18:59 Temperature 98.2 F Pulse Rate 102 H Respiratory 20 Rate Blood Pressure 135/82 O2 Sat by Pulse 99 Oximetry Medical Decision Making - Medical Decision Making This is a 27-year-old female who presents to the emergency department for a Love nox prescription. Was pt. sent in by a medical professional or institution? @ -Her PCP Did you speak to anyone other than the patient for history? @ -No Did you review nursing and triage notes? @ -Yes, and I agree, it is accurate with regards to the patient's symptoms. Were old charts reviewed? @ -No Differential Diagnosis? @ -Not applicable What testing was considered but not performed? (CT, X-rays, U/S, labs)? Why? @ -None What meds were considered but not given? Why? @ -None Did you discuss the management of the patient with other professionals? @ -No Did you reconcile home meds? @ -No Was smoking cessation discussed for >3mins.? @ -No Was critical care preformed (if so, how long)? @ -No Were there social determinants of health that impacted care today? How? (Homelessness, low income, unemployed, alcoholism, drug addiction, transportation, low edu. Level, literacy, decrease access to med. care, long term, rehab)? @ -No Was there de-escalation of care discussed even if they declined? (Discuss DNR or withdrawal of care, Hospice)? @ -No What co-morbidities impacted this encounter? (DM, HTN, Smoking, COPD, CAD, Cancer, CVA, Hep., AIDS, mental health diagnosis, sleep apnea, morbid obesity)? @ -, chronic DVT Was patient admitted / discharged? @ -Discharged. Patient given a dose of Lovenox in the emergency department and a prescription was provided with dosing instructions reviewed. Patient will be on 1mg/kg (50mg) every 12 hours per DVT guidelines. She will be taking this indefinitely until instructed otherwise by her BAR ATTENDANT due to the chronic nature of the DVT. She was given information for high-risk BAR ATTENDANT's, and I advised she contact them to become established as soon as possible. She is otherwise instructed to follow up with her primary care provider and begin taking a vitamin. Undiagnosed new problem with uncertain prognosis? @ -None Drug Therapy requiring intensive monitoring for toxicity (Heparin, Nitro, Insulin, Cardizem)? @ -None Were any procedures done? @ -None Diagnosis/symptom? @ - Acute, or Chronic, or Acute on Chronic? @ -Acute Uncomplicated (without systemic symptoms) or Complicated (systemic symptoms)? @ -Uncomplicated Side effects of treatment? @ -None Exacerbation, Progression, or Severe Exacerbation] @ -Not applicable Poses a threat to life or bodily function? @ -No Diagnosis/symptom? @ -Chronic DVT Acute, or Chronic, or Acute on Chronic? @ -Chronic Uncomplicated (without systemic symptoms) or Complicated (systemic symptoms)? @ -Uncomplicated Side effects of treatment? @ -None Exacerbation, Progression, or Severe Exacerbation] @ -No Poses a threat to life or bodily function? @ -No Return precautions reviewed in depth, the patient is instructed to return to the emergency department with any new, worsening, or concerning symptoms. Patient verbalized understanding. This case was discussed in detail with the attending ED physician, Dr. Ramirez. Presentation, findings, and treatment plan discussed in detail as well. Disposition Clinical Impression: , Chronic deep vein thrombosis (DVT) Disposition: HOME SELF-CARE Instructions (If sedation given, give patient instructions): Enoxaparin (By injection), (ED) Additional Instructions: Return to the emergency department with any new, worsening, or concerning symptoms. The Lovenox will be injected every 12 hours. I did list a few highway engineer/GYN's. Contact them to become established for ongoing management. Make sure that you're taking a vitamin. Follow up with your primary care provider in 1-2 days. Prescriptions: Enoxaparin Sodium 50 mg SQ Q12H #60 each Is patient prescribed a controlled substance at d/c from ED?: No Referrals: Rory Miner DO [Primary Care Provider] - 1-2 days Yaritza Aquino MD [REFERRING] - 1-2 days Kosta Mclean MD [REFERRING] - 1-2 days Coco Mcconnell MD [REFERRING] - 1-2 days
== END 2022-07-08 20:03 | disposition home or self-care (01) ==
LOC: EC 18:53
DX: O22.31 Deep phlebothrombosis in pregnancy, first trimester (principal); O99.341 Other mental disorders complicating pregnancy, first trimester; F41.9 Anxiety disorder, unspecified; F12.90 Cannabis use, unspecified, uncomplicated; Z3A.01 Less than 8 weeks gestation of pregnancy
CPT/HCPCS: 99281 ×2; 96372; J1650

== ENCOUNTER 2024-02-11 09:56 | Emergency (ER) | payer OTHER ==
[2024-02-11 10:19] VITALS: RESP 18
--- NOTE | 2024-02-11 10:43 | ED ---
Headache HPI - General Chief Complaint: Headache Stated Complaint: migraine Time Seen by Provider: 02/11/24 10:40 Source: RN notes reviewed Mode of arrival: ambulatory Limitations: no limitations - History of Present Illness Initial Comments: 28-year-old female with history of migraines presenting to the ER with chief complaint of headache x 5 days. Describes a constant pain in bilateral temples that radiates to the back of the neck. She is also experiencing nausea and took Zofran with no relief. Patient states she has a fear of vomiting and a history of anxiety. She does have a history of migraines, states this feels similar in quality to previous migraines. She states she has a clotting disorder and is on Lovenox. - Related Data Home Medications Medication Instructions Recorded Confirmed Metoclopramide [Reglan] 10 mg PO Q8H PRN 03/14/18 07/19/19 Ondansetron [Zofran ODT] 4 mg PO Q8H 03/14/18 07/19/19 Vit No.180/Iron/Folic 1 tab PO DAILY 07/19/19 07/19/19 [ Plus Tablet] Previous Rx's Medication Instructions Recorded Enoxaparin Sodium 50 mg SQ Q12H #60 each 07/08/22 Allergies Allergy/AdvReac Type Severity Reaction Status Date / Time metoclopramide AdvReac Nausea & Verified 02/11/24 11:26 Vomiting Review of Systems ROS Statement: Those systems with pertinent positive or pertinent negative responses have been documented in the HPI. ROS Other: All systems not noted in ROS Statement are negative. Past Medical History Past Medical History: Deep Vein Thrombosis (DVT) Additional Past Medical History / Comment(s): anxiety and nausea, 2 miscarriage, preeclampsia History of Any Multi-Drug Resistant Organisms: None Reported Past Surgical History: Adenoidectomy, Section, Tonsillectomy Past Anesthesia/Blood Transfusion Reactions: Postoperative Nausea & Vomiting (PONV) Past Psychological History: Anxiety, Panic Disorder Smoking Status: Never smoker Past Alcohol Use History: None Reported Past Drug Use History: Marijuana - Past Family History Father Family Medical History: Hypertension General Exam Limitations: no limitations General appearance: alert, in no apparent distress Head exam: Present: atraumatic, normocephalic, normal inspection Eye exam: Present: normal appearance, PERRL, EOMI. Absent: scleral icterus, conjunctival injection, periorbital swelling Neurological exam: Present: alert, oriented X3, CN II-XII intact Psychiatric exam: Present: normal affect, normal mood Skin exam: Present: warm, dry, intact, normal color. Absent: rash Course Vital Signs 02/11/24 02/11/24 02/11/24 10:17 11:03 11:16 Temperature 98 F 97.9 F Pulse Rate 123 H 119 H 99 Respiratory 18 24 18 Rate Blood Pressure 130/87 156/100 156/89 O2 Sat by Pulse 100 100 Oximetry 02/11/24 02/11/24 11:38 12:45 Temperature 98.1 F 98.1 F Pulse Rate 78 118 H Respiratory 18 18 Rate Blood Pressure 120/72 126/81 O2 Sat by Pulse 98 Oximetry Medical Decision Making - Medical Decision Making Was pt. sent in by a medical professional or institution (, PA, [employer]INE, urgent care, hospital, or fpc...) When possible be specific @ -No Did you speak to anyone other than the patient for history (EMS, parent, family, police, friend...)? What history was obtained from this source @ -No Did you review nursing and triage notes (agree or disagree)? Why? @ -I reviewed and agree with nursing and triage notes Were old charts reviewed (outside hosp., previous admission, EMS record, old EKG, old radiological studies, urgent care reports/EKG's, fpc records)? Report findings @ -No old charts were reviewed Differential Diagnosis (chest pain, altered mental status, abdominal pain women, abdominal pain men, vaginal bleeding, weakness, fever, dyspnea, syncope, headache, dizziness, GI bleed, back pain, seizure, CVA, palpatations, mental health, musculoskeletal)? @ -Differential Headache: Migraine, tension, cluster, carbon monoxide, central venous thrombosis, pension karma temporal arteritis, acute closure glaucoma, intercranial hemorrhage, mastoiditis, sinusitis, head injury, this is not meant to be an all-inclusive list. EKG interpreted by me (3pts min.). @ -None X-rays interpreted by me (1pt min.). @ -None done CT interpreted by me (1pt min.). @ -CT head revealed no acute process, low-lying cerebellar tonsils redemonstrated measuring up to 4 mm U/S interpreted by me (1pt. min.). @ -None done What testing was considered but not performed or refused? (CT, X-rays, U/S, labs)? Why? @ -None What meds were considered but not given or refused? Why? @ -None Did you discuss the management of the patient with other professionals (professionals i.e. , PA, [employer]ACHINE, lab, RT, psych nurse, social research assistant, document review specialist, teacher, tank officer, rn case management)? Give summary @ -No Was smoking cessation discussed for >3mins.? @ -No Was critical care preformed (if so, how long)? @ -No Were there social determinants of health that impacted care today? How? (Homelessness, low income, unemployed, alcoholism, drug addiction, transportation, low edu. Level, literacy, decrease access to med. care, [facility], rehab)? @ -No Was there de-escalation of care discussed even if they declined (Discuss DNR or withdrawal of care, Hospice)? DNR status @ -No What co-morbidities impacted this encounter? (DM, HTN, Smoking, COPD, CAD, Cancer, CVA, ARF, Chemo, Hep., AIDS, mental health diagnosis, sleep apnea, morb id obesity)? @ -None Was patient admitted / discharged? Hospital course, mention meds given and route, prescriptions, significant lab abnormalities, going to OR and other pertinent info. @ -Charge. This is a 28-year-old female presenting with headache x 5 days. Patient does have a history of migraines and this feels similar in quality to previous migraines. Patient is on Lovenox for blood clotting disorder. Vital signs remarkable for mild tachycardia, otherwise unremarkable. Patient states she is very anxious as she has a fear of vomiting. Neurological examination is unremarkable. Patient is provided with IV fluids, analgesics, and antiemetics. CT brain obtained which revealed no acute process. Upon reevaluation, patient states symptoms has improved and feels stable for discharge. I believe this is reasonable at this time. Advise close follow-up with PCP. Case was discussed with my ED attending Dr. Dowling. Patient discharged in stable condition. Undiagnosed new problem with uncertain prognosis? @ -No Drug Therapy requiring intensive monitoring for toxicity (Heparin, Nitro, Insulin, Cardizem)? @ -No Were any procedures done? @ -No Diagnosis/symptom? @ -Headache Acute, or Chronic, or Acute on Chronic? @ -Acute Uncomplicated (without systemic symptoms) or Complicated (systemic symptoms)? @ -Uncomplicated Side effects of treatment? @ -No Exacerbation, Progression, or Severe Exacerbation? @ -No Poses a threat to life or bodily function? How? (Chest pain, [place], OR, pneumonia, PE, COPD, DKA, ARF, appy, cholecystitis, CVA, Diverticulitis, Homicidal, Suicidal, threat to staff... and all critical care pts) @ -No Disposition Clinical Impression: Headache Disposition: HOME SELF-CARE Condition: Stable Instructions (If sedation given, give patient instructions): Acute Headache (ED) Additional Instructions: Please return to the Emergency Department if symptoms worsen or any other concerns. Is patient prescribed a controlled substance at d/c from ED?: No Referrals: Rory Miner DO [Primary Care Provider] - 1-2 days Time of Disposition: 12:34
[2024-02-11] MEDS: SODIUM CHLORIDE 0.9% 1,000 ML IV STA (10:48)
[2024-02-11] MEDS: METOCLOPRAMIDE 5 MG/ML 2 ML VIAL IVP STA (10:51)
[2024-02-11] MEDS: LORazepam 2 MG/ML INJ IV STA ×2 (10:52→11:14)
[2024-02-11 11:40] VITALS: TEMP 98.1
--- NOTE | 2024-02-11 11:57 | CT ---
EXAMINATION TYPE: CT brain wo con CT DLP: 1125.4 mGycm, Automated exposure control for dose reduction was used. DATE OF EXAM: 02/11/2024 11:45 AM COMPARISON: Prior CT Brain from 04/20/2020. CLINICAL INDICATION:Female, 28 years old with history of headache x 5 days, migraine x3 days. TECHNIQUE: Brain: Multiple axial CT images of the brain were obtained without IV contrast. . Coronal and sagitta l reformats reviewed. FINDINGS: Brain: Extra-axial spaces: No abnormal extra-axial fluid collections. Ventricular system: Within normal limits Cerebral parenchyma: No acute intraparenchymal hemorrhage or mass effect. The mcneal-white junction is well differentiated. Cerebellum: Low-lying cerebellar tonsils redemonstrated measuring up to 4 mm. Mass effect: No evidence of midline shift. Intracranial vasculature: unremarkable Soft tissues: Normal. Calvarium/osseous structures: No depressed skull fracture. Paranasal sinuses and mastoid air cells: Clear Visualized orbits: Orbital contents are intact. IMPRESSION: 1. No acute intracranial process. 2. Low-lying cerebellar tonsils redemonstrated measuring up to 4 mm. This is again considered indeter minate between benign cerebellar tonsillar ectopia and Chiari I malformation by some classification s ystems. Correlate clinically. [facility], , 02/11/2024 11:54 AM
[2024-02-11 12:46] VITALS: BP 126/81; PULSE 118
== END 2024-02-11 12:47 | disposition home or self-care (01) ==
LOC: EC 09:56
DX: G43.909 Migraine, unspecified, not intractable, without status migrainosus (principal); Z88.8 Allergy status to other drugs, medicaments and biological substances
CPT/HCPCS: 70450; 99284; 96374; 96375; 96361; J2060; J2765

== ENCOUNTER → 2024-08-25 | Outpatient (CLI) | payer OTHER ==
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
== END | disposition home or self-care (01) ==
LOC: RADMRIMAIN 20:45
PROVIDERS: ATTEND Family Medicine
DX: G93.5 Compression of brain (principal); G93.89 Other specified disorders of brain; E04.1 Nontoxic single thyroid nodule
CPT/HCPCS: 72141

== ENCOUNTER → 2024-11-12 | Outpatient (CLI) | payer OTHER ==
--- NOTE | 2024-11-13 08:45 | MR ---
INDICATION: Patient age:Female; 29 years old; Reason for study: G93.5; H. COMPARISON: MR cervical spine 08/25/2024, CT brain 02/11/2024, 04/20/2020. TECHNIQUE: Multi planar, multi sequence imaging was performed through the brain without intravenous c ontrast. FINDINGS: The mcneal-white junctions, ventricular system, basal cisterns appear unremarkable. Age-appropriate cer ebral parenchymal volume. Diffusion-weighted imaging shows no evidence of restricted diffusion to sug gest acute/subacute infarct. Intracranial arterial flow voids are maintained. Redemonstration of cere bellar tonsillar ectopia approximately 5 mm below the foramen magnum. Midline structures show no abno rmality. Few small bilateral frontal lobe subcortical white matter T2/FLAIR hyperintense foci measuri ng up to 4 mm. The susceptibility weighted images do not reveal any evidence for micro-hemorrhage. The bone marrow signal is within normal limits. The globes are unremarkable. Minimal mucosal thicken ing of the inferior bilateral maxillary sinuses and ethmoid sinuses. IMPRESSION: 1. No evidence of intracranial mass or acute/subacute infarct. 2. Redemonstration of cerebellar tonsillar ectopia of 5 mm. This is indeterminate between benign cere bellar tonsillar ectopia and Chiari I malformation by some classification systems. Correlate clinical ly. 3. Nonspecific minimal white matter changes. Etiologies include chronic migraines, demyelinating dise ase, small vessel ischemic disease, likely related to small vessel ischemic disease, vasculitis, Lyme disease and other considerations. [facility], , 11/13/2024 8:43 AM
== END | disposition home or self-care (01) ==
LOC: RADMRIMAIN 20:45
PROVIDERS: ATTEND Family Medicine
DX: G93.5 Compression of brain (principal); R90.82 White matter disease, unspecified; G43.909 Migraine, unspecified, not intractable, without status migrainosus
CPT/HCPCS: 70551